=== PATIENT | male | born 1965 | race Caucasian/White ===

== ENCOUNTER 2020-04-06 18:05 | Emergency (ER) | payer SELFPAY ==
[~2020-04-06] VITALS: Ht 175.3 cm; Wt 99.8 kg
[2020-04-06 18:39] LABS: BASOPHILS % 0.4 % (0.0-1.0); EOSINOPHILS # (AUTO) 0.2 (0.0-0.4); EOSINOPHILS % 2.4 % (0.0-6.0); HEMATOCRIT 43.1 % (38.2-49.6); HEMOGLOBIN 14.6 g/dL (14.0-18.0); LYMPHOCYTES # (AUTO) 2.4 (1.0-3.2); LYMPHOCYTES % 30.9 % (18.0-39.1); MEAN CORPUSCULAR HEMOGLOBIN 27.4 pg (28-32); MEAN CORPUSCULAR HGB CONC 33.9 g/dL (31-35); MEAN CORPUSCULAR VOLUME 80.9 fL (81-99); MONOCYTES # (AUTO) 0.4 (0.2-0.8); MONOCYTES % 5.7 % (4.4-11.3); NEUTROPHILS # (AUTO) 4.6 (2.1-6.9); NEUTROPHILS % 59.8 % (38.7-80.0); PLATELET COUNT 285 x10e3/uL (140-360); RED BLOOD COUNT 5.33 x10e6/uL (4.3-5.7); RED CELL DISTRIBUTION WIDTH 12.5 % (11.7-14.4)
--- NOTE | 2020-04-06 18:39 | Emergency Department Note ---
History of Present Illnes History of Present Illness Chief Complaint: Chest Pain History of Present Illness This is a 54 year old male Chief Complaint Comment PATIENT IN FROM [place] E WITH COMPLAINTS OF HEAD PAIN S/P FALL. ALSO WITH COMPLAINTS OF CHEST PAIN X 2 WEEKS. PATIENT REPORTS THAT HE IS A DIABETIC AND HAS NOT BEEN ON HIS MEDICATION X 6 MONTHS. Historian: Patient Arrival Mode: Car Gate Services Supervisor Required: No Onset (how long ago): day(s) (2) Location: Head Quality: Dull Radiation: Reports non-radiation Severity: mild Onset quality: sudden Duration (how long): day(s) (2) Progression: unchanged Chronicity: new Context: Denies recent illness, Denies recent surgery Relieving factors: none Exacerbating factors: none Associated symptoms: Reports denies other symptoms Treatments prior to arrival: none Past Medical/Family History Physician Review I have reviewed the patient's past medical and family history. Any updates have been documented here. Past Medical History Recent Fever: No Clinical Suspicion of Infectio: No New/Unexplained Change in Ment: No Past Medical History: Hypertension, Diabetes, Hyperlipedemia Other Surgery: LEFT HAND Social History Smoking Cessation: Unknown if ever smoked Counseling Performed: No Alcohol Use: Occasional Any Illegal Drug Use: No Physically hurt or threatened: No Other Last Tetanus: UNKNOWN Any Pre-Existing Lines (PICC,: No Review of Systems Review of Systems Constitutional: Reports no symptoms EENTM: Reports no symptoms Cardiovascular: Reports as per HPI, Reports chest pain (x2 weeks) Respiratory: Reports no symptoms Gastrointestinal: Reports no symptoms Genitourinary: Reports no symptoms Musculoskeletal: Reports no symptoms Integumentary: Reports no symptoms Neurological: Reports headache Psychological: Reports no symptoms Endocrine: Reports no symptoms Hematological/Lymphatic: Reports no symptoms Physical Exam Related Data Allergies: Coded Allergies: No Known Allergies (Unverified , 07/28/12) Triage Vital Signs Vital Signs Date Time Temp Pulse Resp B/P (MAP) Pulse Ox O2 Delivery O2 Flow Rate FiO2 04/06/20 18:20 98.9 78 16 139/100 99 Room Air Vital signs reviewed: Yes Physical Exam CONSTITUTIONAL Constitutional: Present well-developed, Present well-nourished HENT HENT: Present normocephalic, Present atraumatic, Present oropharynx clear/moist, Present nose normal HENT L/R: Present left ext ear normal, Present right ext ear normal EYES Eyes: Reports PERRL, Reports conjunctivae normal NECK Neck: Present ROM normal PULMONARY Pulmonary: Present effort normal, Present breath sounds normal CARDIOVASCULAR Cardiovascular: Present regular rhythm, Present heart sounds normal, Present capillary refill normal, Present normal rate GASTROINTESTINAL Abdominal: Present soft, Present nontender, Present bowel sounds normal GENITOURINARY Genitourinary: Present exam deferred SKIN Skin: Present warm, Present dry MUSCULOSKELETAL Musculoskeletal: Present ROM normal NEUROLOGICAL Neurological: Present alert, Present oriented x 3, Present no gross motor or sensory deficits PSYCHOLOGICAL Psychological: Present mood/affect normal, Present judgement normal Results Laboratory Laboratory Laboratory Tests Test 04/06/20 18:30 Procedures 12 Lead ECG Interpretation ECG Interpretation : ECG: ECG 1 Gate Services Supervisor: Interpreted by ED physician Date: Apr 06, 2020 Rhythm: sinus rhythm Rate: normal BPM: 79 QRS axis: normal ST segments normal: Yes T waves normal: Yes Clinical Impression: non-specific ECG Assessment & Plan Medical Decision Making MDM 54-year-old male with a past medical history significant for diabetes presents for chest pain for 2 weeks and headache after hitting his head. He is concerned he has a concussion. Examination shows no trauma to head, no focal neurologic deficits, cranial nerves II-12 are intact. Prostate stable, within acceptable limits. He will not require a head CT. CardioPulmonary workup is largely unremarkable and patient's permission discharge. Reassessment Reassessment time: 19:28 Reassessment Well appearing, NAD Assessment & Plan Final Impression: (1) Chest pain Depart Disposition: HOME, SELF-CARE Last Vital Signs Date Time Temp Pulse Resp B/P (MAP) Pulse Ox O2 Delivery O2 Flow Rate FiO2 04/06/20 18:20 98.9 78 16 139/100 99 Room Air Home Meds No Active Prescriptions or Reported Meds RAHUL COX MD Apr 06, 2020 18:39
[2020-04-06 18:57] LABS: ALANINE AMINOTRANSFERASE 23 IU/L (0-55); ALBUMIN 3.9 g/dL (3.5-5.0); ALBUMIN/GLOBULIN RATIO 1.1 (0.8-2.0); ALKALINE PHOSPHATASE 90 IU/L (40-150); BLOOD UREA NITROGEN 11 mg/dL (7-26); BUN/CREATININE RATIO 10 (6-25); CALCIUM 9.6 mg/dL (8.4-10.2); CARBON DIOXIDE 22 mmol/L (22-29); CHLORIDE 102 mmol/L (98-107); CREATININE, SERUM 1.06 mg/dL (0.72-1.25); EST GLOMERULAR FILTRATION RATE > 60 ML/MIN (60-); GLUCOSE 324 mg/dL (74-118); LIPASE 21 U/L (8-78); SODIUM 138 mmol/L (136-145)
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
--- NOTE | 2020-04-06 20:12 | Diagnostic Imaging Report ---
EXAMINATION: CHEST SINGLE (PORTABLE) INDICATION: Chest pain. COMPARISON: Chest x-ray on 08/18/2019. FINDINGS: TUBES and LINES: None. LUNGS: Normal lung volumes. Lungs are clear. No consolidations. PLEURA: No pleural effusion or pneumothorax. HEART AND MEDIASTINUM: The cardiomediastinal silhouette is unremarkable. BONES AND SOFT TISSUES: No acute osseous lesion. Soft tissues are unremarkable. UPPER ABDOMEN: No free air under the diaphragm. IMPRESSION: No acute thoracic radiographic abnormality. Signed by: Shawna Guerra MD on 04/06/2020 8:09 PM
== END 2020-04-06 20:09 | disposition home or self-care (01) ==
LOC: ER 18:19
DX: R07.9 Chest pain, unspecified (principal); E11.65 Type 2 diabetes mellitus with hyperglycemia; R51 Headache; I10 Essential (primary) hypertension; E78.5 Hyperlipidemia, unspecified
CPT/HCPCS: 36415; 71045; 80053; 83690; 84484; 85025; 93005; 99283

== ENCOUNTER 2020-05-07 22:35 | Emergency (ER) | payer SELFPAY ==
[~2020-05-07] VITALS: Ht 182.9 cm; Wt 99.8 kg
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
[2020-05-07] MEDS ORDERED: MORPHINE SULFATE INJ 4 MG/ML INJ 1ML IV STA (22:53)
[2020-05-07] MEDS ORDERED: ONDANSETRON HCL INJ 2MG/ML 2ML 2 MG/ML VIAL IV STA (22:59)
[2020-05-07 23:10] LABS: BASOPHILS % 0.5 % (0.0-1.0); HEMATOCRIT 41.5 % (38.2-49.6); HEMOGLOBIN 14.1 g/dL (14.0-18.0); LYMPHOCYTES # (AUTO) 1.4 (1.0-3.2); LYMPHOCYTES % 32.5 % (18.0-39.1); MEAN CORPUSCULAR VOLUME 79.5 fL (81-99); MONOCYTES # (AUTO) 0.4 (0.2-0.8); MONOCYTES % 10.4 % (4.4-11.3); NEUTROPHILS # (AUTO) 2.4 (2.1-6.9); NEUTROPHILS % 55.7 % (38.7-80.0); PLATELET COUNT 145 x10e3/uL (140-360); RED BLOOD COUNT 5.22 x10e6/uL (4.3-5.7); RED CELL DISTRIBUTION WIDTH 12.1 % (11.7-14.4)
[2020-05-07 23:31] LABS: ALANINE AMINOTRANSFERASE 34 IU/L (0-55); ALBUMIN 4.1 g/dL (3.5-5.0); ALBUMIN/GLOBULIN RATIO 1.4 (0.8-2.0); ALKALINE PHOSPHATASE 77 IU/L (40-150); BLOOD UREA NITROGEN 14 mg/dL (7-26); BUN/CREATININE RATIO 13 (6-25); CALCIUM 8.5 mg/dL (8.4-10.2); CARBON DIOXIDE 25 mmol/L (22-29); CHLORIDE 96 mmol/L (98-107); CREATININE, SERUM 1.11 mg/dL (0.72-1.25); EST GLOMERULAR FILTRATION RATE > 60 ML/MIN (60-); SODIUM 134 mmol/L (136-145)
[2020-05-07 23:47] LABS: GLUCOSE 412 mg/dL (74-118)
[2020-05-07] MEDS ORDERED: SODIUM CHLORIDE 0.9% 1000ML 1,000 ML ONE (23:57)
[2020-05-07] MEDS ORDERED: IOPAMIDOL 370 MG/ML 200 ML INFUS..BTL INJ ONE (23:57)
[2020-05-07] MEDS ORDERED: SODIUM CHLORIDE 0.9% 50ML 50 ML ONE (23:57)
[2020-05-08] MEDS ORDERED: SODIUM CHLORIDE 0.9% 1000ML 1,000 ML IV ONE
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
--- NOTE | 2020-05-08 02:04 | NUR ---
O2 saturation noted to drop to 89% on room air. Patient in no distress at this time but states he does feel short of breath. Patient placed on 2L NC.
[2020-05-08 02:35] VITALS: BP 135/83
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
--- OUTSIDE RECORDS SUMMARY | 2020-05-08 16:49 | XMS REPORT | Continuity of Care Document ---
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 HEMATOLOGY RBC 5.21 4.70 - 6.10 01/20/2020 [facility] HEMATOLOGY Hgb 14.4 14.0 - 18.0 01/20/2020 [facility] HEMATOLOGY Hct 42.7 42.0 - 54.0 01/20/2020 [facility] HEMATOLOGY MCV 82.0 80.0 - 94.0 01/20/2020 [facility] HEMATOLOGY MCH 27.6 27.0 - 31.0 01/20/2020 [facility] HEMATOLOGY MCHC 33.7 32.0 - 36.0 01/20/2020 [facility] HEMATOLOGY RDW 13.6 11.5 - 14.5 01/20/2020 [facility] HEMATOLOGY Platelet 287 133 - 450 01/20/2020 [facility] HEMATOLOGY MPV 7.5 7.4 - 10.4 01/20/2020 [facility] HEMATOLOGY Segs 59.1 45.0 - 75.0 01/20/2020 [facility] HEMATOLOGY Lymphocytes 32.0 20.0 - 40.0 01/20/2020 [facility] HEMATOLOGY Monocytes 5.8 2.0 - 12.0 01/20/2020 [facility] HEMATOLOGY Eosinophils 2.7 0.0 - 4.0 01/20/2020 [facility] HEMATOLOGY Basophils 0.4 0.0 - 1.0 01/20/2020 [facility] HEMATOLOGY Neutrophils # 5.5 1.5 - 8.1 01/20/2020 [facility] HEMATOLOGY Lymphocytes # 3.0 1.0 - 5.5 01/20/2020 [facility] HEMATOLOGY Monocytes # 0.5 0.0 - 0.8 01/20/2020 [facility] HEMATOLOGY Eosinophils # 0.3 0.0 - 0.5 01/20/2020 [facility] CARDIAC ENZYMES Troponin-I <0.02 0.00 - 0.40 01/18/2020 [facility] CARDIAC ENZYMES Total CK 85 12 - 191 01/18/2020 [facility] CHEM PANEL Glucose Lvl 261 70 - 99 01/18/2020 [facility] CHEM PANEL BUN 15 7 - 22 01/18/2020 [facility] CHEM PANEL Creatinine Lvl 1.06 0.50 - 1.40 01/18/2020 [facility] CHEM PANEL Sodium Lvl 137 135 - 145 01/18/2020 [facility] CHEM PANEL Potassium Lvl 4.7 3.5 - 5.1 01/18/2020 [facility] CHEM PANEL Chloride Lvl 101 95 - 109 01/18/2020 [facility] CHEM PANEL CO2 30 24 - 32 01/18/2020 [facility] CHEM PANEL Calcium Lvl 9.6 8.5 - 10.5 01/18/2020 [facility] CHEM PANEL Total Protein 7.6 6.4 - 8.4 01/18/2020 [facility] CHEM PANEL Albumin Lvl 3.7 3.5 - 5.0 01/18/2020 [facility] CHEM PANEL ALT 30 0 - 65 01/18/2020 [facility] CHEM PANEL AST 15 0 - 37 01/18/2020 [facility] CHEM PANEL Alk Phos 87 39 - 136 01/18/2020 [facility] CHEM PANEL Bili Total 0.4 0.2 - 1.3 01/18/2020 [facility] CHEM PANEL AGAP 10.7 10.0 - 20.0 01/18/2020 [facility] CHEM PANEL B/C Ratio 14 6 - 25 01/18/2020 [facility] CHEM PANEL Globulin 3.9 2.7 - 4.2 01/18/2020 [facility] CHEM PANEL A/G Ratio 0.9 0.7 - 1.6 01/18/2020 [facility] CHEM PANEL eGFR 80 01/18/2020 Result Comment: The eGFR is calculated using the CKD-EPI formula. In most young, healthy individuals the eGFR will be >90 mL/min/1.73m2. The eGFR declines with age. An eGFR of 60-89 may be normal in some populations, particularly the elderly, for whom the CKD-EPI formula has not been extensively validated. Use of the eGFR is not recommended in the following populations:

Individuals with unstable creatinine concentrations, including patients and those with serious co-morbid conditions.

Patients with extremes in muscle mass or diet.

The data above are obtained from the National Kidney Disease Education Program (NKDEP) which additionally recommends that when the eGFR is used in patients with extremes of body mass index for purposes of drug dosing, the eGFR should be multiplied by the estimated BMI. [facility] CHEM PANEL Lipase Lvl 82 73 - 393 01/18/2020 [facility] HEMATOLOGY WBC 8.4 3.7 - 10.4 01/18/2020 [facility] HEMATOLOGY RBC 5.27 4.70 - 6.10 01/18/2020 [facility] HEMATOLOGY Hgb 14.9 14.0 - 18.0 01/18/2020 [facility] HEMATOLOGY Hct 43.3 42.0 - 54.0 01/18/2020 [facility] HEMATOLOGY MCV 82.2 80.0 - 94.0 01/18/2020 [facility] HEMATOLOGY MCH 28.3 27.0 - 31.0 01/18/2020 [facility] HEMATOLOGY MCHC 34.4 32.0 - 36.0 01/18/2020 [facility] HEMATOLOGY RDW 13.8 11.5 - 14.5 01/18/2020 [facility] HEMATOLOGY Platelet 264 133 - 450 01/18/2020 [facility] HEMATOLOGY MPV 7.3 7.4 - 10.4 01/18/2020 [facility] HEMATOLOGY Segs 68.6 45.0 - 75.0 01/18/2020 [facility] HEMATOLOGY Lymphocytes 22.3 20.0 - 40.0 01/18/2020 [facility] HEMATOLOGY Monocytes 6.1 2.0 - 12.0 01/18/2020 [facility] HEMATOLOGY Eosinophils 2.5 0.0 - 4.0 01/18/2020 [facility] HEMATOLOGY Basophils 0.5 0.0 - 1.0 01/18/2020 [facility] HEMATOLOGY Neutrophils # 5.7 1.5 - 8.1 01/18/2020 [facility] HEMATOLOGY Lymphocytes # 1.9 1.0 - 5.5 01/18/2020 [facility] HEMATOLOGY Monocytes # 0.5 0.0 - 0.8 01/18/2020 [facility] HEMATOLOGY Eosinophils # 0.2 0.0 - 0.5 01/18/2020 [facility] CHEM PANEL Glucose Lvl 194 70 - 99 01/14/2020 [facility] CHEM PANEL BUN 8 7 - 22 01/14/2020 [facility] CHEM PANEL Creatinine Lvl 0.76 0.50 - 1.40 01/14/2020 [facility] CHEM PANEL Sodium Lvl 139 135 - 145 01/14/2020 [facility] CHEM PANEL Potassium Lvl 3.4 3.5 - 5.1 01/14/2020 [facility] CHEM PANEL Chloride Lvl 104 95 - 109 01/14/2020 [facility] CHEM PANEL CO2 32 24 - 32 01/14/2020 [facility] CHEM PANEL Calcium Lvl 8.8 8.5 - 10.5 01/14/2020 [facility] CHEM PANEL AGAP 6.4 10.0 - 20.0 01/14/2020 [facility] CHEM PANEL eGFR 104 01/14/2020 Result Comment: The eGFR is calculated using the CKD-EPI formula. In most young, healthy individuals the eGFR will be >90 mL/min/1.73m2. The eGFR declines with age. An eGFR of 60-89 may be normal in some populations, particularly the elderly, for whom the CKD-EPI formula has not been extensively validated. Use of the eGFR is not recommended in the following populations:

Individuals with unstable creatinine concentrations, including patients and those with serious co-morbid conditions.

Patients with extremes in muscle mass or diet.

The data above are obtained from the National Kidney Disease Education Program (NKDEP) which additionally recommends that when the eGFR is used in patients with extremes of body mass index for purposes of drug dosing, the eGFR should be multiplied by the estimated BMI. [facility] CHEM PANEL Albumin Lvl 3.6 3.5 - 5.0 01/14/2020 [facility] CHEM PANEL ALT 27 0 - 65 01/14/2020 [facility] CHEM PANEL AST 10 0 - 37 01/14/2020 [facility] CHEM PANEL Bili Direct <0.1 0.0 - 0.3 01/14/2020 [facility] CHEM PANEL Total Protein 7.5 6.4 - 8.4 01/14/2020 [facility] CHEM PANEL Globulin 3.9 2.7 - 4.2 01/14/2020 [facility] CHEM PANEL A/G Ratio 0.9 0.7 - 1.6 01/14/2020 [facility] CHEM PANEL Alk Phos 81 39 - 136 01/14/2020 [facility] CHEM PANEL Bili Total 0.4 0.2 - 1.3 01/14/2020 [facility] CHEM PANEL Bili Indirect Unabl e to Calculate 0.0 - 1.0 01/14/2020 [facility] CHEM PANEL Lipase Lvl 72 73 - 393 01/14/2020 [facility] HEMATOLOGY WBC 7.9 3.7 - 10.4 01/14/2020 [facility] HEMATOLOGY RBC 5.04 4.70 - 6.10 01/14/2020 [facility] HEMATOLOGY Hgb 14.0 14.0 - 18.0 01/14/2020 [facility] HEMATOLOGY Hct 41.5 42.0 - 54.0 01/14/2020 [facility] HEMATOLOGY MCV 82.3 80.0 - 94.0 01/14/2020 [facility] HEMATOLOGY MCH 27.8 27.0 - 31.0 01/14/2020 [facility] HEMATOLOGY MCHC 33.8 32.0 - 36.0 01/14/2020 [facility] HEMATOLOGY RDW 13.6 11.5 - 14.5 01/14/2020 [facility] HEMATOLOGY Platelet 254 133 - 450 01/14/2020 [facility] HEMATOLOGY MPV 7.5 7.4 - 10.4 01/14/2020 [facility] HEMATOLOGY Segs 54.2 45.0 - 75.0 01/14/2020 [facility] HEMATOLOGY Lymphocytes 35.5 20.0 - 40.0 01/14/2020 [facility] HEMATOLOGY Monocytes 7.2 2.0 - 12.0 01/14/2020 [facility] HEMATOLOGY Eosinophils 2.5 0.0 - 4.0 01/14/2020 [facility] HEMATOLOGY Basophils 0.6 0.0 - 1.0 01/14/2020 [facility] HEMATOLOGY Neutrophils # 4.3 1.5 - 8.1 01/14/2020 [facility] HEMATOLOGY Lymphocytes # 2.8 1.0 - 5.5 01/14/2020 [facility] HEMATOLOGY Monocytes # 0.6 0.0 - 0.8 01/14/2020 [facility] HEMATOLOGY Eosinophils # 0.2 0.0 - 0.5 01/14/2020 [facility] RAPID Grp A Strep Scr Positive *ABN* (01/09/20 12:15 AM) Negative 01/09/2020 [facility] CHEM PANEL Lactic Acid WB 1.6 0.5 - 2.2 04/04/2018 [facility] CHEM PANEL B/C Ratio 14 6 - 25 04/04/2018 [facility] CHEM PANEL A/G Ratio 1.0 0.7 - 1.6 04/04/2018 [facility] CHEM PANEL Globulin 3.6 2.7 - 4.2 04/04/2018 [facility] CHEM PANEL AGAP 13.0 10.0 - 20.0 04/04/2018 [facility] CHEM PANEL eGFR 96 04/04/2018 Result Comment: The eGFR is calculated using the CKD-EPI formula. In most young, healthy individuals the eGFR will be >90 mL/min/1.73m2. The eGFR declines with age. An eGFR of 60-89 may be normal in some populations, particularly the elderly, for whom the CKD-EPI formula has not been extensively validated. Use of the eGFR is not recommended in the following populations:

Individuals with unstable creatinine concentrations, including patients and those with serious co-morbid conditions.

Patients with extremes in muscle mass or diet.

The data above are obtained from the National Kidney Disease Education Program (NKDEP) which additionally recommends that when the eGFR is used in patients with extremes of body mass index for purposes of drug dosing, the eGFR should be multiplied by the estimated BMI. [facility] CHEM PANEL Glucose Lvl 251 70 - 99 04/04/2018 [facility] CHEM PANEL Creatinine Lvl 0.92 0.50 - 1.40 04/04/2018 [facility] CHEM PANEL AST 18 0 - 37 04/04/2018 [facility] CHEM PANEL Albumin Lvl 3.7 3.5 - 5.0 04/04/2018 [facility] CHEM PANEL Calcium Lvl 8.6 8.5 - 10.5 04/04/2018 [facility] CHEM PANEL ALT 37 0 - 65 04/04/2018 [facility] CHEM PANEL Total Protein 7.3 6.4 - 8.4 04/04/2018 [facility] CHEM PANEL Alk Phos 95 39 - 136 04/04/2018 [facility] CHEM PANEL Bili Total 0.9 0.2 - 1.3 04/04/2018 [facility] CHEM PANEL Chloride Lvl 106 95 - 109 04/04/2018 [facility] CHEM PANEL Potassium Lvl 4.0 3.5 - 5.1 04/04/2018 [facility] CHEM PANEL Sodium Lvl 142 135 - 145 04/04/2018 [facility] CHEM PANEL CO2 27 24 - 32 04/04/2018 [facility] CHEM PANEL BUN 13 7 - 22 04/04/2018 [facility] HEMATOLOGY WBC 10.1 3.7 - 10.4 04/04/2018 [facility] HEMATOLOGY Hct 42.4 42.0 - 54.0 04/04/2018 [facility] HEMATOLOGY MCV 81.4 80.0 - 94.0 04/04/2018 [facility] HEMATOLOGY Hgb 14.6 14.0 - 18.0 04/04/2018 [facility] HEMATOLOGY RBC 5.21 4.70 - 6.10 04/04/2018 [facility] HEMATOLOGY MCH 28.1 27.0 - 31.0 04/04/2018 [facility] HEMATOLOGY MCHC 34.5 32.0 - 36.0 04/04/2018 [facility] HEMATOLOGY MPV 8.0 7.4 - 10.4 04/04/2018 [facility] HEMATOLOGY Platelet 235 133 - 450 04/04/2018 [facility] HEMATOLOGY RDW 13.4 11.5 - 14.5 04/04/2018 [facility] HEMATOLOGY Monocytes 5.3 2.0 - 12.0 04/04/2018 [facility] HEMATOLOGY Segs 73.2 45.0 - 75.0 04/04/2018 [facility] HEMATOLOGY Eosinophils 1.9 0.0 - 4.0 04/04/2018 [facility] HEMATOLOGY Lymphocytes 19.3 20.0 - 40.0 04/04/2018 [facility] HEMATOLOGY Basophils 0.3 0.0 - 1.0 04/04/2018 [facility] HEMATOLOGY Lymphocytes # 2.0 1.0 - 5.5 04/04/2018 [facility] HEMATOLOGY Monocytes # 0.5 0.0 - 0.8 04/04/2018 [facility] HEMATOLOGY Neutrophils # 7.4 1.5 - 8.1 04/04/2018 [facility] HEMATOLOGY Eosinophils # 0.2 0.0 - 0.5 04/04/2018 [facility] URINE AND STOOL UA Sq Epi Occasional /LPF Few /LPF 03/27/2017 [facility] URINE AND STOOL UA Glucose 500 03/27/2017 [facility] URINE AND STOOL UA Ketones Negative 03/27/2017 [facility] URINE AND STOOL UA Urobilinogen <=1.0 mg/dL 0.1 - 1.0 03/27/2017 [facility] URINE AND STOOL UA Leuk Est Negative (03/27/17 3:18 AM) Negative 03/27/2017 [facility] URINE AND STOOL UA WBC <1 0 - 5 03/27/2017 [facility] URINE AND STOOL UA Turbidity Clear (03/27/17 3:18 AM) Clear 03/27/2017 [facility] URINE AND STOOL UA Spec Grav 1.007 <=1.030 03/27/2017 [facility] URINE AND STOOL UA Color Light Yellow *NA* (03/27/17 3:18 AM) Yellow 03/27/2017 [facility] URINE AND STOOL UA pH 6.0 5.0 - 8.0 03/27/2017 [facility] URINE AND STOOL UA Nitrite Negative (03/27/17 3:18 AM) Negative 03/27/2017 [facility] URINE AND STOOL UA Blood Negative (03/27/17 3:18 AM) Negative 03/27/2017 [facility] URINE AND STOOL UA Bili Negative *NA* (03/27/17 3:18 AM) Negative 03/27/2017 [facility] URINE AND STOOL UA Protein Negative mg/dL Negative mg/dL 03/27/2017 [facility] CARDIAC ENZYMES CK MB Index <0.9 0.0 - 2.5 03/27/2017 [facility] CARDIAC ENZYMES BNP 19 <=100 pg/mL 03/27/2017 [facility] CARDIAC ENZYMES CK MB <0.5 0.5 - 3.6 03/27/2017 [facility] CARDIAC ENZYMES Total CK 58 12 - 191 03/27/2017 [facility] CARDIAC ENZYMES Troponin-I <0.02 0.00 - 0.40 03/27/2017 [facility] CHEM PANEL Lipase Lvl 213 73 - 393 03/27/2017 [facility] CHEM PANEL eGFR 92 03/27/2017 Result Comment: The eGFR is calculated using the CKD-EPI formula. In most young, healthy individuals the eGFR will be >90 mL/min/1.73m2. The eGFR declines with age. An eGFR of 60-89 may be normal in some populations, particularly the elderly, for whom the CKD-EPI formula has not been extensively validated. Use of the eGFR is not recommended in the following populations:

Individuals with unstable creatinine concentrations, including patients and those with serious co-morbid conditions.

Patients with extremes in muscle mass or diet.

The data above are obtained from the National Kidney Disease Education Program (NKDEP) which additionally recommends that when the eGFR is used in patients with extremes of body mass index for purposes of drug dosing, the eGFR should be multiplied by the estimated BMI. [facility] CHEM PANEL Creatinine Lvl 0.96 0.50 - 1.40 03/27/2017 [facility] CHEM PANEL CO2 30 24 - 32 03/27/2017 [facility] CHEM PANEL Total Protein 7.8 6.4 - 8.4 03/27/2017 [facility] CHEM PANEL BUN 10 7 - 22 03/27/2017 [facility] CHEM PANEL Glucose Lvl 212 70 - 99 03/27/2017 [facility] CHEM PANEL Bili Total 0.3 0.2 - 1.3 03/27/2017 [facility] CHEM PANEL Alk Phos 101 39 - 136 03/27/2017 [facility] CHEM PANEL Albumin Lvl 3.8 3.5 - 5.0 03/27/2017 [facility] CHEM PANEL AST 16 0 - 37 03/27/2017 [facility] CHEM PANEL ALT 46 0 - 65 03/27/2017 [facility] CHEM PANEL A/G Ratio 1.0 0.7 - 1.6 03/27/2017 [facility] CHEM PANEL AGAP 10.8 10.0 - 20.0 03/27/2017 [facility] CHEM PANEL Globulin 4.0 2.7 - 4.2 03/27/2017 [facility] CHEM PANEL B/C Ratio 10 6 - 25 03/27/2017 [facility] CHEM PANEL Calcium Lvl 9.2 8.5 - 10.5 03/27/2017 [facility] CHEM PANEL Potassium Lvl 3.8 3.5 - 5.1 03/27/2017 [facility] CHEM PANEL Chloride Lvl 105 95 - 109 03/27/2017 [facility] CHEM PANEL Sodium Lvl 142 135 - 145 03/27/2017 [facility] HEMATOLOGY Monocytes # 0.6 0.0 - 0.8 03/27/2017 [facility] HEMATOLOGY Eosinophils # 0.1 0.0 - 0.5 03/27/2017 [facility] HEMATOLOGY Lymphocytes 20.8 20.0 - 40.0 03/27/2017 [facility] HEMATOLOGY Segs 72.7 45.0 - 75.0 03/27/2017 [facility] HEMATOLOGY Monocytes 5.2 2.0 - 12.0 03/27/2017 [facility] HEMATOLOGY Eosinophils 0.8 0.0 - 4.0 03/27/2017 [facility] HEMATOLOGY Lymphocytes # 2.2 1.0 - 5.5 03/27/2017 [facility] HEMATOLOGY Segs-Bands # 7.8 1.5 - 8.1 03/27/2017 [facility] HEMATOLOGY Basophils 0.5 0.0 - 1.0 03/27/2017 [facility] HEMATOLOGY RDW 13.2 11.5 - 14.5 03/27/2017 [facility] HEMATOLOGY MPV 7.5 7.4 - 10.4 03/27/2017 [facility] HEMATOLOGY Platelet 266 133 - 450 03/27/2017 [facility] HEMATOLOGY MCH 28.2 27.0 - 31.0 03/27/2017 [facility] HEMATOLOGY MCHC 35.1 32.0 - 36.0 03/27/2017 [facility] HEMATOLOGY Hgb 14.5 14.0 - 18.0 03/27/2017 [facility] HEMATOLOGY RBC 5.15 4.70 - 6.10 03/27/2017 [facility] HEMATOLOGY MCV 80.5 80.0 - 94.0 03/27/2017 [facility] HEMATOLOGY Hct 41.4 42.0 - 54.0 03/27/2017 [facility] HEMATOLOGY WBC 10.8 3.7 - 10.4 03/27/2017 [facility] DRUG SCREEN U Amph Scr Nega tive *NA* (01/13/17 6:06 PM) Negative 01/13/2017 [facility] DRUG SCREEN U Courtney Scr Nega tive *NA* (01/13/17 6:06 PM) Negative 01/13/2017 [facility] DRUG SCREEN UDS Note See Note *NA* (01/13/17 6:06 PM) 01/13/2017 [facility] DRUG SCREEN U Opiate Scr Nega tive *NA* (01/13/17 6:06 PM) Negative 01/13/2017 [facility] DRUG SCREEN U Phencyc Scr Nega tive *NA* (01/13/17 6:06 PM) Negative 01/13/2017 [facility] DRUG SCREEN U Benzodia Scr Nega tive *NA* (01/13/17 6:06 PM) Negative 01/13/2017 [facility] DRUG SCREEN U Cocaine Scr Nega tive *NA* (01/13/17 6:06 PM) Negative 01/13/2017 [facility] DRUG SCREEN U Cannab Scr Nega tive *NA* (01/13/17 6:06 PM) Negative 01/13/2017 [facility] URINE AND STOOL UA Sq Epi None Seen 01/13/2017 [facility] URINE AND STOOL UA WBC <1 0 - 5 01/13/2017 [facility] URINE AND STOOL UA RBC <1 0 - 2 01/13/2017 [facility] URINE AND STOOL UA Urobilinogen <=1.0 mg/dL 0.1 - 1.0 01/13/2017 [facility] URINE AND STOOL UA Glucose 500 01/13/2017 [facility] URINE AND STOOL UA Nitrite Negative (01/13/17 6:06 PM) Negative 01/13/2017 [facility] URINE AND STOOL UA Blood Negative (01/13/17 6:06 PM) Negative 01/13/2017 [facility] URINE AND STOOL UA Ketones Trace mg/dL Negative mg/dL 01/13/2017 [facility] URINE AND STOOL UA Bili Negative *NA* (01/13/17 6:06 PM) Negative 01/13/2017 [facility] URINE AND STOOL UA Leuk Est Negative (01/13/17 6:06 PM) Negative 01/13/2017 [facility] URINE AND STOOL UA Protein Negative mg/dL Negative mg/dL 01/13/2017 [facility] URINE AND STOOL UA pH 5.0 5.0 - 8.0 01/13/2017 [facility] URINE AND STOOL UA Turbidity Clear (01/13/17 6:06 PM) Clear 01/13/2017 [facility] URINE AND STOOL UA Spec Grav 1.026 <=1.030 01/13/2017 [facility] URINE AND STOOL UA Color Yellow *NA* (01/13/17 6:06 PM) Yellow 01/13/2017 [facility] CARDIAC ENZYMES CK MB Index <1.0 0.0 - 2.5 01/13/2017 [facility] CARDIAC ENZYMES Total CK 51 12 - 191 01/13/2017 [facility] CARDIAC ENZYMES CK MB <0.5 0.5 - 3.6 01/13/2017 [facility] CARDIAC ENZYMES Troponin-I <0.02 0.00 - 0.40 01/13/2017 [facility] CHEM PANEL ALT 53 0 - 65 01/13/2017 [facility] CHEM PANEL Creatinine Lvl 0.88 0.50 - 1.40 01/13/2017 [facility] CHEM PANEL Total Protein 7.7 6.4 - 8.4 01/13/2017 [facility] CHEM PANEL Alk Phos 121 39 - 136 01/13/2017 [facility] CHEM PANEL Bili Total 0.4 0.2 - 1.3 01/13/2017 [facility] CHEM PANEL AST 31 0 - 37 01/13/2017 [facility] CHEM PANEL B/C Ratio 15 6 - 25 01/13/2017 [facility] CHEM PANEL Globulin 3.9 2.7 - 4.2 01/13/2017 [facility] CHEM PANEL A/G Ratio 1.0 0.7 - 1.6 01/13/2017 [facility] CHEM PANEL eGFR 100 01/13/2017 Result Comment: The eGFR is calculated using the CKD-EPI formula. In most young, healthy individuals the eGFR will be >90 mL/min/1.73m2. The eGFR declines with age. An eGFR of 60-89 may be normal in some populations, particularly the elderly, for whom the CKD-EPI formula has not been extensively validated. Use of the eGFR is not recommended in the following populations:

Individuals with unstable creatinine concentrations, including patients and those with serious co-morbid conditions.

Patients with extremes in muscle mass or diet.

The data above are obtained from the National Kidney Disease Education Program (NKDEP) which additionally recommends that when the eGFR is used in patients with extremes of body mass index for purposes of drug dosing, the eGFR should be multiplied by the estimated BMI. [facility] CHEM PANEL CO2 30 24 - 32 01/13/2017 [facility] CHEM PANEL AGAP 12.2 10.0 - 20.0 01/13/2017 [facility] CHEM PANEL Calcium Lvl 9.3 8.5 - 10.5 01/13/2017 [facility] CHEM PANEL Albumin Lvl 3.8 3.5 - 5.0 01/13/2017 [facility] CHEM PANEL Chloride Lvl 101 95 - 109 01/13/2017 [facility] CHEM PANEL Glucose Lvl 207 70 - 99 01/13/2017 [facility] CHEM PANEL BUN 13 7 - 22 01/13/2017 [facility] CHEM PANEL Sodium Lvl 139 135 - 145 01/13/2017 [facility] CHEM PANEL Potassium Lvl 4.2 3.5 - 5.1 01/13/2017 [facility] HEMATOLOGY Segs-Bands # 6.6 1.5 - 8.1 01/13/2017 [facility] HEMATOLOGY Eosinophils 2.3 0.0 - 4.0 01/13/2017 [facility] HEMATOLOGY Basophils 0.9 0.0 - 1.0 01/13/2017 [facility] HEMATOLOGY Basophils # 0.1 0.0 - 0.2 01/13/2017 [facility] HEMATOLOGY Eosinophils # 0.2 0.0 - 0.5 01/13/2017 [facility] HEMATOLOGY Lymphocytes # 2.4 1.0 - 5.5 01/13/2017 [facility] HEMATOLOGY Monocytes # 0.6 0.0 - 0.8 01/13/2017 [facility] HEMATOLOGY Segs 66.6 45.0 - 75.0 01/13/2017 [facility] HEMATOLOGY Monocytes 6.1 2.0 - 12.0 01/13/2017 [facility] HEMATOLOGY Lymphocytes 24.1 20.0 - 40.0 01/13/2017 [facility] HEMATOLOGY RBC 5.30 4.70 - 6.10 01/13/2017 [facility] HEMATOLOGY WBC 9.9 3.7 - 10.4 01/13/2017 [facility] HEMATOLOGY MPV 7.5 7.4 - 10.4 01/13/2017 [facility] HEMATOLOGY Platelet 244 133 - 450 01/13/2017 [facility] RDW 13.1 11.5 - 14.5 01/13/2017 [facility] HEMATOLOGY MCHC 34.9 32.0 - 36.0 01/13/2017 [facility] MCH 27.9 27.0 - 31.0 01/13/2017 [facility] Hgb 14.8 14.0 - 18.0 01/13/2017 [facility] HEMATOLOGY MCV 80.0 80.0 - 94.0 01/13/2017 [facility] HEMATOLOGY Hct 42.4 42.0 - 54.0 01/13/2017 [facility] URINE AND STOOL UA Color Straw 07/11/2016 [facility] URINE AND STOOL UA Ketones Negative 07/11/2016 [facility] URINE AND STOOL UA Urobilinogen <=1.0 mg/dL 0.1 - 1.0 07/11/2016 [facility] URINE AND STOOL UA Sq Epi None Seen 07/11/2016 [facility] URINE AND STOOL UA Nitrite Negative (07/10/16 6:30 PM) Negative 07/11/2016 [facility] URINE AND STOOL UA WBC 1 0 - 5 07/11/2016 [facility] URINE AND STOOL UA Mucus Few /LPF None Seen /LPF 07/11/2016 [facility] URINE AND STOOL UA Bili Negative *NA* (07/10/16 6:30 PM) Negative 07/11/2016 [facility] URINE AND STOOL UA Leuk Est Negative (07/10/16 6:30 PM) Negative 07/11/2016 [facility] URINE AND STOOL UA Glucose Negative mg/dL Negative mg/dL 07/11/2016 [facility] URINE AND STOOL UA Protein Negative mg/dL Negative mg/dL 07/11/2016 [facility] URINE AND STOOL UA Blood Negative (07/10/16 6:30 PM) Negative 07/11/2016 [facility] URINE AND STOOL UA Turbidity Clear (07/10/16 6:30 PM) Clear 07/11/2016 [facility] URINE AND STOOL UA Spec Grav 1.003 <=1.030 07/11/2016 [facility] URINE AND STOOL UA pH 7.0 5.0 - 8.0 07/11/2016 [facility] CARDIAC ENZYMES CK MB Index <1.1 0.0 - 2.5 11/13/2015 [facility] CARDIAC ENZYMES Troponin-I <0.02 0.00 - 0.40 11/13/2015 [facility] CARDIAC ENZYMES CK MB <0.5 0.5 - 3.6 11/13/2015 [facility] CARDIAC ENZYMES Total CK 45 12 - 191 11/13/2015 [facility] CHEM PANEL BUN 14 7 - 22 11/13/2015 [facility] CHEM PANEL Bili Total 0.4 0.2 - 1.3 11/13/2015 [facility] CHEM PANEL Alk Phos 90 39 - 136 11/13/2015 [facility] CHEM PANEL AST 20 0 - 37 11/13/2015 [facility] CHEM PANEL A/G Ratio 1.0 0.7 - 1.6 11/13/2015 [facility] CHEM PANEL Globulin 4.0 2.0 - 4.0 11/13/2015 [facility] CHEM PANEL B/C Ratio 12 6 - 25 11/13/2015 [facility] CHEM PANEL Creatinine Lvl 1.12 0.50 - 1.40 11/13/2015 [facility] CHEM PANEL ALT 33 0 - 65 11/13/2015 [facility] CHEM PANEL Total Protein 8.0 6.4 - 8.4 11/13/2015 [facility] CHEM PANEL eGFR 77 11/13/2015 Result Comment: The eGFR is calculated using the CKD-EPI formula. In most young, healthy individuals the eGFR will be >90 mL/min/1.73m2. The eGFR declines with age. An eGFR of 60-89 may be normal in some populations, particularly the elderly, for whom the CKD-EPI formula has not been extensively validated. Use of the eGFR is not recommended in the following populations:

Individuals with unstable creatinine concentrations, including patients and those with serious co-morbid conditions.

Patients with extremes in muscle mass or diet.

The data above are obtained from the National Kidney Disease Education Program (NKDEP) which additionally recommends that when the eGFR is used in patients with extremes of body mass index for purposes of drug dosing, the eGFR should be multiplied by the estimated BMI. [facility] CHEM PANEL Albumin Lvl 4.0 3.5 - 5.0 11/13/2015 [facility] CHEM PANEL AGAP 13.1 10.0 - 20.0 11/13/2015 [facility] CHEM PANEL Calcium Lvl 9.1 8.5 - 10.5 11/13/2015 [facility] CHEM PANEL CO2 28 24 - 32 11/13/2015 [facility] CHEM PANEL Potassium Lvl 4.1 3.5 - 5.1 11/13/2015 [facility] CHEM PANEL Sodium Lvl 138 135 - 145 11/13/2015 [facility] CHEM PANEL Chloride Lvl 101 95 - 109 11/13/2015 [facility] CHEM PANEL Glucose Lvl 188 70 - 99 11/13/2015 [facility] HEMATOLOGY Eosinophils # 0.0 0.0 - 0.5 11/13/2015 [facility] HEMATOLOGY Lymphocytes # 1.5 1.0 - 5.5 11/13/2015 [facility] HEMATOLOGY Basophils # 0.0 0.0 - 0.2 11/13/2015 [facility] HEMATOLOGY Monocytes # 0.7 0.0 - 0.8 11/13/2015 [facility] HEMATOLOGY Segs-Bands # 3.7 1.5 - 8.1 11/13/2015 [facility] HEMATOLOGY Basophils 0.5 0.0 - 1.0 11/13/2015 [facility] HEMATOLOGY Eosinophils 0.7 0.0 - 4.0 11/13/2015 [facility] HEMATOLOGY Monocytes 12.3 2.0 - 12.0 11/13/2015 [facility] HEMATOLOGY Lymphocytes 25.4 20.0 - 40.0 11/13/2015 [facility] Segs 61.1 45.0 - 75.0 11/13/2015 [facility] RDW 13.4 11.5 - 14.5 11/13/2015 [facility] HEMATOLOGY MPV 7.5 7.4 - 10.4 11/13/2015 [facility] Platelet 215 133 - 450 11/13/2015 [facility] MCV 83.0 80.0 - 94.0 11/13/2015 [facility] HEMATOLOGY MCHC 32.5 32.0 - 36.0 11/13/2015 [facility] MCH 26.9 27.0 - 31.0 11/13/2015 [facility] Hct 45.6 42.0 - 54.0 11/13/2015 [facility] HEMATOLOGY Hgb 14.8 14.0 - 18.0 11/13/2015 [facility] HEMATOLOGY RBC 5.50 4.70 - 6.10 11/13/2015 [facility] HEMATOLOGY WBC 6.0 3.7 - 10.4 11/13/2015 [facility] CHEM PANEL Calcium Lvl 9.3 8.5 - 10.5 09/12/2015 [facility] CHEM PANEL Potassium Lvl 3.8 3.5 - 5.1 09/12/2015 [facility] CHEM PANEL Sodium Lvl 138 135 - 145 09/12/2015 [facility] CHEM PANEL Chloride Lvl 103 95 - 109 09/12/2015 [facility] CHEM PANEL eGFR 86 09/12/2015 Result Comment: The eGFR is calculated using the CKD-EPI formula. In most young, healthy individuals the eGFR will be >90 mL/min/1.73m2. The eGFR declines with age. An eGFR of 60-89 may be normal in some populations, particularly the elderly, for whom the CKD-EPI formula has not been extensively validated. Use of the eGFR is not recommended in the following populations:

Individuals with unstable creatinine concentrations, including patients and those with serious co-morbid conditions.

Patients with extremes in muscle mass or diet.

The data above are obtained from the National Kidney Disease Education Program (NKDEP) which additionally recommends that when the eGFR is used in patients with extremes of body mass index for purposes of drug dosing, the eGFR should be multiplied by the estimated BMI. [facility] CHEM PANEL Creatinine Lvl 1.02 0.50 - 1.40 09/12/2015 [facility] CHEM PANEL CO2 27 24 - 32 09/12/2015 [facility] CHEM PANEL Glucose Lvl 129 70 - 99 09/12/2015 [facility] CHEM PANEL BUN 18 7 - 22 09/12/2015 [facility] CHEM PANEL AGAP 11.8 10.0 - 20.0 09/12/2015 [facility] HEMATOLOGY RBC 5.55 4.70 - 6.10 09/12/2015 [facility] HEMATOLOGY Hgb 15.1 14.0 - 18.0 09/12/2015 [facility] HEMATOLOGY WBC 10.5 3.7 - 10.4 09/12/2015 [facility] HEMATOLOGY Hct 45.8 42.0 - 54.0 09/12/2015 [facility] HEMATOLOGY MCV 82.6 80.0 - 94.0 09/12/2015 [facility] HEMATOLOGY MPV 7.8 7.4 - 10.4 09/12/2015 [facility] HEMATOLOGY RDW 12.9 11.5 - 14.5 09/12/2015 [facility] HEMATOLOGY Platelet 302 133 - 450 09/12/2015 [facility] HEMATOLOGY MCH 27.3 27.0 - 31.0 09/12/2015 [facility] HEMATOLOGY MCHC 33.0 32.0 - 36.0 09/12/2015 [facility] HEMATOLOGY Segs-Bands # 7.4 1.5 - 8.1 09/12/2015 [facility] HEMATOLOGY Lymphocytes # 2.2 1.0 - 5.5 09/12/2015 [facility] HEMATOLOGY Basophils 0.3 0.0 - 1.0 09/12/2015 [facility] HEMATOLOGY Eosinophils 2.7 0.0 - 4.0 09/12/2015 [facility] HEMATOLOGY Monocytes # 0.6 0.0 - 0.8 09/12/2015 [facility] HEMATOLOGY Eosinophils # 0.3 0.0 - 0.5 09/12/2015 [facility] HEMATOLOGY Basophils # 0.0 0.0 - 0.2 09/12/2015 [facility] HEMATOLOGY Monocytes 5.8 2.0 - 12.0 09/12/2015 [facility] HEMATOLOGY Segs 70.4 45.0 - 75.0 09/12/2015 [facility] HEMATOLOGY Lymphocytes 20.8 20.0 - 40.0 09/12/2015 [facility] VIRAL - SEROLOGY Influ B Negative (09/12/15 4:12 PM) Negative 09/12/2015 [facility] VIRAL - SEROLOGY Influ A Negative (09/12/15 4:12 PM) Negative 09/12/2015 [facility] CHEM PANEL Lipase Lvl 128 73 - 393 06/06/2015 [facility] CHEM PANEL A/G Ratio 1.1 0.7 - 1.6 06/06/2015 [facility] CHEM PANEL Globulin 3.4 2.0 - 4.0 06/06/2015 [facility] CHEM PANEL B/C Ratio 13 6 - 25 06/06/2015 [facility] CHEM PANEL AGAP 12.9 10.0 - 20.0 06/06/2015 [facility] CHEM PANEL Albumin Lvl 3.8 3.5 - 5.0 06/06/2015 [facility] CHEM PANEL Total Protein 7.2 6.4 - 8.4 06/06/2015 [facility] CHEM PANEL CO2 27 24 - 32 06/06/2015 [facility] CHEM PANEL Glucose Lvl 209 70 - 99 06/06/2015 [facility] CHEM PANEL BUN 12 7 - 22 06/06/2015 [facility] CHEM PANEL Alk Phos 86 39 - 136 06/06/2015 [facility] CHEM PANEL ALT 44 0 - 65 06/06/2015 [facility] CHEM PANEL AST 19 0 - 37 06/06/2015 [facility] CHEM PANEL Bili Total 0.5 0.2 - 1.3 06/06/2015 [facility] CHEM PANEL eGFR 101 06/06/2015 Result Comment: The eGFR is calculated using the CKD-EPI formula. In most young, healthy individuals the eGFR will be >90 mL/min/1.73m2. The eGFR declines with age. An eGFR of 60-89 may be normal in some populations, particularly the elderly, for whom the CKD-EPI formula has not been extensively validated. Use of the eGFR is not recommended in the following populations:

Individuals with unstable creatinine concentrations, including patients and those with serious co-morbid conditions.

Patients with extremes in muscle mass or diet.

The data above are obtained from the National Kidney Disease Education Program (NKDEP) which additionally recommends that when the eGFR is used in patients with extremes of body mass index for purposes of drug dosing, the eGFR should be multiplied by the estimated BMI. [facility] CHEM PANEL Calcium Lvl 8.9 8.5 - 10.5 06/06/2015 [facility] CHEM PANEL Chloride Lvl 105 95 - 109 06/06/2015 [facility] CHEM PANEL Potassium Lvl 3.9 3.5 - 5.1 06/06/2015 [facility] CHEM PANEL Creatinine Lvl 0.9 0.5 - 1.4 06/06/2015 [facility] CHEM PANEL Sodium Lvl 141 135 - 145 06/06/2015 [facility] HEMATOLOGY RBC 5.03 4.70 - 6.10 06/06/2015 [facility] HEMATOLOGY Hgb 14.0 14.0 - 18.0 06/06/2015 [facility] HEMATOLOGY Hct 41.6 42.0 - 54.0 06/06/2015 [facility] HEMATOLOGY WBC 7.3 3.7 - 10.4 06/06/2015 [facility] HEMATOLOGY MCV 82.8 80.0 - 94.0 06/06/2015 [facility] HEMATOLOGY Platelet 253 133 - 450 06/06/2015 [facility] HEMATOLOGY MPV 7.3 7.4 - 10.4 06/06/2015 [facility] HEMATOLOGY RDW 12.4 11.5 - 14.5 06/06/2015 [facility] HEMATOLOGY MCHC 33.6 32.0 - 36.0 06/06/2015 [facility] HEMATOLOGY MCH 27.8 27.0 - 31.0 06/06/2015 [facility] HEMATOLOGY Segs 69.5 45.0 - 75.0 06/06/2015 [facility] HEMATOLOGY Monocytes 5.4 2.0 - 12.0 06/06/2015 [facility] HEMATOLOGY Lymphocytes 21.7 20.0 - 40.0 06/06/2015 [facility] HEMATOLOGY Basophils 0.3 0.0 - 1.0 06/06/2015 [facility] HEMATOLOGY Eosinophils 3.1 0.0 - 4.0 06/06/2015 [facility] HEMATOLOGY Segs-Bands # 5.1 1.5 - 8.1 06/06/2015 [facility] HEMATOLOGY Lymphocytes # 1.6 1.0 - 5.5 06/06/2015 [facility] HEMATOLOGY Monocytes # 0.4 0.0 - 0.8 06/06/2015 [facility] HEMATOLOGY Basophils # 0.0 0.0 - 0.2 06/06/2015 [facility] HEMATOLOGY Eosinophils # 0.2 0.0 - 0.5 06/06/2015 [facility] URINE AND STOOL Occult Bld Stl Negative (04/24/15 4:00 PM) Negative 04/24/2015 [facility] CARDIAC ENZYMES CK MB Index <1.2 0.0 - 2.5 04/24/2015 [facility] CARDIAC ENZYMES Troponin-I <0.02 0.00 - 0.40 04/24/2015 [facility] CARDIAC ENZYMES CK MB <0.5 0.5 - 3.6 04/24/2015 [facility] CARDIAC ENZYMES Total CK 41 12 - 191 04/24/2015 [facility] CHEM PANEL eGFR 101 04/24/2015 Result Comment: The eGFR is calculated using the CKD-EPI formula. In most young, healthy individuals the eGFR will be >90 mL/min/1.73m2. The eGFR declines with age. An eGFR of 60-89 may be normal in some populations, particularly the elderly, for whom the CKD-EPI formula has not been extensively validated. Use of the eGFR is not recommended in the following populations:

Individuals with unstable creatinine concentrations, including patients and those with serious co-morbid conditions.

Patients with extremes in muscle mass or diet.

The data above are obtained from the National Kidney Disease Education Program (NKDEP) which additionally recommends that when the eGFR is used in patients with extremes of body mass index for purposes of drug dosing, the eGFR should be multiplied by the estimated BMI. [facility] CHEM PANEL CO2 26 24 - 32 04/24/2015 [facility] CHEM PANEL Calcium Lvl 9.1 8.5 - 10.5 04/24/2015 [facility] CHEM PANEL Sodium Lvl 141 135 - 145 04/24/2015 [facility] CHEM PANEL Potassium Lvl 3.9 3.5 - 5.1 04/24/2015 [facility] CHEM PANEL AGAP 13.9 10.0 - 20.0 04/24/2015 [facility] CHEM PANEL Chloride Lvl 105 95 - 109 04/24/2015 [facility] CHEM PANEL Glucose Lvl 129 70 - 99 04/24/2015 [facility] CHEM PANEL BUN 14 7 - 22 04/24/2015 [facility] CHEM PANEL Creatinine Lvl 0.9 0.5 - 1.4 04/24/2015 [facility] HEMATOLOGY Monocytes # 0.3 0.0 - 0.8 04/24/2015 [facility] HEMATOLOGY Eosinophils # 0.1 0.0 - 0.5 04/24/2015 [facility] HEMATOLOGY Basophils # 0.0 0.0 - 0.2 04/24/2015 [facility] HEMATOLOGY Lymphocytes # 1.9 1.0 - 5.5 04/24/2015 [facility] HEMATOLOGY Segs-Bands # 5.1 1.5 - 8.1 04/24/2015 [facility] HEMATOLOGY Monocytes 3.9 2.0 - 12.0 04/24/2015 [facility] HEMATOLOGY Eosinophils 1.7 0.0 - 4.0 04/24/2015 [facility] HEMATOLOGY Basophils 0.2 0.0 - 1.0 04/24/2015 [facility] HEMATOLOGY Lymphocytes 25.3 20.0 - 40.0 04/24/2015 [facility] HEMATOLOGY Segs 68.9 45.0 - 75.0 04/24/2015 [facility] HEMATOLOGY RBC 5.18 4.70 - 6.10 04/24/2015 [facility] HEMATOLOGY MCH 28.0 27.0 - 31.0 04/24/2015 [facility] HEMATOLOGY MCHC 33.7 32.0 - 36.0 04/24/2015 [facility] HEMATOLOGY Platelet 251 133 - 450 04/24/2015 [facility] HEMATOLOGY MPV 7.6 7.4 - 10.4 04/24/2015 [facility] HEMATOLOGY WBC 7.4 3.7 - 10.4 04/24/2015 [facility] HEMATOLOGY Hgb 14.5 14.0 - 18.0 04/24/2015 [facility] HEMATOLOGY Hct 43.0 42.0 - 54.0 04/24/2015 [facility] HEMATOLOGY MCV 83.0 80.0 - 94.0 04/24/2015 [facility] HEMATOLOGY RDW 13.4 11.5 - 14.5 04/24/2015 [facility] TOXICOLOGY Acetaminoph Lvl <2 (04/24/15 3:02 PM) 10 - 20 04/24/2015 [facility] TOXICOLOGY Salicylate Lvl <1.7 0.0 - 30.0 04/24/2015 [facility] CARDIAC ENZYMES Troponin-I <0.02 0.00 - 0.40 04/06/2015 [facility] CARDIAC ENZYMES Troponin-I <0.02 0.00 - 0.40 04/06/2015 [facility] [facility] CARDIAC ENZYMES Total CK 40 12 - 191 04/06/2015 [facility] CARDIAC ENZYMES CK MB <0.5 0.5 - 3.6 04/06/2015 [facility] CARDIAC ENZYMES CK MB Index <1.2 0.0 - 2.5 04/06/2015 [facility] CHEM PANEL B/C Ratio 17 6 - 25 04/06/2015 [facility] CHEM PANEL AGAP 12.7 10.0 - 20.0 04/06/2015 [facility] CHEM PANEL Globulin 3.6 2.0 - 4.0 04/06/2015 [facility] CHEM PANEL Bili Total 0.6 0.2 - 1.3 04/06/2015 [facility] CHEM PANEL Alk Phos 69 39 - 136 04/06/2015 [facility] CHEM PANEL AST 8 0 - 37 04/06/2015 [facility] CHEM PANEL A/G Ratio 1.2 0.7 - 1.6 04/06/2015 [facility] CHEM PANEL Albumin Lvl 4.2 3.5 - 5.0 04/06/2015 [facility] CHEM PANEL Total Protein 7.8 6.4 - 8.4 04/06/2015 [facility] CHEM PANEL BUN 15 7 - 22 04/06/2015 [facility] CHEM PANEL Glucose Lvl 182 70 - 99 04/06/2015 [facility] CHEM PANEL ALT 26 0 - 65 04/06/2015 [facility] CHEM PANEL CO2 26 24 - 32 04/06/2015 [facility] CHEM PANEL eGFR 101 04/06/2015 Result Comment: The eGFR is calculated using the CKD-EPI formula. In most young, healthy individuals the eGFR will be >90 mL/min/1.73m2. The eGFR declines with age. An eGFR of 60-89 may be normal in some populations, particularly the elderly, for whom the CKD-EPI formula has not been extensively validated. Use of the eGFR is not recommended in the following populations:

Individuals with unstable creatinine concentrations, including patients and those with serious co-morbid conditions.

Patients with extremes in muscle mass or diet.

The data above are obtained from the National Kidney Disease Education Program (NKDEP) which additionally recommends that when the eGFR is used in patients with extremes of body mass index for purposes of drug dosing, the eGFR should be multiplied by the estimated BMI. [facility] CHEM PANEL Creatinine Lvl 0.9 0.5 - 1.4 04/06/2015 [facility] CHEM PANEL Sodium Lvl 140 135 - 145 04/06/2015 [facility] CHEM PANEL Chloride Lvl 105 95 - 109 04/06/2015 [facility] CHEM PANEL Calcium Lvl 8.8 8.5 - 10.5 04/06/2015 [facility] CHEM PANEL Potassium Lvl 3.7 3.5 - 5.1 04/06/2015 [facility] HEMATOLOGY D-Dimer <0.22 04/06/2015 [facility] HEMATOLOGY PTT 34.9 22.9 - 35.8 04/06/2015 [facility] HEMATOLOGY PT 13.5 12.0 - 14.7 04/06/2015 [facility] HEMATOLOGY INR 1.03 0.85 - 1.17 04/06/2015 [facility] HEMATOLOGY MPV 7.9 7.4 - 10.4 04/06/2015 [facility] HEMATOLOGY RDW 13.1 11.5 - 14.5 04/06/2015 [facility] HEMATOLOGY Platelet 261 133 - 450 04/06/2015 [facility] HEMATOLOGY MCH 28.0 27.0 - 31.0 04/06/2015 [facility] HEMATOLOGY MCHC 33.6 32.0 - 36.0 04/06/2015 [facility] HEMATOLOGY MCV 83.3 80.0 - 94.0 04/06/2015 [facility] HEMATOLOGY Hgb 14.5 14.0 - 18.0 04/06/2015 [facility] HEMATOLOGY Hct 43.1 42.0 - 54.0 04/06/2015 [facility] HEMATOLOGY WBC 8.7 3.7 - 10.4 04/06/2015 [facility] HEMATOLOGY RBC 5.17 4.70 - 6.10 04/06/2015 [facility] HEMATOLOGY Basophils # 0.0 0.0 - 0.2 04/06/2015 [facility] HEMATOLOGY Eosinophils # 0.1 0.0 - 0.5 04/06/2015 [facility] HEMATOLOGY Monocytes # 0.5 0.0 - 0.8 04/06/2015 [facility] HEMATOLOGY Eosinophils 1.1 0.0 - 4.0 04/06/2015 [facility] HEMATOLOGY Monocytes 5.4 2.0 - 12.0 04/06/2015 [facility] HEMATOLOGY Lymphocytes # 1.7 1.0 - 5.5 04/06/2015 [facility] HEMATOLOGY Segs-Bands # 6.4 1.5 - 8.1 04/06/2015 [facility] HEMATOLOGY Basophils 0.3 0.0 - 1.0 04/06/2015 [facility] HEMATOLOGY Lymphocytes 19.2 20.0 - 40.0 04/06/2015 [facility] HEMATOLOGY Segs 74.0 45.0 - 75.0 04/06/2015 [facility] URINE AND STOOL UA Glucose 500 04/06/2015 [facility] URINE AND STOOL UA Urobilinogen <=1.0 mg/dL 0.1 - 1.0 04/06/2015 [facility] URINE AND STOOL UA Mucus Few /LPF None Seen /LPF 04/06/2015 [facility] URINE AND STOOL UA Nitrite Negative (04/05/15 8:20 PM) Negative 04/06/2015 [facility] URINE AND STOOL UA Spec Grav 1.023 <=1.030 04/06/2015 [facility] URINE AND STOOL UA Blood Negative (04/05/15 8:20 PM) Negative 04/06/2015 [facility] URINE AND STOOL UA Leuk Est Negative (04/05/15 8:20 PM) Negative 04/06/2015 [facility] URINE AND STOOL UA Turbidity Clear (04/05/15 8:20 PM) Clear 04/06/2015 [facility] URINE AND STOOL UA Color Yellow *NA* (04/05/15 8:20 PM) Yellow 04/06/2015 [facility] URINE AND STOOL UA Protein Negative mg/dL Negative mg/dL 04/06/2015 [facility] URINE AND STOOL UA pH 5.0 5.0 - 8.0 04/06/2015 [facility] URINE AND STOOL UA Bili Negative *NA* (04/05/15 8:20 PM) Negative 04/06/2015 [facility] URINE AND STOOL UA Ketones Trace mg/dL Negative mg/dL 04/06/2015 [facility] URINE AND STOOL UA WBC 1 0 - 5 04/06/2015 [facility] URINE AND STOOL UA Bacteria Occasional /HPF None Seen /HPF 04/06/2015 [facility] URINE AND STOOL UA RBC <1 0 - 2 04/06/2015 [facility] URINE AND STOOL UA Sq Epi Occasional /LPF Few /LPF 04/06/2015 [facility] ELECTROLYTES AGAP 9.2 10.0 - 20.0 11/10/2014 [facility] ELECTROLYTES eGFR 106 11/10/2014 <sup>1</sup>Result Comment: The eGFR is calculated using the CKD-EPI formula. In most young, healthy individuals the eGFR will be >90 mL/min/1.73m2. The eGFR declines with age. An eGFR of 60-89 may be normal in some populations, particularly the elderly, for whom the CKD-EPI formula has not been extensively validated. Use of the eGFR is not recommended in the following populations:& lt;br/>
Individuals with unstable creatinine concentrations, including patients and those with serious co-morbid conditions.

Patients with extremes in muscle mass or diet.

The data above are obtained from the National Kidney Disease Education Program (NKDEP) which additionally recommends that when the eGFR is used in patients with extremes of body mass index for purposes of drug dosing, the eGFR should be multiplied by the estimated BMI. [facility] ELECTROLYTES Sodium Lvl 141 135 - 145 11/10/2014 [facility] ELECTROLYTES Creatinine Lvl 0.8 0.5 - 1.4 11/10/2014 [facility] ELECTROLYTES Potassium Lvl 3.2 3.5 - 5.1 11/10/2014 [facility] ELECTROLYTES Chloride Lvl 107 95 - 109 11/10/2014 [facility] ELECTROLYTES Calcium Lvl 9.0 8.5 - 10.5 11/10/2014 [facility] ELECTROLYTES CO2 28 24 - 32 11/10/2014 [facility] ELECTROLYTES BUN 10 7 - 22 11/10/2014 [facility] ELECTROLYTES Glucose Lvl 113 70 - 99 11/10/2014 <sup>2</sup>Interpretive Data: Adult ref erence range values reflect the clinical guidelines
of the [place] [employer]. [facility] HEMATOLOGY Hgb 13.3 14.0 - 18.0 11/10/2014 [facility] HEMATOLOGY MCV 81.1 80.0 - 94.0 11/10/2014 [facility] HEMATOLOGY Hct 37.9 42.0 - 54.0 11/10/2014 [facility] HEMATOLOGY RBC 4.68 4.70 - 6.10 11/10/2014 [facility] HEMATOLOGY WBC 6.7 3.7 - 10.4 11/10/2014 [facility] HEMATOLOGY MCHC 35.0 32.0 - 36.0 11/10/2014 [facility] HEMATOLOGY MCH 28.4 27.0 - 31.0 11/10/2014 [facility] HEMATOLOGY MPV 7.3 7.4 - 10.4 11/10/2014 [facility] HEMATOLOGY Platelet 239 133 - 450 11/10/2014 [facility] HEMATOLOGY RDW 13.1 11.5 - 14.5 11/10/2014 [facility] HEMATOLOGY Lymphocytes # 1.6 1.0 - 5.5 11/10/2014 [facility] HEMATOLOGY Segs 69.8 45.0 - 75.0 11/10/2014 [facility] HEMATOLOGY Monocytes # 0.3 0.0 - 0.8 11/10/2014 [facility] HEMATOLOGY Eosinophils # 0.1 0.0 - 0.5 11/10/2014 [facility] HEMATOLOGY Eosinophils 0.7 0.0 - 4.0 11/10/2014 [facility] HEMATOLOGY Basophils 0.3 0.0 - 1.0 11/10/2014 [facility] HEMATOLOGY Segs-Bands # 4.7 1.5 - 8.1 11/10/2014 [facility] HEMATOLOGY Lymphocytes 24.1 20.0 - 40.0 11/10/2014 [facility] HEMATOLOGY Monocytes 5.1 2.0 - 12.0 11/10/2014 [facility] CARDIAC ENZYMES CK MB <0.5 0.5 - 3.6 04/09/2014 [facility] CARDIAC ENZYMES Total CK 56 12 - 191 04/09/2014 [facility] CARDIAC ENZYMES Troponin-I <0.02 0.00 - 0.40 04/09/2014 [facility] CARDIAC ENZYMES CK MB Index <0.9 0.0 - 2.5 04/09/2014 [facility] CHEM PANEL Glucose Lvl 115 70 - 99 04/09/2014 <sup>2</sup>Interpretive Data: Adult ref erence range values reflect the clinical guidelines
of the [place] [employer]. [facility] CHEM PANEL Chloride Lvl 107 95 - 109 04/09/2014 [facility] CHEM PANEL Sodium Lvl 140 135 - 145 04/09/2014 [facility] CHEM PANEL Potassium Lvl 3.8 3.5 - 5.1 04/09/2014 [facility] CHEM PANEL BUN 8 7 - 22 04/09/2014 [facility] CHEM PANEL CO2 27 24 - 32 04/09/2014 [facility] CHEM PANEL AGAP 9.8 10.0 - 20.0 04/09/2014 [facility] CHEM PANEL eGFR 101 04/09/2014 <sup>1</sup>Result Comment: The eGFR is calculated using the CKD-EPI formula. In most young, healthy individuals the eGFR will be >90 mL/min/1.73m2. The eGFR declines with age. An eGFR of 60-89 may be normal in some populations, particularly the elderly, for whom the CKD-EPI formula has not been extensively validated. Use of the eGFR is not recommended in the following populations:& lt;br/>
Individuals with unstable creatinine concentrations, including patients and those with serious co-morbid conditions.

Patients with extremes in muscle mass or diet.

The data above are obtained from the National Kidney Disease Education Program (NKDEP) which additionally recommends that when the eGFR is used in patients with extremes of body mass index for purposes of drug dosing, the eGFR should be multiplied by the estimated BMI. [facility] CHEM PANEL Creatinine Lvl 0.9 0.5 - 1.4 04/09/2014 [facility] CHEM PANEL Calcium Lvl 9.4 8.5 - 10.5 04/09/2014 [facility] HEMATOLOGY WBC 10.4 3.7 - 10.4 04/09/2014 [facility] HEMATOLOGY MCHC 34.3 32.0 - 36.0 04/09/2014 [facility] HEMATOLOGY MCH 28.0 27.0 - 31.0 04/09/2014 [facility] HEMATOLOGY MCV 81.7 80.0 - 94.0 04/09/2014 [facility] HEMATOLOGY Hct 42.5 42.0 - 54.0 04/09/2014 [facility] HEMATOLOGY MPV 7.7 7.4 - 10.4 04/09/2014 [facility] HEMATOLOGY Hgb 14.6 14.0 - 18.0 04/09/2014 [facility] HEMATOLOGY RBC 5.20 4.70 - 6.10 04/09/2014 [facility] HEMATOLOGY Platelet 253 133 - 450 04/09/2014 [facility] HEMATOLOGY RDW 12.9 11.5 - 14.5 04/09/2014 [facility] HEMATOLOGY Segs 80.3 45.0 - 75.0 04/09/2014 [facility] HEMATOLOGY Monocytes 3.2 2.0 - 12.0 04/09/2014 [facility] HEMATOLOGY Lymphocytes 14.9 20.0 - 40.0 04/09/2014 [facility] HEMATOLOGY Basophils 0.3 0.0 - 1.0 04/09/2014 [facility] HEMATOLOGY Segs-Bands # 8.3 1.5 - 8.1 04/09/2014 [facility] HEMATOLOGY Eosinophils 1.3 0.0 - 4.0 04/09/2014 [facility] HEMATOLOGY Lymphocytes # 1.5 1.0 - 5.5 04/09/2014 [facility] HEMATOLOGY Monocytes # 0.3 0.0 - 0.8 04/09/2014 [facility] HEMATOLOGY Eosinophils # 0.1 0.0 - 0.5 04/09/2014 [facility] HEMATOLOGY Basophils # 0.0 0.0 - 0.2 04/09/2014 [facility] URINE AND STOOL UA Urobilinogen <=1.0 mg/dL 0.1 - 1.0 12/30/2013 [facility] URINE AND STOOL UA Mucus Few /LPF None Seen /LPF 12/30/2013 [facility] URINE AND STOOL UA Leuk Est Negative (12/30/13 1:30 PM) Negative 12/30/2013 [facility] URINE AND STOOL UA Nitrite Negative (12/30/13 1:30 PM) Negative 12/30/2013 [facility] URINE AND STOOL UA Glucose Negative mg/dL Negative mg/dL 12/30/2013 [facility] URINE AND STOOL UA Protein Negative mg/dL Negative mg/dL 12/30/2013 [facility] URINE AND STOOL UA Turbidity Clear (12/30/13 1:30 PM) Clear 12/30/2013 [facility] URINE AND STOOL UA pH 6.0 5.0 - 8.0 12/30/2013 [facility] URINE AND STOOL UA Spec Grav 1.004 <=1.030 12/30/2013 [facility] URINE AND STOOL UA Blood Negative (12/30/13 1:30 PM) Negative 12/30/2013 [facility] URINE AND STOOL UA Ketones Negative mg/dL Negative mg/dL 12/30/2013 [facility] URINE AND STOOL UA Bili Negative *NA* (12/30/13 1:30 PM) Negative 12/30/2013 [facility] URINE AND STOOL UA Sq Epi None Seen 12/30/2013 [facility] URINE AND STOOL UA Color Colorless *NA* (12/30/13 1:30 PM) Yellow 12/30/2013 [facility] CARDIAC ENZYMES Total CK 54 12 - 191 12/30/2013 [facility] CARDIAC ENZYMES Troponin-I <0.02 0.00 - 0.40 12/30/2013 [facility] CARDIAC ENZYMES CK MB <0.5 0.5 - 3.6 12/30/2013 [facility] CARDIAC ENZYMES CK MB Index <0.9 0.0 - 2.5 12/30/2013 [facility] CHEM PANEL eGFR 106 12/30/2013 <sup>1</sup>Result Comment: The eGFR is calculated using the CKD-EPI formula. In most young, healthy individuals the eGFR will be >90 mL/min/1.73m2. The eGFR declines with age. An eGFR of 60-89 may be normal in some populations, particularly the elderly, for whom the CKD-EPI formula has not been extensively validated. Use of the eGFR is not recommended in the following populations:& lt;br/>
Individuals with unstable creatinine concentrations, including patients and those with serious co-morbid conditions.

Patients with extremes in muscle mass or diet.

The data above are obtained from the National Kidney Disease Education Program (NKDEP) which additionally recommends that when the eGFR is used in patients with extremes of body mass index for purposes of drug dosing, the eGFR should be multiplied by the estimated BMI. [facility] CHEM PANEL ALT 25 0 - 65 12/30/2013 [facility] CHEM PANEL AGAP 12.4 10.0 - 20.0 12/30/2013 [facility] CHEM PANEL Bili Total 0.7 0.2 - 1.3 12/30/2013 [facility] CHEM PANEL Alk Phos 64 39 - 136 12/30/2013 [facility] CHEM PANEL B/C Ratio 9 6 - 25 12/30/2013 [facility] CHEM PANEL A/G Ratio 1.4 0.7 - 1.6 12/30/2013 [facility] CHEM PANEL AST 10 0 - 37 12/30/2013 [facility] CHEM PANEL Globulin 3.2 2.0 - 4.0 12/30/2013 [facility] CHEM PANEL Glucose Lvl 118 70 - 99 12/30/2013 <sup>2</sup>Interpretive Data: Adult ref erence range values reflect the clinical guidelines
of the [place] [employer]. [facility] CHEM PANEL Calcium Lvl 9.2 8.5 - 10.5 12/30/2013 [facility] CHEM PANEL Sodium Lvl 143 135 - 145 12/30/2013 [facility] CHEM PANEL Creatinine Lvl 0.8 0.5 - 1.4 12/30/2013 [facility] CHEM PANEL BUN 7 7 - 22 12/30/2013 [facility] CHEM PANEL CO2 28 24 - 32 12/30/2013 [facility] CHEM PANEL Chloride Lvl 106 95 - 109 12/30/2013 [facility] CHEM PANEL Potassium Lvl 3.4 3.5 - 5.1 12/30/2013 [facility] CHEM PANEL Albumin Lvl 4.4 3.5 - 5.0 12/30/2013 [facility] CHEM PANEL Total Protein 7.6 6.4 - 8.4 12/30/2013 [facility] HEMATOLOGY Platelet 234 133 - 450 12/30/2013 [facility] HEMATOLOGY RDW 12.7 11.5 - 14.5 12/30/2013 [facility] HEMATOLOGY MCH 28.4 27.0 - 31.0 12/30/2013 [facility] HEMATOLOGY MPV 7.6 7.4 - 10.4 12/30/2013 [facility] HEMATOLOGY Hgb 14.1 14.0 - 18.0 12/30/2013 [facility] HEMATOLOGY MCV 80.9 80.0 - 94.0 12/30/2013 [facility] HEMATOLOGY Hct 40.2 42.0 - 54.0 12/30/2013 [facility] HEMATOLOGY MCHC 35.1 32.0 - 36.0 12/30/2013 [facility] HEMATOLOGY RBC 4.97 4.70 - 6.10 12/30/2013 [facility] HEMATOLOGY WBC 9.3 3.7 - 10.4 12/30/2013 [facility] HEMATOLOGY Basophils # 0.0 0.0 - 0.2 12/30/2013 [facility] HEMATOLOGY Eosinophils # 0.0 0.0 - 0.5 12/30/2013 [facility] HEMATOLOGY Monocytes # 0.5 0.0 - 0.8 12/30/2013 [facility] HEMATOLOGY Segs 76.0 45.0 - 75.0 12/30/2013 [facility] HEMATOLOGY Lymphocytes # 1.7 1.0 - 5.5 12/30/2013 [facility] HEMATOLOGY Segs-Bands # 7.1 1.5 - 8.1 12/30/2013 [facility] HEMATOLOGY Basophils 0.2 0.0 - 1.0 12/30/2013 [facility] HEMATOLOGY Eosinophils 0.4 0.0 - 4.0 12/30/2013 [facility] HEMATOLOGY Monocytes 5.4 2.0 - 12.0 12/30/2013 [facility] HEMATOLOGY Lymphocytes 18.0 20.0 - 40.0 12/30/2013 [facility] Pathology Reports No Data Provided for This Section Diagnostic Reports Report Value Date Source Chest 1view DX Frontal chest r adiograph INDICATION: Pneumonia COMPARISON: 01/19/2020 FINDINGS: Heart/mediastinum: normal size no masses LUNGS: no infiltrates or effusion Support lines/tubes: none Bone structures: no acute changes Upper Abdomen: unremarkable Impression: No acute changes. 02/29/2020 [facility] Abdomen acute series w chest 1 view DX EXAM: Acute abdominal series x-ray. CLINICAL HX: - Chest pain/Left abdominal pain (Chronic). Age: 54 years. Gender: Male. TECHNIQUE: As above. Facility: [facility]. COMPARISON: Chest x-ray: Yesterday. FINDINGS: Support apparatus: None. Cardiac silhouette: Unremarkable. Mediastinum: -- Lexie: Unremarkable. -- Other: None. Lungs: -- Consolidation: Negative.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 Rate 98 01/14/2020 [facility] Respitory Rate 18 01/14/2020 [facility] Temperature Oral (F) 99.4 F 01/14/2020 [facility] Temperature Oral (F) 98.9 F 01/09/2020 [facility] Respitory Rate 16 01/09/2020 [facility] Systolic (mm Hg) 121 01/09/2020 [facility] Diastolic (mm Hg) 82 01/09/2020 [facility] Heart Rate 77 01/09/2020 [facility] Temperature Oral (F) 98.9 F 01/09/2020 [facility] Heart Rate 80 01/09/2020 [facility] Respitory Rate 16 01/09/2020 [facility] Systolic (mm Hg) 117 01/09/2020 [facility] Diastolic (mm Hg) 68 01/09/2020 [facility] Temperature Oral (F) 99.1 F 01/09/2020 [facility] Heart Rate 71 01/09/2020 [facility] Respitory Rate 16 01/09/2020 [facility] Systolic (mm Hg) 115 01/09/2020 [facility] Diastolic (mm Hg) 79 01/09/2020 [facility] Height 182.88 cm 01/08/2020 [facility] BMI Calculated 28.27 01/08/2020 [facility] Weight 94.545 01/08/2020 [facility] Respitory Rate 18 04/05/2018 [facility] Systolic (mm Hg) 111 04/05/2018 [facility] Diastolic (mm Hg) 67 04/05/2018 [facility] Respitory Rate 16 04/04/2018 [facility] Systolic (mm Hg) 103 04/04/2018 [facility] Diastolic (mm Hg) 59 04/04/2018 [facility] Systolic (mm Hg) 100 04/04/2018 [facility] Diastolic (mm Hg) 59 04/04/2018 [facility] Respitory Rate 17 04/04/2018 [facility] Heart Rate 66 04/04/2018 [facility] Weight 90.909 04/04/2018 [facility] Heart Rate 58 04/04/2018 [facility] Temperature Oral (F) 97.4 F 04/04/2018 [facility] Systolic (mm Hg) 130 02/09/2018 [facility] Diastolic (mm Hg) 89 02/09/2018 [facility] Respitory Rate 17 02/09/2018 [facility] Heart Rate 87 02/09/2018 [facility] Temperature Oral (F) 98.2 F 02/09/2018 [facility] [facility] Sy[facility] (mm Hg) 142 02/09/2018 [facility] Diastolic (mm Hg) 77 02/09/2018 [facility] Respitory Rate 16 02/09/2018 [facility] Heart Rate 90 02/09/2018 [facility] Weight 100 02/09/2018 [facility] BMI Calculated 29.9 02/09/2018 [facility] Height 182.88 cm 02/09/2018 [facility] Temperature Oral (F) 98.9 F 02/09/2018 [facility] Respitory Rate 18 02/09/2018 [facility] Heart Rate 88 02/09/2018 [facility] Systolic (mm Hg) 138 02/09/2018 [facility] Diastolic (mm Hg) 83 02/09/2018 [facility] Weight 90.909 02/01/2018 [facility] Temperature Oral (F) 97.7 F 02/01/2018 [facility] Systolic (mm Hg) 153 02/01/2018 [facility] Diastolic (mm Hg) 94 02/01/2018 [facility] Respitory Rate 16 02/01/2018 [facility] Heart Rate 80 02/01/2018 [facility] Respitory Rate 17 12/03/2017 [facility] Heart Rate 79 12/03/2017 [facility] Systolic (mm Hg) 135 12/03/2017 [facility] Diastolic (mm Hg) 84 12/03/2017 [facility] BMI Calculated 29.9 12/02/2017 [facility] Weight 100 12/02/2017 [facility] Height 182.88 cm 12/02/2017 [facility] Temperature Oral (F) 98.1 F 12/02/2017 [facility] Heart Rate 82 12/02/2017 [facility] Respitory Rate 18 12/02/2017 [facility] Systolic (mm Hg) 140 12/02/2017 [facility] Diastolic (mm Hg) 88 12/02/2017 [facility] Weight 87.273 09/13/2017 [facility] BMI Calculated 26.09 09/13/2017 [facility] Height 182.88 cm 09/13/2017 [facility] Temperature Oral (F) 97.9 F 09/13/2017 [facility] Respitory Rate 18 09/13/2017 [facility] Heart Rate 66 09/13/2017 [facility] Systolic (mm Hg) 165 09/13/2017 [facility] Diastolic (mm Hg) 84 09/13/2017 [facility] Weight 101.818 09/12/2017 [facility] BMI Calculated 30.44 09/12/2017 [facility] Height 182.88 cm 09/12/2017 [facility] Temperature Oral (F) 98.9 F 09/12/2017 [facility] Heart Rate 70 09/12/2017 [facility] Respitory Rate 18 09/12/2017 [facility] Systolic (mm Hg) 149 09/12/2017 [facility] Diastolic (mm Hg) 100 09/12/2017 [facility] Height 170.18 cm 09/11/2017 [facility] Temperature Oral (F) 98.4 F 09/11/2017 [facility] BMI Calculated 35 09/11/2017 [facility] Systolic (mm Hg) 157 09/11/2017 [facility] Diastolic (mm Hg) 92 09/11/2017 [facility] Heart Rate 71 09/11/2017 [facility] Respitory Rate 16 09/11/2017 [facility] Weight 101.364 09/11/2017 [facility] Weight 102.5 2017 [facility] BMI Calculated 30.65 2017 [facility] Temperature Oral (F) 98.3 F 2017 [facility] Height 182.88 cm 2017 [facility] Respitory Rate 18 2017 [facility] Heart Rate 72 2017 [facility] Systolic (mm Hg) 141 2017 [facility] Diastolic (mm Hg) 91 2017 [facility] Temperature Oral (F) 98.6 F 07/18/2017 [facility] Respitory Rate 18 07/18/2017 [facility] Heart Rate 84 07/18/2017 [facility] Systolic (mm Hg) 125 07/18/2017 [facility] Diastolic (mm Hg) 87 07/18/2017 [facility] Respitory Rate 20 07/18/2017 [facility] Heart Rate 88 07/18/2017 [facility] Systolic (mm Hg) 140 07/18/2017 [facility] Diastolic (mm Hg) 83 07/18/2017 [facility] Respitory Rate 18 07/18/2017 [facility] Heart Rate 82 07/18/2017 [facility] Systolic (mm Hg) 136 07/18/2017 [facility] Diastolic (mm Hg) 88 07/18/2017 [facility] Weight 85.455 07/18/2017 [facility] BMI Calculated 25.55 07/18/2017 [facility] Height 182.88 cm 07/18/2017 [facility] Temperature Oral (F) 99.3 F 07/18/2017 [facility] Heart Rate 80 03/27/2017 [facility] Respitory Rate 18 03/27/2017 [facility] Systolic (mm Hg) 129 03/27/2017 [facility] Diastolic (mm Hg) 98 03/27/2017 [facility] Heart Rate 80 03/27/2017 [facility] Respitory Rate 18 03/27/2017 [facility] Systolic (mm Hg) 147 03/27/2017 [facility] Diastolic (mm Hg) 87 03/27/2017 [facility] Temperature Oral (F) 98.6 F 03/27/2017 [facility] Respitory Rate 18 03/27/2017 [facility] Heart Rate 81 03/27/2017 [facility] BMI Calculated 34.53 03/27/2017 [facility] Weight 100 03/27/2017 [facility] Height 170.18 cm 03/27/2017 [facility] Systolic (mm Hg) 130 03/27/2017 [facility] Diastolic (mm Hg) 92 03/27/2017 [facility] Heart Rate 86 01/13/2017 [facility] Systolic (mm Hg) 123 01/13/2017 [facility] Diastolic (mm Hg) 79 01/13/2017 [facility] Respitory Rate 17 01/13/2017 [facility] Respitory Rate 19 01/13/2017 [facility] Systolic (mm Hg) 143 01/13/2017 [facility] Diastolic (mm Hg) 92 01/13/2017 [facility] Heart Rate 90 01/13/2017 [facility] Weight 95.455 01/13/2017 [facility] BMI Calculated 28.54 01/13/2017 [facility] Height 182.88 cm 01/13/2017 [facility] Temperature Oral (F) 98.7 F 01/13/2017 [facility] Heart Rate 99 01/13/2017 [facility] Respitory Rate 22 01/13/2017 [facility] Systolic (mm Hg) 142 01/13/2017 [facility] Diastolic (mm Hg) 85 01/13/2017 [facility] Systolic (mm Hg) 150 11/28/2016 [facility] Diastolic (mm Hg) 80 11/28/2016 [facility] Temperature Oral (F) 98.3 F 11/28/2016 [facility] Heart Rate 69 11/28/2016 [facility] Respitory Rate 15 11/28/2016 [facility] Weight 95.455 11/28/2016 [facility] BMI Calculated 28.54 11/28/2016 [facility] Height 182.88 cm 11/28/2016 [facility] Systolic (mm Hg) 163 11/28/2016 [facility] Diastolic (mm Hg) 84 11/28/2016 [facility] Heart Rate 78 11/28/2016 [facility] Respitory Rate 18 11/28/2016 [facility] Temperature Oral (F) 98.2 F 11/28/2016 [facility] Heart Rate 75 09/17/2016 [facility] Respitory Rate 16 09/17/2016 [facility] Temperature Oral (F) 98.5 F 09/17/2016 [facility] Systolic (mm Hg) 148 09/17/2016 [facility] Diastolic (mm Hg) 82 09/17/2016 [facility] Weight 94.545 09/17/2016 [facility] Temperature Oral (F) 98.3 F 09/17/2016 [facility] Respitory Rate 18 09/17/2016 [facility] Heart Rate 76 09/17/2016 [facility] Systolic (mm Hg) 156 09/17/2016 [facility] Diastolic (mm Hg) 88 09/17/2016 [facility] Systolic (mm Hg) 138 08/04/2016 [facility] Diastolic (mm Hg) 82 08/04/2016 [facility] Respitory Rate 18 08/04/2016 [facility] Heart Rate 76 08/04/2016 [facility] Temperature Oral (F) 98.2 F 08/04/2016 [facility] Temperature Oral (F) 99.1 F 08/04/2016 [facility] BMI Calculated 29.6 08/04/2016 [facility] Height 182.88 cm 08/04/2016 [facility] Weight 99 1 10/05/2015 [facility] Systolic (mm Hg) 142 08/04/2016 [facility] Diastolic (mm Hg) 87 08/04/2016 [facility] Respitory Rate 16 08/04/2016 [facility] Heart Rate 74 08/04/2016 [facility] Heart Rate 75 07/10/2016 [facility] Respitory Rate 18 07/10/2016 [facility] Temperature Oral (F) 98.8 F 07/10/2016 [facility] Systolic (mm Hg) 143 07/10/2016 [facility] Diastolic (mm Hg) 95 07/10/2016 [facility] Systolic (mm Hg) 145 03/06/2016 [facility] Diastolic (mm Hg) 54 03/06/2016 [facility] Heart Rate 95 03/06/2016 [facility] Temperature Oral (F) 98.2 F 03/06/2016 [facility] Respitory Rate 20 03/06/2016 [facility] Weight 82.3 03/06/2016 [facility] Temperature Oral (F) 98.2 F 03/06/2016 [facility] Respitory Rate 16 03/06/2016 [facility] Heart Rate 90 03/06/2016 [facility] Systolic (mm Hg) 124 03/06/2016 [facility] Diastolic (mm Hg) 83 03/06/2016 [facility] Heart Rate 101 11/13/2015 [facility] Respitory Rate 16 11/13/2015 [facility] Temperature Oral (F) 99.7 F 11/13/2015 [facility] Systolic (mm Hg) 127 11/13/2015 [facility] Diastolic (mm Hg) 89 11/13/2015 [facility] Height 182.88 cm 11/13/2015 [facility] Weight 93.182 11/13/2015 [facility] BMI Calculated 27.86 11/13/2015 [facility] Weight 98.182 11/02/2015 [facility] Respitory Rate 14 11/02/2015 [facility] Temperature Oral (F) 98.6 F 11/02/2015 [facility] Systolic (mm Hg) 159 11/02/2015 [facility] Diastolic (mm Hg) 89 11/02/2015 [facility] Heart Rate 99 11/02/2015 [facility] BMI Calculated 29.36 11/02/2015 [facility] Height 182.88 cm 11/02/2015 [facility] Systolic (mm Hg) 130 09/12/2015 [facility] Diastolic (mm Hg) 79 09/12/2015 [facility] Respitory Rate 17 09/12/2015 [facility] Systolic (mm Hg) 118 09/12/2015 [facility] Diastolic (mm Hg) 76 09/12/2015 [facility] Respitory Rate 16 09/12/2015 [facility] Systolic (mm Hg) 151 09/12/2015 [facility] Diastolic (mm Hg) 83 09/12/2015 [facility] BMI Calculated 27.86 09/12/2015 [facility] Weight 93.182 09/12/2015 [facility] Height 182.88 cm 09/12/2015 [facility] Temperature Oral (F) 98.1 F 09/12/2015 [facility] Respitory Rate 18 09/12/2015 [facility] Heart Rate 112 09/12/2015 [facility] Height 175.26 cm 08/03/2015 [facility] BMI Calculated 28.12 08/03/2015 [facility] Weight 86.364 08/03/2015 [facility] Heart Rate 85 08/03/2015 [facility] Systolic (mm Hg) 157 08/03/2015 [facility] Diastolic (mm Hg) 95 08/03/2015 [facility] Respitory Rate 19 08/03/2015 [facility] Temperature Oral (F) 98.1 F 08/03/2015 [facility] Heart Rate 88 06/06/2015 [facility] Systolic (mm Hg) 131 06/06/2015 [facility] Diastolic (mm Hg) 84 06/06/2015 [facility] Respitory Rate 17 06/06/2015 [facility] Temperature Oral (F) 98.8 F 06/06/2015 [facility] Weight 93.182 06/06/2015 [facility] BMI Calculated 27.86 06/06/2015 [facility] Heart Rate 106 06/06/2015 [facility] Systolic (mm Hg) 136 06/06/2015 [facility] Diastolic (mm Hg) 88 06/06/2015 [facility] Height 182.88 cm 06/06/2015 [facility] Respitory Rate 16 06/06/2015 [facility] Temperature Oral (F) 99.6 F 06/06/2015 [facility] Temperature Oral (F) 98.3 F 04/24/2015 [facility] Respitory Rate 18 04/24/2015 [facility] Systolic (mm Hg) 129 04/24/2015 [facility] Diastolic (mm Hg) 80 04/24/2015 [facility] Heart Rate 84 04/24/2015 [facility] Heart Rate 80 04/24/2015 [facility] Respitory Rate 18 04/24/2015 [facility] BMI Calculated 27.86 04/24/2015 [facility] Weight 93.182 04/24/2015 [facility] Temperature Oral (F) 98.4 F 04/24/2015 [facility] Height 182.88 cm 04/24/2015 [facility] Systolic (mm Hg) 136 04/24/2015 [facility] Diastolic (mm Hg) 85 04/24/2015 [facility] Temperature Oral (F) 98.4 F 04/06/2015 [facility] Heart Rate 64 04/06/2015 [facility] Respitory Rate 16 04/06/2015 [facility] Systolic (mm Hg) 122 04/06/2015 [facility] Diastolic (mm Hg) 81 04/06/2015 [facility] Heart Rate 74 04/06/2015 [facility] Respitory Rate 18 04/06/2015 [facility] Systolic (mm Hg) 142 04/06/2015 [facility] Diastolic (mm Hg) 84 04/06/2015 [facility] Temperature Oral (F) 98.1 F 04/06/2015 [facility] Temperature Oral (F) 98.2 F 04/06/2015 [facility] Weight 93.182 04/06/2015 [facility] BMI Calculated 27.86 04/06/2015 [facility] Height 182.88 cm 04/06/2015 [facility] Respitory Rate 18 04/06/2015 [facility] Systolic (mm Hg) 136 04/06/2015 [facility] Diastolic (mm Hg) 85 04/06/2015 [facility] Heart Rate 82 04/06/2015 [facility] BMI Calculated 26.5 01/05/2015 [facility] Height 182.88 cm 01/05/2015 [facility] Weight 88.636 01/05/2015 [facility] Temperature Oral (F) 98.4 F 01/05/2015 [facility] Systolic (mm Hg) 143 01/05/2015 [facility] Diastolic (mm Hg) 86 01/05/2015 [facility] Heart Rate 82 01/05/2015 [facility] Respitory Rate 18 01/05/2015 [facility] Temperature Oral (F) 98.2 F 11/10/2014 [facility] Heart Rate 63 11/10/2014 [facility] Systolic (mm Hg) 157 11/10/2014 [facility] Diastolic (mm Hg) 95 11/10/2014 [facility] Respitory Rate 18 11/10/2014 [facility] Weight 100 11/10/2014 [facility] Height 175.26 cm 11/10/2014 [facility] BMI Calculated 32.56 11/10/2014 [facility] Temperature Oral (F) 97.6 F 11/10/2014 [facility] Heart Rate 66 11/10/2014 [facility] Systolic (mm Hg) 142 11/10/2014 [facility] Diastolic (mm Hg) 98 11/10/2014 [facility] Respitory Rate 16 11/10/2014 [facility] Height 182.88 cm 06/29/2014 [facility] BMI Calculated 29.9 06/29/2014 [facility] Weight 100 06/29/2014 [facility] Respitory Rate 18 06/29/2014 [facility] Temperature Oral (F) 98.2 F 06/29/2014 [facility] Diastolic (mm Hg) 93 06/29/2014 [facility] Systolic (mm Hg) 151 06/29/2014 [facility] Heart Rate 75 06/29/2014 [facility] Heart Rate 87 04/10/2014 [facility] Temperature Oral (F) 98.5 F 04/10/2014 [facility] Respitory Rate 16 04/10/2014 [facility] Systolic (mm Hg) 139 04/10/2014 [facility] Diastolic (mm Hg) 92 04/10/2014 [facility] Height 182.88 cm 04/09/2014 [facility] BMI Calculated 28.81 04/09/2014 [facility] Weight 96.364 04/09/2014 [facility] Respitory Rate 16 04/09/2014 [facility] Temperature Oral (F) 98.7 F 04/09/2014 [facility] Systolic (mm Hg) 142 04/09/2014 [facility] Diastolic (mm Hg) 100 04/09/2014 [facility] Heart Rate 90 04/09/2014 [facility] Weight 96.364 03/15/2014 [facility] Height 182.88 cm 03/15/2014 [facility] BMI Calculated 28.81 03/15/2014 [facility] Temperature Oral (F) 99 F 03/15/2014 [facility] Respitory Rate 16 03/15/2014 [facility] Heart Rate 83 03/15/2014 [facility] Diastolic (mm Hg) 103 03/15/2014 [facility] Systolic (mm Hg) 145 03/15/2014 [facility] Systolic (mm Hg) 138 12/30/2013 [facility] Diastolic (mm Hg) 87 12/30/2013 [facility] Respitory Rate 16 12/30/2013 [facility] Heart Rate 80 12/30/2013 [facility] Temperature Oral (F) 98.2 F 12/30/2013 [facility] BMI Calculated 29.9 12/30/2013 [facility] Weight 100 12/30/2013 [facility] Height 182.88 cm 12/30/2013 [facility] Heart Rate 89 12/30/2013 [facility] Respitory Rate 16 12/30/2013 [facility] Systolic (mm Hg) 135 12/30/2013 [facility] Diastolic (mm Hg) 98 12/30/2013 [facility] Systolic (mm Hg) 126 12/09/2013 [facility] Diastolic (mm Hg) 85 12/09/2013 [facility] Temperature Oral (F) 98.6 F 12/09/2013 [facility] Heart Rate 79 12/09/2013 [facility] Respitory Rate 18 12/09/2013 [facility] Diastolic (mm Hg) 82 12/09/2013 [facility] Systolic (mm Hg) 140 12/09/2013 [facility] Respitory Rate 20 12/09/2013 [facility] Temperature Oral (F) 98.2 F 12/09/2013 [facility] Heart Rate 90 12/09/2013 [facility] Weight 102.273 12/09/2013 [facility] BMI Calculated 32.35 12/09/2013 [facility] Height 177.8 cm 12/09/2013 [facility] Temperature Oral (F) 98.2 F 12/09/2013 [facility] Systolic (mm Hg) 149 12/09/2013 [facility] Diastolic (mm Hg) 100 12/09/2013 [facility] Respitory Rate 18 12/09/2013 [facility] Heart Rate 102 12/09/2013 [facility] Encounters Location Location Details Encounter Type Encounter Number Reason For Visit Attending Provider ADM Date DC Date Status Source [facility] [id number] Michael Pope 12/09/2013 12/09/2013 [facility] [id number] Fab Goldberg 12/30/2013 [facility] [id number] Valeriano Nelson 03/15/2014 03/16/2014 [facility] [id number] Maty Covarrubias 04/09/2014 04/10/2014 [facility] [id number] Beni Kelley 06/29/2014 06/30/2014 [facility] [id number] Edu Ali 0 11/10/2014 11/10/2014 [facility] [id number] Theresa Ramirez 01/05/2015 01/05/2015 [facility] [id number] Mitzi Yu 04/06/2015 04/06/2015 [facility] [id number] Min Garcia 0 04/24/2015 04/24/2015 [facility] [id number] 22 Yobani Batres 06/06/2015 06/06/2015 [facility] [id number] 23 Catalino Kelley 08/03/2015 08/03/2015 [facility] [id number] Min Garcia 0 09/12/2015 09/13/2015 [facility] [id number] Min Garcia 0 11/02/2015 11/03/2015 [facility] [id number] Maki Roach 11/13/2015 11/14/2015 [facility] [id number] James Tayick 03/06/2016 03/06/2016 [facility] [id number] Edu Hernandes 07/10/2016 07/11/2016 [facility] [id number] Kobi Lazo 08/04/2016 08/04/2016 [facility] [id number] Rauvan Averick 09/17/2016 09/17/2016 [facility] [id number] [facility] 11/28/2016 11/28/2016 [facility] [id number] Maty Marci 01/13/2017 01/14/2017 [facility] [id number] Beck Goss 03/27/2017 03/27/2017 [facility] [id number] [place] 07/18/2017 07/18/2017 [facility] [id number] Dacia Bragg 2017 09/11/2017 [facility] [id number] Karan Knight 09/11/2017 09/11/2017 [facility] [id number] Maty Covarrubias 09/12/2017 09/12/2017 [facility] [id number] Yuri Simons 09/13/2017 09/13/2017 [facility] [id number] Vignesh Floyd 12/02/2017 12/03/2017 [facility] [id number] Beni Kelley 02/01/2018 02/01/2018 [facility] [id number] Beck Wolfgang 02/09/2018 02/09/2018 [facility] [id number] Vignesh Floyd 04/04/2018 04/05/2018 [facility] [id number] Rafal Lu 01/08/2020 01/09/2020 [facility] [id number] Catalino Kelley 01/14/2020 01/14/2020 [facility] [facility] [id number] Edu Hernandes 01/18/2020 01/18/2020 [facility] [id number] Beni Kelley 01/20/2020 01/20/2020 [facility] [id number] Edu Ali 02/29/2020 02/29/2020 [facility] Procedures No Data Provided for This Section Assessment and Plan No Data Provided for This Section Plan of Care No Data Provided for This Section Social History Social History Date Source Social History TypeResponse Alcohol Past, Type Beer. Substance Abuse Use: Past. Type: Marijuana. Smoking Status Former smoker; Exposure to Tobacco Smoke None; Cigarette Smoking Last 365 Days Yes; Reg Smoking Cessation Counseling No entered on: 02/29/20 02/09/2018 [facility] Social History TypeResponse Substance Abuse Use: Past. Type: Marijuana. Alcohol Past, Type Beer. Smoking Status Current every day smoker; Type: Cigarettes; Ready to change: No; Concerns about tobacco use in household: No; Lives with someone who smokes; Cigarette Smoking Last 365 Days Yes; Reg Smoking Cessation Counseling No; Stopped at age: 48; entered on: 12/02/17 04/09/2014 [facility] Family History No Data Provided for This Section Advance Directives No Data Provided for This Section Functional Status No Data Provided for This Section
--- OUTSIDE RECORDS SUMMARY | 2020-05-08 16:50 | XMS REPORT | Continuity of Care Document ---
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 CDT Louann Khan Metformin hydrochloride 500 MG Oral Tablet 2017-01-14 00:09:00 Yes 500 mg = 1 tab, PO, BID-Meals, # 30 tab, 0 Refill(s) Louann Khan Aspirin 2017-01-13 22:51:00 No 325 mg, Route: PO, Drug form: TAB, ONCE, Dosing Weight 95.455, kg, Priority: STAT, Start date: 01/13/17 17:51:00 CDT, Stop date: 01/13/17 17:51:00 CDT Ne kiya Khan Saline Flush 0.9% 2017-01-13 22:51:00 No 10 mL, Route: IVP, Drug Form: INJ, Dosing Weight 95.455, kg, PRN, PRN Line Flush, Start date: 01/13/17 17:51:00 CDT, Duration: 30 day, Stop date: 02/12/17 17:50:00 CDT Louann Khan tramadol hydrochloride 50 MG Oral Tablet 2016-11-28 03:59:00 Yes 50 mg = 1 tab, PO, Q8H, PRN Pain, X 5 day, # 15 tab, 0 Refill(s) Louann Khan Acetaminophen 300 MG / Codeine Phosphate 30 MG Oral Tablet [Tylenol with Codeine #3] 2016-11-28 03:26:00 No 1 tab, Route: PO, Drug Form: TAB, Dosing Weight 95.455, kg, ONCE, STAT, Start date: 11/27/16 22:26:00 CDT, Stop date: 11/27/16 22:26:00 CDT [facility] Bill Tylenol 2016-09-17 22:36:00 No 650 mg, Route: PO, Drug form: TAB, ONCE, Dosing Weight 94.545, kg, Priority: STAT, 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, 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 Ne kiya [place] Cyclobenzaprine hydrochloride 10 MG Oral Tablet [Flexeril] 2016-07-11 01:17:00 Yes 10 mg = 1 tab, PO, TID, PRN for spasm, X 5 day, # 15 tab, 0 [facility] oral tablet 2016-07-11 01:17:00 Yes 40 mg = 2 tab, PO, Daily, X 5 day, # 10 tab, 0 Refill(s) [facility] Bill Flexeril 2016-07-11 00:35:00 No 10 mg, Route: PO, ONCE, Dosing Weight 82.3, kg, Priority: STAT, 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: 07/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, 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: 07/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 [facility] Pred[facility]one 2016-07-11 00:35:00 No 60 mg, Route: PO, Drug form: TAB, ONCE, Dosing Weight 82.3, kg, Priority: STAT, Start date: 07/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, 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: 07/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 Donn pastor Bill Pepcid 2016-03-06 05:52:00 No Notes: (Same as: Erasto) [facility] dexamethasone 4 mg oral tablet 2016-03-06 05:50:00 Yes 8 mg = 2 tab, PO, Daily, X 4 day, # 8 tab, 0 Refill(s) [facility] Dexamethasone 2016-03-06 05:45:00 No Notes: Concentration: 4mg/ml [facility] Sulfamethoxazole 800 MG / Trimethoprim 160 MG Oral Tablet [B actrim] 2015-11-03 01:06:00 Yes 1 tab, PO, BID, # 20 tab, 0 Refill(s) [facility] benzonatate 100 MG Oral Capsule [Klaudiasaljovana Escudero] 2015-09-12 23:12:00 Yes 100 mg = 1 cap, PO, TID, X 7 day, # 21 cap, 0 R efill(s) [facility] Acetaminophen 2015-09-12 23:10:00 No 975 mg, Route: PO, Drug form: TAB, ONCE, Dosing Weight 93.182, kg, Priority: STAT, Start date: 09/12/15 17:10:00, Stop date: 09/12/15 17:10:00 [facility] amoxicillin 875 mg oral tablet 2015-06-06 21:01:00 Yes 875 mg = 1 tab, PO, BID, X 10 day, # 20 tab, 0 Refill(s) [facility] Naproxen 500 MG Oral Tablet [Naprosyn] 2015-06-06 21:01:00 Yes 500 mg = 1 tab, PO, BID, PRN Pain, # 30 tab, 0 Refill(s) [facility] Ketorolac 2015-06-06 20:49:00 No 30 mg, Route: IM, ONCE, Dosing Weight 93.182, kg, Priority: STAT, Start date: 06/06/15 15:49:00, Stop date: 06/06/15 15:49:00 [facility] Acetaminophen 2015-06-06 20:03:00 No Notes: Do not exceed 4 gm/day. (Same as: Tylenol) [facility] cetirizine (ZYRTEC) 10 mg tablet 2015-05-06 00:00:00 Yes Environmental allergies 10mg QD Take 1 tablet by mouth daily. [facility] azelastine (OPTIVAR) 0.05 % ophthalmic solution 2015-05-06 0 0:00:00 Yes Environmental allergies 1[drp] Q.5D Instill 1 Drop in each eye 2 t imes daily. [facility] cyclobenzaprine (FLEXERIL) 10 mg tablet 2015-05-06 00:00:00 Yes Neck pain 10mg Take 1 tablet by mouth 2 times daily as needed for Mus shital Spasms. [facility] traMADol (ULTRAM) 50 mg tablet 2015-05-06 00:00:00 Yes Cervical neck pain with evidence of disc disease 50mg Take 1 tab let by mouth every 8 hours as needed for Pain (breakthrough pain). [facility] ibuprofen 600 mg oral tablet 2015-04-24 21:38:00 Yes Special Instructions: take with food [facility] Ibuprofen 2015-04-24 21:36:00 No Notes: (Same as: Motrin) "Do Not Crush" Give with food. [facility] Ibuprofen 2015-04-24 21:35:00 No 600 mg, Route: PO, ONCE, Dosing Weight 93.182, kg, Priority: STAT, Start date: 04/24/15 16:35:00, Stop date: 04/24/15 16:35:00 [facility] Methocarbamol 750 MG Oral Tablet [Robaxin] 2015-04-06 05:46:00 Yes 1,500 mg = 2 tab, PO, TID, X 5 day, # 30 tab, 0 Refill(s) [facility] Acetaminophen 300 MG / Codeine Phosphate 30 MG Oral Tablet [Tylenol with Codeine #3] 2015-04-06 05:46:00 No 2 tab, PO, Q6H, PRN Pain, X 3 day, # 20 tab, 0 Refill(s) [facility] Morphine 2015-04-06 04:14:00 No 4 mg, Route: IVP, Drug form: INJ, ONCE, Dosing Weight 93.182, kg, Priority: STAT, Start date: 04/05/15 23:14:00, Stop date: 04/05/15 23:14:00 [facility] Morphine 2015-04-06 01:24:00 No 4 mg, Route: IVP, Drug form: INJ, ONCE, Dosing Weight 93.182, kg, Priority: STAT, Start date: 04/05/15 20:24:00, Stop date: 04/05/15 20:24:00 [facility] Aspirin 2015-04-06 01:23:00 No 325 mg, Route: PO, Drug form: TAB, ONCE, Dosing Weight 93.182, kg, Priority: STAT, Start date: 04/05/15 20:23:00, Stop date: 04/05/15 20:23:00 [facility] Valium 2015-04-06 01:23:00 No 5 mg, Route: PO, ONCE, Dosing Weight 93.182, kg, Priority: STAT, Start date: 04/05/15 20:23:00, Stop date: 04/05/15 20:23:00 [facility] Saline Flush 0.9% 2015-04-06 00:53:00 No Notes: (Same as: BD Posiflush) [facility] mupirocin calcium (BACTROBAN) 2 % topical cream 2015-03-18 0 0:00:00 Yes Insect bite Apply to affected area 3 times daily. [facility] piroxicam (FELDENE) 20 mg capsule 2014-12-23 00:00:00 Ye s Neck pain 20mg QD Take 1 capsule by mouth daily ,please take this medication with food.. [facility] gabapentin (NEURONTIN) 300 mg capsule 2014-12-23 00:00:00 Yes Neuropathy Take one tablet in the morni ng, one tablet in the afternoon, 2 tablets at night. [facility] busPIRone (BUSPAR) 7.5 mg tablet 2014-12-23 00:00:00 Yes Anxiety state, unspecified 7.5mg Q.5D Take 1 tablet by mouth 2 times daily For anxie ty. [facility] Acetaminophen 2014-11-10 19:18:00 No Notes: Do not exceed 4 gm/day. (Same as: Tylenol) Louann Bill Cyclobenzaprine hydrochloride 10 MG Oral Tablet [Flexeril] 2013-12-30 21:14:00 Yes 10 mg, PO, TID, Muscle Spasm, # 30 tab, 0 Refill(s) Louann Bill {21 (Methylprednisolone 4 MG Oral Tablet [Medrol]) } Pack [M edrol Dosepak] 2013-12-30 21:14:00 Yes Special Instructions: Take with or without food Louann Khan naproxen 500 mg oral tablet 2013-12-30 21:14:00 Yes 500 mg = 1 tab, PO, BID, for pain, # 20 tab, 0 Refill(s) [facility] tramad[facility]ide 50 MG Oral Tablet [Ultram] 2013-12-30 21:14:00 Yes 50 mg = 1 tab, PO, Q6H, pain, # 20 tab, 0 Refil l(s) Louann Bill Ondansetron 2013-12-30 17:13:00 No Notes: ( Same as: Zofran) Louann [place] Morphine 2013-12-30 17:13:00 No Not es: (Same as:MORPhine Sulfate) Louann [place] Saline Flush 0.9% 2013-12-30 17:13:00 No Notes: (Same as: BD Posiflush) Louann Khan Sodium Chloride 0.154 MEQ/ML Injectable Solution 2013-12-30 17:1 3:00 No 1,000 mL, 1,000 ml/hr, Infus e Over: 1 hr, Route: IV, 1,000, Drug form: INJ, ONCE, Priority: STAT, Dosing Weight 100 kg, Start date: 12/30/13 12:13:00, Duration: 1 doses or times, Stop date: 12/30/13 12:13:00 Louann Khan 12 HR Orphenadrine Citrate 100 MG Extended Release Tablet 2013-12-09 08:53:00 Yes 100 mg = 1 tab, PO, BID, # 28 ta b, 0 Refill(s) [facility] Naproxen 500 MG Oral Tablet [Naprosyn] 2013-12-09 08:53:00 Yes 500 mg = 1 tab, PO, BID, Pain, # 30 tab, 0 Refill(s) [facility] predniSONE 10 mg oral tablet 2013-12-09 08:53:00 Yes 10 mg = 1 tab, PO, Daily, # 7 tab, 0 Refill(s) [facility] Prednisone 2013-12-09 08:02:00 No 60 mg, Route: PO, Drug form: TAB, ONCE, Dosing Weight 102.273, kg, Priority: STAT, Start date: 12/09/13 3:02:00, Stop date: 12/09/13 3:02:00 [facility] Orphenadrine 2013-12-09 08:02:00 No 60 mg, Route: IM, ONCE, Dosing Weight 102.273, kg, Priority: STAT, Start date: 12/09/13 3:02:00, Stop date: 12/09/13 3:02:00 [facility] Ketorolac 2013-12-09 08:02:00 No 60 mg, Route: IM, Drug form: INJ, ONCE, Dosing Weight 102.273, kg, Priority: STAT, Start date: 12/09/13 3:02:00, Stop date: 12/09/13 3:02:00 [facility] Vital Signs Vital Name Observation Time Observation Value Comments Source Body Temperature 2020-05-08 02:35:00 98.9 [degF] [facility] Weight 2020-05-07 22:40:00 220 [lb_av] [facility] BMI (Body Mass Index) 2020-05-07 22:40:00 29.8 kg/m2 [facility] Weight 2020-04-06 18:20:00 220 [lb_av] [facility] BMI (Body Mass Index) 2020-04-06 18:20:00 32.5 kg/m2 [facility] Respitory Rate 2020-02-29 08:17:00 Donn al Bill Systolic (mm Hg) 2020-02-29 08:17:00 Keegan rial Bill Diastolic (mm Hg) 2020-02-29 08:17:00 Mem orial Bill Temperature Oral (F) 2020-02-29 08:17:00 98.6 F [facility] Respitory Rate 2020-02-29 07:00:00 [facility] Bill Systolic (mm Hg) 2020-02-29 07:00:00 Keegan rial [place] Diastolic (mm Hg) 2020-02-29 07:00:00 Mem orial Bill Temperature Oral (F) 2020-02-29 07:00:00 98.6 F [facility] Temperature Oral (F) 2020-02-29 06:00:00 98.9 F [facility] Heart Rate 2020-02-29 06:00:00 [facility] [place] Respitory Rate 2020-02-29 06:00:00 [facility] Bill Systolic (mm Hg) 2020-02-29 06:00:00 Keegan rial Bill Diastolic (mm Hg) 2020-02-29 06:00:00 [facility] o[facility] Bill Heart Rate 2020-02-29 05:27:00 [facility] Respitory Rate 2020-01-20 05:41:00 [facility] Systolic (mm Hg) 2020-01-20 05:41:00 Keegan rial Bill Diastolic (mm Hg) 2020-01-20 05:41:00 [facility] [place] Temperature Oral (F) 2020-01-20 05:41:00 98.5 F [facility] Respitory Rate 2020-01-20 05:10:00 [facility] [place] Systolic (mm Hg) 2020-01-20 05:10:00 Keegan rial Bill Diastolic (mm Hg) 2020-01-20 05:10:00 Mem o[facility] Bill Respitory Rate 2020-01-20 04:10:00 [facility] [place] Systolic (mm Hg) 2020-01-20 04:10:00 Keegan rial [place] Diastolic (mm Hg) 2020-01-20 04:10:00 Mem o[facility] Bill Heart Rate 2020-01-20 00:59:00 [facility] Temperature Oral (F) 2020-01-20 00:59:00 98.6 F [facility] Respitory Rate 2020-01-18 21:36:00 [facility] [place] Systolic (mm Hg) 2020-01-18 21:36:00 Keegan rial Bill Diastolic (mm Hg) 2020-01-18 21:36:00 [facility] [place] Temperature Oral (F) 2020-01-18 21:36:00 98.4 F [facility] Heart Rate 2020-01-18 19:53:00 [facility] [place] Respitory Rate 2020-01-18 19:53:00 [facility] [place] Systolic (mm Hg) 2020-01-18 19:53:00 Keegan rial Bill Diastolic (mm Hg) 2020-01-18 19:53:00 Mem orial Bill Height 2020-01-18 17:55:00 182.88 cm [facility] BMI Calculated 2020-01-18 17:55:00 [facility] [place] Weight 2020-01-18 17:55:00 [facility] Systolic (mm Hg) 2020-01-18 17:55:00 Keegan rial [place] Diastolic (mm Hg) 2020-01-18 17:55:00 [facility] [place] Heart Rate 2020-01-18 17:55:00 [facility] Respitory Rate 2020-01-18 17:55:00 Mem[facility] Bill Temperature Oral (F) 2020-01-18 17:55:00 98.9 F [facility] [place] Systolic (mm Hg) 2020-01-14 04:50:00 Keegan rial [place] Diastolic (mm Hg) 2020-01-14 04:50:00 Mem o[facility] Bill Respitory Rate 2020-01-14 04:50:00 Mem[facility] Bill Heart Rate 2020-01-14 04:50:00 [facility] [place] Temperature Oral (F) 2020-01-14 04:50:00 99.5 F [facility] Weight 2020-01-14 01:29:00 [facility] Systolic (mm Hg) 2020-01-14 01:29:00 Keegan rial [place] Diastolic (mm Hg) 2020-01-14 01:29:00 [facility] [place] Heart Rate 2020-01-14 01:29:00 [facility] Respitory Rate 2020-01-14 01:29:00 [facility] [place] Temperature Oral (F) 2020-01-14 01:29:00 99.4 F [facility] Temperature Oral (F) 2020-01-09 07:30:00 98.9 F [facility] Respitory Rate 2020-01-09 07:30:00 [facility] Systolic (mm Hg) 2020-01-09 07:30:00 Keegan rial [place] Diastolic (mm Hg) 2020-01-09 07:30:00 [facility] [place] Heart Rate 2020-01-09 07:30:00 [facility] Temperature Oral (F) 2020-01-09 06:30:00 98.9 F [facility] Heart Rate 2020-01-09 06:30:00 [facility] Respitory Rate 2020-01-09 06:30:00 [facility] Systolic (mm Hg) 2020-01-09 06:30:00 Keegan rial [place] Diastolic (mm Hg) 2020-01-09 06:30:00 Mem orial Bill Temperature Oral (F) 2020-01-09 02:30:00 99.1 F [facility] [place] Heart Rate 2020-01-09 02:30:00 [facility] [place] Respitory Rate 2020-01-09 02:30:00 Mem[facility] Bill Systolic (mm Hg) 2020-01-09 02:30:00 Keegan rial [place] Diastolic (mm Hg) 2020-01-09 02:30:00 [facility] [place] Height 2020-01-08 23:37:00 182.88 cm [facility] BMI Calculated 2020-01-08 23:37:00 [facility] Weight 2020-01-08 23:37:00 [facility] [place] Respitory Rate 2018-04-05 00:20:00 Mem[facility] Bill Systolic (mm Hg) 2018-04-05 00:20:00 Keegan rial [place] Diastolic (mm Hg) 2018-04-05 00:20:00 Mem o[facility] Bill Respitory Rate 2018-04-04 23:55:00 [facility] [place] Systolic (mm Hg) 2018-04-04 23:55:00 Keegan rial [place] Diastolic (mm Hg) 2018-04-04 23:55:00 Mem o[facility] Bill Systolic (mm Hg) 2018-04-04 23:29:00 Keegan rial Bill Diastolic (mm Hg) 2018-04-04 23:29:00 [facility] [place] Respitory Rate 2018-04-04 23:29:00 [facility] [place] Heart Rate 2018-04-04 21:00:00 [facility] Weight 2018-04-04 19:31:00 [facility] [place] Heart Rate 2018-04-04 19:31:00 [facility] [place] Temperature Oral (F) 2018-04-04 19:31:00 97.4 F [facility] [place] Systolic (mm Hg) 2018-02-09 07:50:00 Keegan rial Bill Diastolic (mm Hg) 2018-02-09 07:50:00 [facility] [place] Respitory Rate 2018-02-09 07:50:00 [facility] [place] Heart Rate 2018-02-09 07:50:00 [facility] [place] Temperature Oral (F) 2018-02-09 07:50:00 98.2 F [facility] [place] Systolic (mm Hg) 2018-02-09 06:50:00 Keegan rial Bill Diastolic (mm Hg) 2018-02-09 06:50:00 Mem o[facility] Bill Respitory Rate 2018-02-09 06:50:00 Memori al Bill Heart Rate 2018-02-09 06:50:00 [facility] [place] Weight 2018-02-09 03:30:00 [facility] [place] BMI Calculated 2018-02-09 03:30:00 [facility] [place] Height 2018-02-09 03:30:00 182.88 cm [facility] [place] Temperature Oral (F) 2018-02-09 03:30:00 98.9 F [facility] [place] Respitory Rate 2018-02-09 03:30:00 [facility] [place] Heart Rate 2018-02-09 03:30:00 [facility] [place] Systolic (mm Hg) 2018-02-09 03:30:00 Keegan rial [place] Diastolic (mm Hg) 2018-02-09 03:30:00 Mem orial Bill Weight 2018-02-01 20:33:00 [facility] Temperature Oral (F) 2018-02-01 20:33:00 97.7 F [facility] Systolic (mm Hg) 2018-02-01 20:33:00 Keegan rial [place] Diastolic (mm Hg) 2018-02-01 20:33:00 Mem o[facility] Bill Respitory Rate 2018-02-01 20:33:00 Mem[facility] Heart Rate 2018-02-01 20:33:00 [facility] Respitory Rate 2017-12-03 01:11:00 [facility] [place] Heart Rate 2017-12-03 01:11:00 [facility] [place] Systolic (mm Hg) 2017-12-03 01:11:00 Keegan rial Bill Diastolic (mm Hg) 2017-12-03 01:11:00 Mem o[facility] Bill BMI Calculated 2017-12-02 23:16:00 [facility] Weight 2017-12-02 23:16:00 [facility] Height 2017-12-02 23:16:00 182.88 cm [facility] Temperature Oral (F) 2017-12-02 23:16:00 98.1 F [facility] [place] Heart Rate 2017-12-02 23:16:00 [facility] Respitory Rate 2017-12-02 23:16:00 [facility] [place] Systolic (mm Hg) 2017-12-02 23:16:00 Keegan rial Bill Diastolic (mm Hg) 2017-12-02 23:16:00 [facility] Weight 2017-09-13 03:31:00 [facility] BMI Calculated 2017-09-13 03:31:00 [facility] Height 2017-09-13 03:31:00 182.88 cm [facility] [place] Temperature Oral (F) 2017-09-13 03:31:00 97.9 F [facility] Respitory Rate 2017-09-13 03:31:00 [facility] Heart Rate 2017-09-13 03:31:00 [facility] [place] Systolic (mm Hg) 2017-09-13 03:31:00 Keegan rial Bill Diastolic (mm Hg) 2017-09-13 03:31:00 Mem [facility] Bill Weight 2017-09-12 20:50:00 [facility] BMI Calculated 2017-09-12 20:50:00 [facility] [place] Height 2017-09-12 20:50:00 182.88 cm [facility] [place] Temperature Oral (F) 2017-09-12 20:50:00 98.9 F [facility] [place] Heart Rate 2017-09-12 20:50:00 [facility] [place] Respitory Rate 2017-09-12 20:50:00 [facility] [place] Systolic (mm Hg) 2017-09-12 20:50:00 Keegan rial Bill Diastolic (mm Hg) 2017-09-12 20:50:00 [facility] o[facility] Height 2017-09-11 20:03:00 170.18 cm [facility] [place] Temperature Oral (F) 2017-09-11 20:03:00 98.4 F [facility] BMI Calculated 2017-09-11 20:03:00 [facility] Systolic (mm Hg) 2017-09-11 20:03:00 Keegan rial Bill Diastolic (mm Hg) 2017-09-11 20:03:00 [facility] [place] Heart Rate 2017-09-11 20:03:00 [facility] [place] Respitory Rate 2017-09-11 20:03:00 [facility] [place] Weight 2017-09-11 20:03:00 [facility] [place] Weight 2017 20:35:00 [facility] BMI Calculated 2017 20:35:00 [facility] [place] Temperature Oral (F) 2017 20:35:00 98.3 F [facility] Height 2017 20:35:00 182.88 cm [facility] Respitory Rate 2017 20:35:00 [facility] Heart Rate 2017 20:35:00 [facility] Systolic (mm Hg) 2017 20:35:00 Keegan rial [place] Diastolic (mm Hg) 2017 20:35:00 Mem o[facility] Bill Temperature Oral (F) 2017-07-18 12:00:00 98.6 F [facility] [place] Respitory Rate 2017-07-18 12:00:00 [facility] [place] Heart Rate 2017-07-18 12:00:00 [facility] [place] Systolic (mm Hg) 2017-07-18 12:00:00 Keegan [facility] [place] Diastolic (mm Hg) 2017-07-18 12:00:00 [facility] Respitory Rate 2017-07-18 11:00:00 [facility] [place] Heart Rate 2017-07-18 11:00:00 [facility] Systolic (mm Hg) 2017-07-18 11:00:00 Keegan [facility] [place] Diastolic (mm Hg) 2017-07-18 11:00:00 [facility] [place] Respitory Rate 2017-07-18 10:00:00 [facility] Heart Rate 2017-07-18 10:00:00 [facility] [place] Systolic (mm Hg) 2017-07-18 10:00:00 Keegan [facility] [place] Diastolic (mm Hg) 2017-07-18 10:00:00 [facility] [place] Weight 2017-07-18 06:10:00 [facility] [place] BMI Calculated 2017-07-18 06:10:00 [facility] [place] Height 2017-07-18 06:10:00 182.88 cm [facility] [place] Temperature Oral (F) 2017-07-18 06:10:00 99.3 F [facility] [place] Heart Rate 2017-03-27 09:30:00 [facility] Respitory Rate 2017-03-27 09:30:00 [facility] Systolic (mm Hg) 2017-03-27 09:30:00 Keegan rial [facility] Diastolic (mm Hg) 2017-03-27 09:30:00 [facility] [place] Heart Rate 2017-03-27 07:00:00 [facility] Respitory Rate 2017-03-27 07:00:00 [facility] [place] Systolic (mm Hg) 2017-03-27 07:00:00 Keegan rial Bill Diastolic (mm Hg) 2017-03-27 07:00:00 [facility] Temperature Oral (F) 2017-03-27 05:21:00 98.6 F [facility] [place] Respitory Rate 2017-03-27 05:21:00 [facility] Heart Rate 2017-03-27 05:21:00 [facility] BMI Calculated 2017-03-27 05:21:00 [facility] [place] Weight 2017-03-27 05:21:00 [facility] Height 2017-03-27 05:21:00 170.18 cm [facility] Systolic (mm Hg) 2017-03-27 05:21:00 Keegan rial [place] Diastolic (mm Hg) 2017-03-27 05:21:00 [facility] Heart Rate 2017-01-13 23:57:00 [facility] Systolic (mm Hg) 2017-01-13 23:57:00 Keegan rial Bill Diastolic (mm Hg) 2017-01-13 23:57:00 [facility] Respitory Rate 2017-01-13 23:57:00 [facility] Respitory Rate 2017-01-13 23:19:00 [facility] Systolic (mm Hg) 2017-01-13 23:19:00 Keegan rial [facility] Diastolic (mm Hg) 2017-01-13 23:19:00 [facility] [place] Heart Rate 2017-01-13 23:19:00 [facility] [place] Weight 2017-01-13 22:11:00 [facility] BMI Calculated 2017-01-13 22:11:00 [facility] Height 2017-01-13 22:11:00 182.88 cm [facility] [place] Temperature Oral (F) 2017-01-13 22:11:00 98.7 F [facility] [place] Heart Rate 2017-01-13 22:11:00 [facility] Respitory Rate 2017-01-13 22:11:00 [facility] [place] Systolic (mm Hg) 2017-01-13 22:11:00 Keegan [facility] [place] Diastolic (mm Hg) 2017-01-13 22:11:00 [facility] [place] Systolic (mm Hg) 2016-11-28 04:31:00 Keegan rial [facility] Diastolic (mm Hg) 2016-11-28 04:31:00 [facility] [place] Temperature Oral (F) 2016-11-28 04:31:00 98.3 F [facility] [place] Heart Rate 2016-11-28 04:31:00 [facility] Respitory Rate 2016-11-28 04:31:00 [facility] [place] Weight 2016-11-28 02:07:00 [facility] [place] BMI Calculated 2016-11-28 02:07:00 [facility] Height 2016-11-28 02:07:00 182.88 cm [facility] [place] Systolic (mm Hg) 2016-11-28 02:07:00 [facility] [place] Diastolic (mm Hg) 2016-11-28 02:07:00 [facility] [place] Heart Rate 2016-11-28 02:07:00 [facility] [place] Respitory Rate 2016-11-28 02:07:00 [facility] Temperature Oral (F) 2016-11-28 02:07:00 98.2 F [facility] [place] Heart Rate 2016-09-17 23:08:00 [facility] Respitory Rate 2016-09-17 23:08:00 [facility] Temperature Oral (F) 2016-09-17 23:08:00 98.5 F [facility] [place] Systolic (mm Hg) 2016-09-17 23:08:00 [facility] [facility] Diastolic (mm Hg) 2016-09-17 23:08:00 [facility] Weight 2016-09-17 20:41:00 [facility] Temperature Oral (F) 2016-09-17 20:41:00 98.3 F [facility] [place] Respitory Rate 2016-09-17 20:41:00 [facility] Heart Rate 2016-09-17 20:41:00 [facility] [place] Systolic (mm Hg) 2016-09-17 20:41:00 [facility]egan [facility] [place] Diastolic (mm Hg) 2016-09-17 20:41:00 [facility] Systolic (mm Hg) 2016-08-04 03:37:00 [facility] [place] Diastolic (mm Hg) 2016-08-04 03:37:00 [facility] Respitory Rate 2016-08-04 03:37:00 [facility] [place] Heart Rate 2016-08-04 03:37:00 [facility] Temperature Oral (F) 2016-08-04 03:37:00 98.2 F [facility] Temperature Oral (F) 2016-08-04 00:30:00 99.1 F [facility] [place] BMI Calculated 2016-08-04 00:30:00 [facility] [place] Height 2016-08-04 00:30:00 182.88 cm [facility] Weight 2016-08-04 00:30:00 [facility] [place] Systolic (mm Hg) 2016-08-04 00:30:00 Keegan [facility] Diastolic (mm Hg) 2016-08-04 00:30:00 [facility] [place] Respitory Rate 2016-08-04 00:30:00 [facility] Heart Rate 2016-08-04 00:30:00 [facility] Heart Rate 2016-07-10 21:48:00 [facility] Respitory Rate 2016-07-10 21:48:00 [facility] [place] Temperature Oral (F) 2016-07-10 21:48:00 98.8 F [facility] [place] Systolic (mm Hg) 2016-07-10 21:48:00 Keegan [facility] Diastolic (mm Hg) 2016-07-10 21:48:00 [facility] Systolic (mm Hg) 2016-03-06 07:05:00 [facility] Diastolic (mm Hg) 2016-03-06 07:05:00 [facility] [place] Heart Rate 2016-03-06 07:05:00 [facility] [place] Temperature Oral (F) 2016-03-06 07:05:00 98.2 F [facility] [place] Respitory Rate 2016-03-06 07:05:00 [facility] Weight 2016-03-06 03:12:00 [facility] [place] Temperature Oral (F) 2016-03-06 03:12:00 98.2 F [facility] [place] Respitory Rate 2016-03-06 03:12:00 [facility] Heart Rate 2016-03-06 03:12:00 [facility] Systolic (mm Hg) 2016-03-06 03:12:00 [facility] [place] Diastolic (mm Hg) 2016-03-06 03:12:00 [facility] [place] Heart Rate 2015-11-13 20:34:00 [facility] [place] Respitory Rate 2015-11-13 20:34:00 [facility] [place] Temperature Oral (F) 2015-11-13 20:34:00 99.7 F [facility] Systolic (mm Hg) 2015-11-13 20:34:00 [facility] [place] Diastolic (mm Hg) 2015-11-13 20:34:00 [facility] Height 2015-11-13 20:34:00 182.88 cm [facility] Weight 2015-11-13 20:34:00 [facility] [place] BMI Calculated 2015-11-13 20:34:00 [facility] Weight 2015-11-02 22:56:00 [facility] Respitory Rate 2015-11-02 22:56:00 [facility] Temperature Oral (F) 2015-11-02 22:56:00 98.6 F [facility] Systolic (mm Hg) 2015-11-02 22:56:00 Keegan [facility] Diastolic (mm Hg) 2015-11-02 22:56:00 [facility] Heart Rate 2015-11-02 22:56:00 [facility] BMI Calculated 2015-11-02 22:56:00 [facility] [place] Height 2015-11-02 22:56:00 182.88 cm [facility] [place] Systolic (mm Hg) 2015-09-12 23:49:00 Keegan [facility] Diastolic (mm Hg) 2015-09-12 23:49:00 [facility] Respitory Rate 2015-09-12 23:49:00 [facility] Systolic (mm Hg) 2015-09-12 23:19:00 [facility]egan [facility] [place] Diastolic (mm Hg) 2015-09-12 23:19:00 [facility] Respitory Rate 2015-09-12 23:19:00 [facility] [place] Systolic (mm Hg) 2015-09-12 21:31:00 Keegan [facility] Diastolic (mm Hg) 2015-09-12 21:31:00 [facility] [place] BMI Calculated 2015-09-12 19:45:00 [facility] Weight 2015-09-12 19:45:00 [facility] [place] Height 2015-09-12 19:45:00 182.88 cm [facility] Temperature Oral (F) 2015-09-12 19:45:00 98.1 F [facility] [place] Respitory Rate 2015-09-12 19:45:00 [facility] [place] Heart Rate 2015-09-12 19:45:00 [facility] Height 2015-08-03 21:34:00 175.26 cm [facility] [place] BMI Calculated 2015-08-03 21:34:00 [facility] Weight 2015-08-03 21:34:00 [facility] Heart Rate 2015-08-03 21:34:00 [facility] [place] Systolic (mm Hg) 2015-08-03 21:34:00 [facility]egan [facility] [place] Diastolic (mm Hg) 2015-08-03 21:34:00 [facility] Respitory Rate 2015-08-03 21:34:00 [facility] [place] Temperature Oral (F) 2015-08-03 21:34:00 98.1 F [facility] [place] Heart Rate 2015-06-06 20:15:00 [facility] Systolic (mm Hg) 2015-06-06 20:15:00 Keegan [facility] Diastolic (mm Hg) 2015-06-06 20:15:00 [facility] Respitory Rate 2015-06-06 20:15:00 [facility] Temperature Oral (F) 2015-06-06 20:15:00 98.8 F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 munthirgjx2996-75-63 22:54:00* Test Item Value Reference Range Interpretation Comments Eosinophils (%) (Auto) (test code = 713-8) 0.0 0.0-6.0 [facility] CenterAutomated blood basophil count as percentage of total iamjyzspwd0840-67-06 22:54:00* Test Item Value Reference Range Interpretation Comments Basophils (%) (Auto) (test code = 706-2) 0.5 0.0-1.0 [facility] CenterFluoroscopic procedure less than one hour csflivsz1755-09-33 22:54:00* Test Item Value Reference Range Interpretation Comments IM GRANULOCYTES % (test code = IM GRANULOCYTES %) 0.9 0.0- 1.0 [facility] CenterAutomated blood neutrophil count 2020-05-07 22:54:00* Test Item Value Reference Range Interpretation Comments Neutrophils # (Auto) (test code = 751-8) 2.4 2.1-6.9 [facility] CenterBlood lymphocytes count (number/volume) 2020-05-07 22:54:00* Test Item Value Reference Range Interpretation Comments Lymphocytes # (Auto) (test code = 78267-6) 1.4 1.0-3.2 [facility] monocytes automated count (number/volume)2020-05-07 22:54:00* Test Item Value Reference Range Interpretation Comments Monocytes # (Auto) (test code = 742-7) 0.4 0.2-0.8 [facility] CenterAutomated blood eosinophil count 2020-05-07 22:54:00* Test Item Value Reference Range Interpretation Comments Eosinophils # (Auto) (test code = 711-2) 0.0 0.0-0.4 [facility] CenterAutomated blood basophil count (count/volume)2020-05-07 22:54:00* Test Item Value Reference Range Interpretation Comments Basophils # (Auto) (test code = 704-7) 0.0 0.0-0.1 [facility] CenterFluoroscopic procedure less than one hour neawbqcp2915-14-05 22:54:00* Test Item Value Reference Range Interpretation Comments Absolute Immature Granulocyte (auto (klaudia t code = Absolute Immature Granulocyte (auto) 0.04 0-0.1 [facility] plasma sodium measurement (moles/volume)2020-05-07 22:36:00* Test Item Value Reference Range Interpretation Comments Sodium Level (test code = 2951-2) 134 136-145 [facility]ererum or plasma potassium measurement (moles/volume)2020-05-07 22:36:00* Test Item Value Reference Range Interpretation Comments Potassium Level (test code = 2823-3) 4.0 3.5-5.1 [facility]ererum or plasma chloride measurement (moles/volume)2020-05-07 22:36:00* Test Item Value Reference Range Interpretation Comments Chloride Level (test code = 2075-0) 96 98-107 [facility]ererum or plasma carbon dioxide, total measurement (moles/volume)2020-05-07 22:36:00* Test Item Value Reference Range Interpretation Comments Carbon Dioxide Level (test code = 2028-9) 25 22-29 [facility]ererum or plasma anion azt4680-63-30 22:36:00* Test Item Value Reference Range Interpretation Comments Anion Gap (test code = 81862-8) 17.0 8-16 [facility]ererum or plasma urea nitrogen measurement (mass/volume)2020-05-07 22:36:00* Test Item Value Reference Range Interpretation Comments Blood Urea Nitrogen (test code = 3094-0) 14 7-26 [facility]ererum or plasma creatinine measurement (mass/volume)2020-05-07 22:36:00* Test Item Value Reference Range Interpretation Comments Creatinine (test code = 2160-0) 1.11 0.72-1.25 [facility]ererum or plasma urea nitrogen/creatinine mass vdbrs7637-61-82 22:36:00* Test Item Value Reference Range Interpretation Comments BUN/Creatinine Ratio (test code = 3097-3) 13 6-25 [facility] CenterEstimated glomerular filtration rate (GFR) fwwkbqzfafqkc3046-39-22 22:36:00* Test Item Value Reference Range Interpretation Comments Estimat Glomerular Filtration Rate (test code = 157567583) > 60 >60 Ranges were taken from the National Kidney Disease Education Program and the [facility] literature.Reference ranges:60 or greater: Vydhwn88-01 ( for 3 consecutive months): Chronic kidney disease 15 or less: Kidney failureHendrick Medical CenterGlucose gragjqkguyl9005-34-05 22:36:00* Test Item Value Reference Range Interpretation Comments Glucose Level (test code = WAF7344) 412 74-118 Results repeated and called to robert todd at 2346 on 05/07/20 by Jj Floyd. Read back and verified.[facility]ererum or plasma calcium measurement (mass/volume)2020-05-07 22:36:00* Test Item Value Reference Range Interpretation Comments Calcium Level (test code = 40003-5) 8.5 8.4-10.2 [facility]ererum or plasma total bilirubin measurement (mass/volume)2020-05-07 22:36:00* Test Item Value Reference Range Interpretation Comments Total Bilirubin (test code = 1975-2) 0.4 0.2-1.2 [facility] CenterFluoroscopic procedure less than one hour njkhvjcy1832-01-91 22:36:00* Test Item Value Reference Range Interpretation Comments Aspartate Amino Transf (AST/SGOT) (test code = Aspartate Amino Transf (AST/SGOT)) 25 5-34 [facility] Centererum or plasma alanine aminotransferase measurement (enzymatic activity/volume)2020-05-07 22:36:00* Test Item Value Reference Range Interpretation Comments Alanine Aminotransferase (ALT/SGPT) (test code = 1742-6) 34 0-55 [facility]ererum or plasma protein measurement (mass/volume)2020-05-07 22:36:00* Test Item Value Reference Range Interpretation Comments Total Protein (test code = 2885-2) 7.1 6.5-8.1 [facility]ererum or plasma albumin measurement (mass/volume)2020-05-07 22:36:00* Test Item Value Reference Range Interpretation Comments Albumin (test code = 1751-7) 4.1 3.5-5.0 [facility] CenterPlasma globulin measurement (mass/volume) 2020-05-07 22:36:00* Test Item Value Reference Range Interpretation Comments Globulin (test code = 87713-9) 3.0 2.3-3.5 [facility]ererum or plasma albumin/globulin mass suzoe7609-16-97 22:36:00* Test Item Value Reference Range Interpretation Comments Albumin/Globulin Ratio (test code = 1759-0) 1.4 0.8-2.0 [facility]ererum or plasma alkaline phosphatase measurement (enzymatic activity/volume)2020-05-07 22:36:00* Test Item Value Reference Range Interpretation Comments Alkaline Phosphatase (test code = 6768-6) 77 40-150 [facility] CenterBASIC METABOLIC BGKNS5828-78-51 03:09:00 * Test Item Value Reference Range Interpretation Comments SODIUM (test code = NA) 135 mmol/L 136-145 L POTASSIUM (test code = K) 4.0 mmol/L 3.5-5.1 N CHLORIDE (test code = CL) 106.0 mmol/L 98-107 N CARBON DIOXIDE (test code = CO2) 23.0 mmol/L 21-32 N ANION GAP (test code = GAP) 10.0 10-20 N GLUCOSE (test code = GLU) 346 mg/dL 74-106 H BLOOD UREA NITROGEN (test code = BUN) 15 mg/dL 7-18 N GLOMERULAR FILTRATION RATE (test code = GFR) > 60 mL/min >=60 Estimated GFR by using Modified MDRD formula.Chronic kidney disease is defined as either kidney damageor GFR <60 mL/min/1.73 m2 for >3 months. CREATININE (test code = CREAT) 0.90 mg/dL 0.7-1.3 N BUN/CREATININE RATIO (test code = BUN/CREA) 15.9 10-20 N CALCIUM (test code = CA) 8.8 mg/dL 8.5-10.1 N HEPATIC FUNCTION TDSJF9504-21-83 03:09:00* Test Item Value Reference Range Interpretation Comments TOTAL PROTEIN (test code = PROT) 7.6 gram/dL 6.4-8.2 N ALBUMIN (test code = ALB) 3.6 g/dL 3.4-5.0 N GLOBULIN (test code = GLOB) 4.0 gram/dL 2.7-4.2 N ALBUMIN/GLOBULIN RATIO (test code = A/G) 0.9 0.75-1.50 N BILIRUBIN TOTAL (test code = BILT) 0.20 mg/dL 0.0-1.0 N BILIRUBIN DIRECT (test code = BILD) 0.09 mg/dL 0.0-0.20 N SGOT/AST (test code = AST) 24 IUnit/L 15-37 N SGPT/ALT (test code = ALT) 39 IUnit/L 12-78 N ALKALINE PHOSPHATASE TOTAL (test code = ALKP) 104 IUnit/L 45-117 N Note change in reference range due to change in reagent. BASIC METABOLIC XGQKJ3827-09-20 02:54:00* Test Item Value Reference Range Interpretation Comments SODIUM (test code = NA) 135 mmol/L 136-145 L POTASSIUM (test code = K) 4.0 mmol/L 3.5-5.1 N CHLORIDE (test code = CL) 106.0 mmol/L 98-107 N CARBON DIOXIDE (test code = CO2) mmol/L 21-32 ANION GAP (test code = GAP) 10-20 GLUCOSE (test code = GLU) mg/dL 74-106 BLOOD UREA NITROGEN (test code = BUN) mg/dL 7-18 GLOMERULAR FILTRATION RATE (test code = GFR) mL/min >=60 CREATININE (test code = CREAT) mg/dL 0.7-1.3 BUN/CREATININE RATIO (test code = BUN/CREA) 10-20 CALCIUM (test code = CA) mg/dL 8.5-10.1 HEPATIC FUNCTION QPDVP7100-06-69 02:54:00* Test Item Value Reference Range Interpretation Comments TOTAL PROTEIN (test code = PROT) gram/dL 6.4-8.2 ALBUMIN (test code = ALB) g/dL 3.4-5.0 GLOBULIN (test code = GLOB) gram/dL 2.7-4.2 ALBUMIN/GLOBULIN RATIO (test code = A/G) 0.75-1.50 BILIRUBIN TOTAL (test code = BILT) mg/dL 0.0-1.0 BILIRUBIN DIRECT (test code = BILD) mg/dL 0.0-0.20 SGOT/AST (test code = AST) IUnit/L 15-37 SGPT/ALT (test code = ALT) IUnit/L 12-78 ALKALINE PHOSPHATASE TOTAL (test code = ALKP) IUnit/L 45-117 CBC W/O [id number] 02:10:00* Test Item Value Reference Range Interpretation Comments WHITE BLOOD CELL (test code = WBC) 8.4 K/mm3 4.5-12.5 N RED BLOOD CELL (test code = RBC) 5.24 mill/mm3 4.0-5.8 N HEMOGLOBIN (test code = HGB) 14.7 gram/dL 13.0-17.5 N HEMATOCRIT (test code = HCT) 42.6 % 42.0-52.0 N MEAN CELL VOLUME (test code = MCV) 81.3 fL 80-98 N MEAN CELL HGB (test code = MCH) 28.1 picogram 27.0-33.0 N MEAN CELL HGB CONCETRATION (test code = MCHC) 34.5 gram/dL 33.0-36. 0 N RED CELL DISTRIBUTION WIDTH (test code = RDW) 12.7 % 11.6-16. 2 N PLATELET COUNT (test code = PLT) 254 K/mm3 150-450 N MEAN PLATELET VOLUME (test code = MPV) 9.6 fL 6.7-11.0 N - XR CHEST 1 [id number] 01:36:00 FAX: Se Wade MD [place]: St: REG Name: Jere VALENZUELAASIA Trujillo [facility] : [birth year] Age/S: 54/M [address] [facility] Unit #: [id number] Loc: [place] [address] Phys: Se Wade MD Acct: [id number] Dis Date: Status: REG ER PHONE #: [phone] Exam Date: 05/01/2020 0120 FAX #: [phone] Reason: CHEST PAIN EXAMS: CPT CODE: [id number] XR CHEST 1 V 08052 AFTER HOURS SERVICE ON: 05/01/2020 1:36 AM AP Portable Chest Location Code M12 HISTORY: CHEST PAIN FINDINGS: There are no in filtrates. There are no pleural effusions. There is no pneumothorax. Cardi ac silhouette and mediastinum appear within normal limits. IMPRESSION: No active pulmonary findings. at 0136 Reported and signed by: Luke Evans M.D. CC: Se Wade MD Technologist: Marlon Valdes RT(R) Trnscrd Date/Time/By: 05/01/2020 (135) : By: [email or web address] Orig Print D/T: S: 05/01/2020 (138) PAGE 1 Signed Report - XR HAND 3 + V RT 2020-05-01 01:35:00 FAX: Se Wade MD [place]: St: REG Name: ASIA VICTORIA [facility] : [birth year] Age/S: 54/M [address] [facility] Unit #: [id number] Loc: [place] [address] Phys: Se Wade MD Acct: [id number] Dis Date: Status: REG ER PHONE #: [phone] Exam Date: 05/01/2020 0124 FAX #: [phone] Reason: HAND PAIN EXAMS: CPT CODE: [id number] XR HAND 3 + [place] [address] AFTER HOURS SERVICE ON: 05/01/2020 1:35 AM Right Hand, 3 Views Location Code M12 History: HAND PAIN Findings: There is normal anatomic alignment. No fracture, dislocation or avulsion fragments are s een. Articular surfaces are within normal limits. Impress ion: Unremarkable hand. Electronically Sign ed by Luke Evans M.D. on 05/01/2020 at 0135 Reported and signed by: Luke jade M.D. CC: Se Wade MD Technologist: Marlon Valdes RT(R) Tr nscrd Date/Time/By: 05/01/2020 (134) : By: [email or web address] Orig Print D/T: S: 05/01/2020 (0138) PAGE 1 Claudia d Report CHEST SINGLE (PORTABLE)2020-04-06 20:08:00 [place] [address] Patient Name: ASIA MARI MR #: [id number] : 1965 Age/Sex: 54/M Req #: [id number] Adm Physician: Ordered by: Rahul Blair MD Report #: [id number] Location: ER Room/Bed: Procedure: [id number] DX /CHEST SINGLE (PORTABLE) Exam Date: 04/06/20 Exam Ti me: 1850 REPORT STATUS: Signed E XAMINATION: CHEST SINGLE (PORTABLE) INDICATION: Chest pain. POLO RISON: Chest x-ray on 08/18/2019. FINDINGS: TUBES and LINES: None. LUNGS: Normal lung volumes. Lungs are clear. No consolidations. PLEURA: No pleural effusion or pneumothorax. HEART AND MEDIASTINUM: The cardiomediastinal silhouette is unremarkable. BONES AND SOFT TISSUES: No acute osseous lesion. Soft tissues are unremarkable. UPPER ABDOMEN: No free air under the diaphragm. IMPRESSION: No acute thoracic r adiographic abnormality. Signed by: Shawna Turcios MD on 04/06/2020 8:09 P M Dictated By: SHAWNA TURCIOS MD 08 Transcribed By: LIZA on 04/06/202008 COPY TO: RAHUL BLAIR MD Blood leukocytes automated count (number/volume) 2020-04-06 18:30:00* Test Item Value Reference Range Interpretation Comments White Blood Count (test code = 6690-2) 7.60 4.8-10.8 [facility] CenterBlood erythrocytes automated count (number/volume)2020-04-06 18:30:00* Test Item Value Reference Range Interpretation Comments Red Blood Count (test code = 789-8) 5.33 4.3-5.7 [facility] hemoglobin measurement (moles/volume)2020-04-06 18:30:00* Test Item Value Reference Range Interpretation Comments Hemoglobin (test code = 44289-8) 14.6 14.0-18.0 [facility] CenterAutomated blood hematocrit (volume fraction)2020-04-06 18:30:00* Test Item Value Reference Range Interpretation Comments Hematocrit (test code = 4544-3) 43.1 38.2-49.6 [facility] CenterAutomated erythrocyte mean corpuscular erwkrx3783-63-49 18:30:00* Test Item Value Reference Range Interpretation Comments Mean Corpuscular Volume (test code = 787-2) 80.9 81-99 [facility] CenterAutomated erythrocyte mean corpuscular hemoglobin (mass per erythrocyte)2020-04-06 18:30:00* Test Item Value Reference Range Interpretation Comments Mean Corpuscular Hemoglobin (test code = 785-6) 27.4 28-32 [facility] CenterAut[facility] erythrocyte mean corpuscular hemoglobin concentration measurement (mass/volume)2020-04-06 18:30:00* Test Item Value Reference Range Interpretation Comments Mean Corpuscular Hemoglobin Concent (test code = 786-4) 33.9 31-35 [facility] CenterRDW OksTy-Nci5090-45-26 18:30:00* Test Item Value Reference Range Interpretation Comments Red Cell Distribution Width (test code = 51178-5) 12.5 11.7 -14.4 [facility] CenterAutomated blood platelet count (count/volume)2020-04-06 18:30:00* Test Item Value Reference Range Interpretation Comments Platelet Count (test code = 777-3) 285 140-360 [facility] neutrophil count as percentage of total obiaydejmg5219-39-04 18:30:00* Test Item Value Reference Range Interpretation Comments Neutrophils (%) (Auto) (test code = 42005-5) 59.8 38.7-80.0 [facility] CenterAutomated blood lymphocyte count as percentage ot total fhpjigndmi2773-79-86 18:30:00* Test Item Value Reference Range Interpretation Comments Lymphocytes (%) (Auto) (test code = 736-9) 30.9 18.0-39.1 [facility] CenterAutomated blood monocyte count as percentage of total ufyjaxfclt6401-23-60 18:30:00* Test Item Value Reference Range Interpretation Comments Monocytes (%) (Auto) (test code = 5905-5) 5.7 4.4-11.3 [facility] CenterAutomated blood eosinophil count as percentage of total dmhjgjlabf1006-17-09 18:30:00* Test Item Value Reference Range Interpretation Comments Eosinophils (%) (Auto) (test code = 713-8) 2.4 0.0-6.0 [facility] CenterAutomated blood basophil count as percentage of total elxehimvuv8752-39-15 18:30:00* Test Item Value Reference Range Interpretation Comments Basophils (%) (Auto) (test code = 706-2) 0.4 0.0-1.0 [facility] CenterFluoroscopic procedure less than one hour pnmstexm2212-23-54 18:30:00* Test Item Value Reference Range Interpretation Comments IM GRANULOCYTES % (test code = IM GRANULOCYTES %) 0.8 0.0- 1.0 [facility] CenterAutomated blood neutrophil count 2020-04-06 18:30:00* Test Item Value Reference Range Interpretation Comments Neutrophils # (Auto) (test code = 751-8) 4.6 2.1-6.9 [facility] CenterBlood lymphocytes count (number/volume) 2020-04-06 18:30:00* Test Item Value Reference Range Interpretation Comments Lymphocytes # (Auto) (test code = 10466-1) 2.4 1.0-3.2 [facility] monocytes automated count (number/volume)2020-04-06 18:30:00* Test Item Value Reference Range Interpretation Comments Monocytes # (Auto) (test code = 742-7) 0.4 0.2-0.8 [facility] CenterAutomated blood eosinophil count 2020-04-06 18:30:00* Test Item Value Reference Range Interpretation Comments Eosinophils # (Auto) (test code = 711-2) 0.2 0.0-0.4 [facility] CenterAutomated blood basophil count (count/volume)2020-04-06 18:30:00* Test Item Value Reference Range Interpretation Comments Basophils # (Auto) (test code = 704-7) 0.0 0.0-0.1 [facility] CenterFluoroscopic procedure less than one hour xqygudbx8080-31-26 18:30:00* Test Item Value Reference Range Interpretation Comments Absolute Immature Granulocyte (auto (klaudia t code = Absolute Immature Granulocyte (auto) 0.06 0-0.1 [facility]ere[facility] or plasma sodium measurement (moles/volume)2020-04-06 18:30:00* Test Item Value Reference Range Interpretation Comments Sodium Level (test code = 2951-2) 138 136-145 [facility]ere[facility] or plasma potassium measurement (moles/volume)2020-04-06 18:30:00* Test Item Value Reference Range Interpretation Comments Potassium Level (test code = 2823-3) 4.0 3.5-5.1 [facility]ere[facility] or plasma chloride measurement (moles/volume)2020-04-06 18:30:00* Test Item Value Reference Range Interpretation Comments Chloride Level (test code = 2075-0) 102 98-107 [facility]ere[facility] or plasma carbon dioxide, total measurement (moles/volume)2020-04-06 18:30:00* Test Item Value Reference Range Interpretation Comments Carbon Dioxide Level (test code = 2028-9) 22 22-29 [facility]ere[facility] or plasma anion ork7961-82-50 18:30:00* Test Item Value Reference Range Interpretation Comments Anion Gap (test code = 96038-1) 18.0 8-16 [facility]ere[facility] or plasma urea nitrogen measurement (mass/volume)2020-04-06 18:30:00* Test Item Value Reference Range Interpretation Comments Blood Urea Nitrogen (test code = 3094-0) 11 03-06 [facility]ere[facility] or plasma creatinine measurement (mass/volume)2020-04-06 18:30:00* Test Item Value Reference Range Interpretation Comments Creatinine (test code = 2160-0) 1.06 0.72-1.25 [facility]ere[facility] or plasma urea nitrogen/creatinine mass gklxp2185-79-78 18:30:00* Test Item Value Reference Range Interpretation Comments BUN/Creatinine Ratio (test code = 3097-3) 10 - [facility] CenterEstimated glomerular filtration rate (GFR) bglacvpkczyyu5031-04-00 18:30:00* Test Item Value Reference Range Interpretation Comments Estimat Glomerular Filtration Rate (test code = 698431079) > 60 >60 Ranges were taken from the National Kidney Disease Education Program and the [facility] literature.Reference ranges:60 or greater: Maryvt51-21 ( for 3 consecutive months): Chronic kidney disease 15 or less: Kidney failureHendrick Medical CenterGlucose xumqprwjkia6094-71-12 18:30:00* Test Item Value Reference Range Interpretation Comments Glucose Level (test code = FMC6035) 324 74-118 [facility] plasma calcium measurement (mass/volume)2020-04-06 18:30:00* Test Item Value Reference Range Interpretation Comments Calcium Level (test code = 29524-4) 9.6 8.4-10.2 [facility] or plasma total bilirubin measurement (mass/volume)2020-04-06 18:30:00* Test Item Value Reference Range Interpretation Comments Total Bilirubin (test code = 1975-2) 0.3 0.2-1.2 [facility] CenterFluoroscopic procedure less than one hour rhfsrnjg5649-38-76 18:30:00* Test Item Value Reference Range Interpretation Comments Aspartate Amino Transf (AST/SGOT) (test code = Aspartate Amino Transf (AST/SGOT)) 12 5-34 [facility]ererum or plasma alanine aminotransferase measurement (enzymatic activity/volume)2020-04-06 18:30:00* Test Item Value Reference Range Interpretation Comments Alanine Aminotransferase (ALT/SGPT) (test code = 1742-6) 23 0-55 [facility] or plasma protein measurement (mass/volume)2020-04-06 18:30:00* Test Item Value Reference Range Interpretation Comments Total Protein (test code = 2885-2) 7.5 6.5-8.1 [facility]ererum or plasma albumin measurement (mass/volume)2020-04-06 18:30:00* Test Item Value Reference Range Interpretation Comments Albumin (test code = 1751-7) 3.9 3.5-5.0 [facility] CenterPlasma globulin measurement (mass/volume) 2020-04-06 18:30:00* Test Item Value Reference Range Interpretation Comments Globulin (test code = 85054-2) 3.6 2.3-3.5 [facility]ererum or plasma albumin/globulin mass cvceg4710-19-67 18:30:00* Test Item Value Reference Range Interpretation Comments Albumin/Globulin Ratio (test code = 1759-0) 1.1 0.8-2.0 [facility]ererum or plasma alkaline phosphatase measurement (enzymatic activity/volume)2020-04-06 18:30:00* Test Item Value Reference Range Interpretation Comments Alkaline Phosphatase (test code = 6768-6) 90 40-150 [facility] CenterTroponin I measurement by highly sensitive enzyme qufmqzftnvf9069-15-19 18:30:00* Test Item Value Reference Range Interpretation Comments Troponin I (test code = 64718-8) < 0.001 0-0.300 [facility]ererum or plasma lipase measurement (enzymatic activity/volume)2020-04-06 18:30:00* Test Item Value Reference Range Interpretation Comments Lipase (test code = 3040-3) 21 8-78 [facility] CenterTroponin I measurement by highly sensitive enzyme zbvdnatpgpl3701-97-12 18:30:00* Test Item Value Reference Range Interpretation Comments Troponin I (test code = 95970-1) < 0.001 0-0.300 [facility]ererum or plasma lipase measurement (enzymatic activity/volume)2020-04-06 18:30:00* Test Item Value Reference Range Interpretation Comments Lipase (test code = 3040-3) 21 8-78 [facility] CenterCARDIAC XWJBILG7751-10-49 06:51:00<0.02 [facility] VJLID7230-44-12 06:51:68762Vcxpqjuv HermannCHEM PANEL 2020-02-29 06:51:008[facility]annCHE[facility] GTEDO6179-71-84 06:51:000.90[facility]annCHEM PKKCF5797-58-87 06:51:90618Atgkyypy [facility]annCHE[facility] XOUFW6221-91-79 06:51:003.4[facility]annCHE[facility] IMGPS2472-52-13 06:51:07530Xvgzhksq [facility]CHE[facility] NDCDT8900-29-66 06:51:0031[facility]annCHE[facility] KFOCS5406-16-54 06:51:008.9 [facility]CHE[facility] WVQVB1831-90-25 06:51:007.4[facility]annCHEM PANEL 2020-02-29 06:51:003.6[facility]annCHE[facility] ATHGF5325-65-72 06:51:0041[facility]annCHE[facility] HBQNC8677-35-40 06:51:0016[facility]annCHE[facility] BFTBU1737-38-06 06:51:09339Gfncnobz [facility]annCHE[facility] WSQRV3257-35-11 06:51:000.5[facility]annCHE[facility] TLVFK6678-26-26 06:51:007.4[facility]annCHE[facility] KSSCR8739-83-92 06:51:00* Test Item Value Reference Range Interpretation Comments B/C Ratio (test code = B/C Ratio) 9 1 6-25 [facility]CHE[facility] NXXQT4544-24-96 06:51:003.8[facility]annCHEM PANEL 2020-02-29 06:51:00* Test Item Value Reference Range Interpretation Comments A/G Ratio (test code = A/G Ratio) 0.9 1 0.7-1.6 [facility]CHE[facility] QYVRN1941-67-79 06:51:0097[facility]annHEMATOLOGY 2020-02-29 06:51:009.3[facility] AywozugQRGOFOXLIM7933-70-08 06:51:005.12[facility] DonfjgfULXXVFWMUZ4912-30-48 06:51:0014.2[facility] SbhpephUJCUQAAFDG5535-83-55 06:51:0042.7[facility] SrlumasLKCKEUUKWK3155-59-94 06:51:0083.4[facility] ZVHTVCFIGU2050-24-40 06:51:00* Test Item Value Reference Range Interpretation Comments MCH (test code = MCH) 27.7 pg 27.0-31.0 [facility] ZubyxliEXLLVNVUPF4778-98-74 06:51:0033.3[facility]annHEMATOLOGY 2020-02-29 06:51:0013.4[facility] SuidtjlCJQSLLBKNL5729-15-42 06:51:38032Nkysuqcj LxbyjcxSSJZXWXIBB3951-16-51 06:51:007.6[facility] ToabqooZHOAFYDHRF0554-47-45 06:51:0062.4[facility] MysoptkYUMSGATRVN7581-60-12 06:51:0028.1[facility] EYOMGMAFLW7635-53-12 06:51:006.0[facility] NvxoevaCKZCIDTCRP2164-92-78 06:51:002.6 [facility] BqehaarDVYJIGPELI5845-27-26 06:51:000.9[facility]annHEMATOLOGY 2020-02-29 06:51:005.8[facility] UnzzuktXRHKUKLGTE6704-65-59 06:51:002.6[facility] TsehbwdMFAEWLRHVC0381-45-08 06:51:000.6[facility] PgsrupvMCTALMGASR6966-48-35 06:51:000.2[facility] QmbqkywXXQURASQZD1420-94-70 06:51:000.1[facility] ACREBCZSZO4041-81-82 06:51:00Not Detected (02/29/20 1:51 AM)[facility] CARDIAC PLXBTLL6364-77-41 03:24:00<0.02[facility]annCHEM ZMWOB5326-44-08 03:24:51510Axttyqjc [facility]annCHEM WUXIQ1212-09-69 03:24:0011[facility]annCHE[facility] BVUIH6014-43-18 03:24:000.89[facility]annCHE[facility] CZWGZ5910-23-20 03:24:02575 [facility] JRBPE2333-79-99 03:24:003.8[facility]annCHEM PANEL 2020-01-20 03:24:30702Wzetlyiq [facility]annCHEM MELJY2033-97-95 03:24:0029[facility]CHE[facility] TNNXF6834-04-76 03:24:008.9[facility]annCHE[facility] KWSOH6794-92-06 03:24:007.4[facility]annCHE[facility] VXNQI1021-39-10 03:24:003.4[facility]annCHE[facility] VCJRG3559-65-38 03:24:0032[facility]annCHE[facility] JQKKR1325-15-66 03:24:0017 [facility]CHE[facility] RCEXU7596-18-84 03:24:0094[facility]annCHEM PANEL 2020-01-20 03:24:000.3[facility]annCHE[facility] AYWCT0534-09-33 03:24:0010.8[facility]annCHE[facility] FNMHP9277-22-38 03:24:00* Test Item Value Reference Range Interpretation Comments B/C Ratio (test code = B/C Ratio) 12 1 6-25 [facility]CHE[facility] JCFOQ5238-62-05 03:24:004.0[facility]annCHEM PANEL 2020-01-20 03:24:00* Test Item Value Reference Range Interpretation Comments A/G Ratio (test code = A/G Ratio) 0.8 1 0.7-1.6 [facility]CHE[facility] PMEYA9069-01-89 03:24:0098[facility]annCHEM PANEL 2020-01-20 03:24:0094[facility] ChrwvajNAXJODVICH3541-56-13 03:24:009.3[facility] WwfnulaAMPOVAJKIJ8113-96-37 03:24:005.21[facility] QawmexlVHYHXUZKPO8747-32-09 03:24:0014.4[facility] UpovktnTGNBFKNADR6295-41-44 03:24:0042.7[facility] LIYYOLGPVP2543-31-75 03:24:0082.0[facility] AzzvcsdBMEOMWMZLT0528-34-32 03:24:00* Test Item Value Reference Range Interpretation Comments MCH (test code = MCH) 27.6 pg 27.0-31.0 [facility] WddlkhgWJHLXYJFPH9279-48-99 03:24:0033.7[facility] HermannHEMATOLOGY 2020-01-20 03:24:0013.6[facility] OpnbbhiLGDDWCCMRZ4423-32-70 03:24:01210Vygktwlu UkjawmzSRBUVOEORA1668-80-71 03:24:007.5[facility] BcxtfvuMIUNISORLR3753-21-18 03:24:0059.1[facility] RyxswmkAWOVTHZKFK0458-09-81 03:24:0032.0[facility] MAMWXBYXYH1486-95-73 03:24:005.8[facility] TeitntxXSLREVHFGO8654-71-24 03:24:002.7 [facility] PyzxjalDYFDEMBFSX1218-91-96 03:24:000.4[facility]annHEMATOLOGY 2020-01-20 03:24:005.5[facility] IgnpefzTIBVGPGHML8358-56-81 03:24:003.0[facility] XyrzzbjDOOCMKBRSV2459-17-01 03:24:000.5[facility] VwsqlxiTSQPWHSSMT4615-44-25 03:24:000.3[facility]annCARDIAC JUFQPHK9061-53-80 20:01:00<0.02[facility]annCARDIAC IBFYSBJ4463-71-64 20:01:0085[facility]annCHEM QUJQH3823-59-93 20:01:23220Rrbkezff [facility]annCHEM JFGMD1200-52-25 20:01:0015[facility]annCHEM BEXTI2678-82-70 20:01:001.06[facility]annCHE[facility] QYGMM9325-97-99 20:01:56509 [facility]annCHE[facility] RAGUW7750-28-20 20:01:004.7[facility]annCHEM PANEL 2020-01-18 20:01:03334Gklyqshy [facility]annCHE[facility] MGRDU2104-67-24 20:01:0030[facility]annCHE[facility] XTUFP9355-33-94 20:01:009.6[facility]annCHE[facility] EFMIV3221-16-69 20:01:007.6[facility]annCHEM OONWA1711-03-24 20:01:003.7[facility]annCHE[facility] ANIQU6087-96-47 20:01:0030[facility]annCHE[facility] PKQDW5797-09-23 20:01:0015 [facility]CHE[facility] HRLZC0770-36-28 20:01:0087[facility]annCHEM PANEL 2020-01-18 20:01:000.4[facility]annCHEM OFTOD7203-57-84 20:01:0010.7[facility]annCHE[facility] YFPBO6922-25-99 20:01:00* Test Item Value Reference Range Interpretation Comments B/C Ratio (test code = B/C Ratio) 14 1 6-25 [facility]CHE[facility] DVPSP2477-75-59 20:01:003.9[facility]annCHEM PANEL 2020-01-18 20:01:00* Test Item Value Reference Range Interpretation Comments A/G Ratio (test code = A/G Ratio) 0.9 1 0.7-1.6 [facility]CHE[facility] NZJTH7368-30-17 20:01:0080[facility]annCHEM PANEL 2020-01-18 20:01:0082[facility] FlszodrEJDJPICHWO4320-44-10 20:01:008.4[facility] DthuthzXGMULZEMZL4815-66-62 20:01:005.27[facility] HlbghfyKUUHDIRDYN1576-96-29 20:01:0014.9[facility] JlskbtaGAYBHLZBWD1608-32-30 20:01:0043.3[facility] DYNMJNPUDL1418-12-54 20:01:0082.2[facility] MphfsaaDFLZOXZPSJ6847-46-59 20:01:00* Test Item Value Reference Range Interpretation Comments MCH (test code = MCH) 28.3 pg 27.0-31.0 [facility] QzbrvtuDJAMYZRFDZ1036-19-17 20:01:0034.4[facility] HermannHEMATOLOGY 2020-01-18 20:01:0013.8[facility] KtvucwiPPDKEZKPZO9495-09-03 20:01:39180Ekvkzjxu CtdrlekLQUSVIMSHQ9279-47-06 20:01:007.3[facility] PejyuanAMNSGKXFXH6876-22-99 20:01:0068.6[facility] SdbbufaOSOMWGEVGH3235-73-94 20:01:0022.3[facility] ZGXQJWEVUP8673-18-37 20:01:006.1[facility] HrhehphDBMGFBSMUY0384-15-50 20:01:002.5 [facility] WshnefiWFKAZOQAJJ9875-95-64 20:01:000.5[facility] HermannHEMATOLOGY 2020-01-18 20:01:005.7[facility] FmykagpBRUBOUPMXW0536-23-38 20:01:001.9[facility] SfxqkvbYWMQNNLKOD9983-19-97 20:01:000.5[facility] YmzplofYBYQHWMGAT7548-57-43 20:01:000.2[facility]annCHEM WIYLC0392-33-79 05:07:01513Fsjibxvy [facility]annCHE[facility] VZMOI5710-28-74 05:07:008[facility]annCHEM TOXIO2907-76-79 05:07:000.76 [facility]CHE[facility] WNMBR0694-75-05 05:07:87701Vpinndbq [facility]annCHEM PANEL 2020-01-14 05:07:003.4[facility]annCHEM DATBB6243-10-47 05:07:87530Kaaxjyqm [facility]annCHE[facility] VWDGY3630-83-86 05:07:0032[facility]annCHEM KULGY0472-90-54 05:07:008.8[facility]annCHEM QQIHB9167-88-39 05:07:006.4[facility]annCHEM ESWYC0893-23-89 05:07:25342Tnrsvqgj [facility]CHE[facility] EGTCK2477-28-67 05:07:003.6 [facility]CHE[facility] SBLXY7238-56-48 05:07:0027[facility]annCHEM PANEL 2020-01-14 05:07:0010[facility]annCHEM IYCVP4560-85-35 05:07:00<0.1[facility]annCHEM LSJKJ7963-03-39 05:07:007.5[facility]annCHEM QODWM5040-54-36 05:07:003.9[facility]annCHEM VMCMR9004-82-34 05:07:00* Test Item Value Reference Range Interpretation Comments A/G Ratio (test code = A/G Ratio) 0.9 1 0.7-1.6 [facility]CHE[facility] JBKKY5818-92-74 05:07:0081[facility]annCHEM PANEL 2020-01-14 05:07:000.4[facility]annCHEM SDCAF2302-64-47 05:07:0072[facility] EwhvproLJCLLNTPEP6724-28-33 05:07:007.9[facility] LqvvoejRDWWCVXDQL3940-99-35 05:07:005.04[facility] AqeuwtlQBMKLQZHWZ6218-64-23 05:07:0014.0[facility] AFWPLJTMWL0453-63-53 05:07:0041.5[facility] HutjaraWILNPYNIWG7838-03-72 05:07:00 82.3[facility] MrntqmnGWXNRHVIBD0848-94-25 05:07:00* Test Item Value Reference Range Interpretation Comments MCH (test code = MCH) 27.8 pg 27.0-31.0 [facility] JwbkonkYGBOHYFXGP1333-28-47 05:07:0033.8[facility] HermannHEMATOLOGY 2020-01-14 05:07:0013.6[facility] UkmiwzgZPEJGRYUJJ7287-10-43 05:07:22432Rlsaduok SeapvepDCUCWVRCRC8887-00-94 05:07:007.5[facility] MngejbeIFCCZVRIVL1937-99-19 05:07:0054.2[facility] EwoivygXKWHFBHHTG7560-19-66 05:07:0035.5[facility] FDRQJDHYZP4565-18-59 05:07:007.2[facility] BnaoebgZXIWJPHNPU6668-23-16 05:07:002.5 [facility] AoooqsqQQTWSTWINE1927-21-08 05:07:000.6[facility] HermannHEMATOLOGY 2020-01-14 05:07:004.3[facility] TtgzngtLBKSDVWGMB3678-81-08 05:07:002.8[facility] UcpphzrJXGKSXJSRE8504-37-49 05:07:000.6[facility] XxkywbkFKVXRLYQLW4888-03-38 05:07:000.2[facility] MgpsfxcMHDJQ8612-13-06 05:15:00Positive *ABN*(01/09/20 12:15 AM)[facility] UNILAT W/IBZ7961-92-93 21:23:[address] [place] [address] Patient Name: BARBARA MARI MR #: [id number] : 1965 Age/Sex: 53/M Req #: [id number] Adm Physician: Ordered by: CATRINA MAHER MD Report #: [id number] Location: ER Room/Bed: Procedure: [id number] DX/RIBS UNILAT W/CXR Exam Date: 08/18/19 Exam Time: 2024 REPORT STATUS: Signed Ex am: Chest and left rib series History: Left rib pain Comparison: Non e. Findings: Chest: The lungs are well-inflated and without focal cons olidation, pleural effusion, or pneumothorax. Cardiomediastinal contour and pu lmonary vasculature are within normal limits. Ribs: No acute, displaced l eft rib fracture or destructive lesion. Impression: No acute displaced l eft rib fracture or pneumothorax. Clear lungs. Signed by: Dr Buddy Pastor M.D. on 08/18/2019 9:26 PM Dictated By: NIC PASTOR MD 25 Transcribed By: MIGUEL CHOW on 08/18/192125 COPY TO: CATRINA MAHER MD CT BRAIN IL8236-88-89 20:42:00 [facility] [address] [address] Patient Name: BARBARA MARI MR #: [id number] : 1965 Age/Sex: 53/M Req #: [id number] Adm Physician: Ordered by: CATRINA MAHER MD Report #: [id number] Location: ER Room/Bed: Procedure: [id number] CT/CT BRAIN WO Exam Date: 08/18/19 Exam [...] into coronal and sagittal planes. Dose modulation, iterat yao reconstruction, and/or weight based adjustment of the mA/kV was utilized t o reduce the radiation dose to as low as reasonably achievable. Intraveno us contrast: None IMAGE QUALITY: Suboptimal evaluation particularly at th e level of skull base and posterior fossa structures due to streak artifacts. FINDINGS: Skull/scalp: Mild left posterior parietal scalp edema/hemat renetta. No soft tissue emphysema or radiopaque foreign body. No acute displaced o r depressed calvarial fracture. No lytic or blastic. lesions. No surgical ela nges. Parenchyma: No abnormal density. No acute hemorrhage, mass or acut e major vascular territorial infarct. Arteries: No density suggestive of t hrombosis. Dural sinuses: No abnormal density suggestive of thrombosis. Ventricles: No hydrocephalus or displacement. Extra-axial spaces: No abnormal density. Brain volume: Normal for age. Craniocervical junction: No mass, Chiari malformation, or basilar invagination. Sella: No mass. Paranasal/mastoid sinuses: Imaged portions unremarkable. IMPRESSION: 1. Mild left posterior parietal scalp soft tissue edema/hemato ma. No acute fracture. 2. No acute posttraumatic intracranial abnormality . Signed by: Dr. Mariaa Harris M.D. on 08/18/2019 8:48 PM Dictated By: MARIAA HARRIS MD 47 Transcribed By: LIZA on 08/18/192047 COPY TO: GUILLERMO MAHER MD STREPTOCOCCUS PCR AZJVLL2406-44-65 02:38:00* Test Item Value Reference Range Interpretation Comments STREPTOCOCCUS DYSGALACTIAE (test code = STREPGC) NEGATIVE FOR G/C N EGATIVE STREPA MOLECULAR (test code = STREPAMOL) NEGATIVE FOR GRP A NEGATIV E B-TYPE NATRIURETIC [id number] 22:42:00* Test Item Value Reference Range Interpretation Comments B-TYPE NATRIURETIC PEPTIDE (test code = BNP) 18.43 pgram/mL 0-100 N BASIC METABOLIC SDFSB4569-64-62 22:37:00* Test Item Value Reference Range Interpretation Comments SODIUM (test code = NA) 142 mmol/L 136-145 N POTASSIUM (test code = K) 3.7 mmol/L 3.5-5.1 N CHLORIDE (test code = CL) 106.0 mmol/L 98-107 N CARBON DIOXIDE (test code = CO2) 31.0 mmol/L 21-32 N ANION GAP (test code = GAP) 8.7 10-20 L GLUCOSE (test code = GLU) 206 mg/dL 74-106 H BLOOD UREA NITROGEN (test code = BUN) 8 mg/dL 7-18 N GLOMERULAR FILTRATION RATE (test code = GFR) > 60 mL/min >=60 Estimated GFR by using Modified MDRD formula.Chronic kidney disease is defined as either kidney damageor GFR <60 mL/min/1.73 m2 for >3 months. CREATININE (test code = CREAT) 0.80 mg/dL 0.7-1.3 N BUN/CREATININE RATIO (test code = BUN/CREA) 10.0 10-20 N CALCIUM (test code = CA) 8.8 mg/dL 8.5-10.1 N JQBWTCXH-D6245-91-26 22:37:00* Test Item Value Reference Range Interpretation Comments TROPONIN-I (test code = TROPI) <0.015 ng/mL 0-0.045 N BASIC METABOLIC [id number] 22:24:00* Test Item Value Reference Range Interpretation Comments SODIUM (test code = NA) 142 mmol/L 136-145 N POTASSIUM (test code = K) 3.7 mmol/L 3.5-5.1 N CHLORIDE (test code = CL) 106.0 mmol/L 98-107 N CARBON DIOXIDE (test code = CO2) mmol/L 21-32 ANION GAP (test code = GAP) 10-20 GLUCOSE (test code = GLU) mg/dL 74-106 BLOOD UREA NITROGEN (test code = BUN) mg/dL 7-18 GLOMERULAR FILTRATION RATE (test code = GFR) mL/min >=60 CREATININE (test code = CREAT) mg/dL 0.7-1.3 BUN/CREATININE RATIO (test code = BUN/CREA) 10-20 CALCIUM (test code = CA) mg/dL 8.5-10.1 RFQFLMGY-[id number] 22:24:00* Test Item Value Reference Range Interpretation Comments TROPONIN-I (test code = TROPI) ng/mL 0-0.045 CBC W/O [id number] 22:13:00* Test Item Value Reference Range Interpretation Comments WHITE BLOOD CELL (test code = WBC) 6.9 K/mm3 4.5-12.5 N RED BLOOD CELL (test code = RBC) 5.02 mill/mm3 4.0-5.8 N HEMOGLOBIN (test code = HGB) 13.9 gram/dL 13.0-17.5 N HEMATOCRIT (test code = HCT) 41.6 % 42.0-52.0 L MEAN CELL VOLUME (test code = MCV) 82.9 fL 80-98 N MEAN CELL HGB (test code = MCH) 27.7 picogram 27.0-33.0 N MEAN CELL HGB CONCETRATION (test code = MCHC) 33.4 gram/dL 33.0-36. 0 N RED CELL DISTRIBUTION WIDTH (test code = RDW) 13.2 % 11.6-16. 2 N PLATELET COUNT (test code = PLT) 228 K/mm3 150-450 N MEAN PLATELET VOLUME (test code = MPV) 9.4 fL 6.7-11.0 N CBC W/O [id number] 22:12:00* Test Item Value Reference Range Interpretation Comments WHITE BLOOD CELL (test code = WBC) K/mm3 4.5-12.5 RED BLOOD CELL (test code = RBC) mill/mm3 4.0-5.8 HEMOGLOBIN (test code = HGB) 13.9 gram/dL 13.0-17.5 N HEMATOCRIT (test code = HCT) % 42.0-52.0 MEAN CELL VOLUME (test code = MCV) fL 80-98 MEAN CELL HGB (test code = MCH) picogram 27.0-33.0 MEAN CELL HGB CONCETRATION (test code = MCHC) gram/dL 33.0-36. 0 RED CELL DISTRIBUTION WIDTH (test code = RDW) % 11.6-16. 2 PLATELET COUNT (test code = PLT) K/mm3 150-450 MEAN PLATELET VOLUME (test code = MPV) fL 6.7-11.0 - XR CHEST 1 [id number] 20:49:00 FAX: Dylan Young MD [phone] [place]: St: REG Name: ASIA VICTORIA [facility] : [birth year] Age/S: 53/M [address] [facility] Unit #: [id number] Loc: [place] [address] Phys: Dylan Young MD Acct: [id number] Dis Date: Status: REG ER PHONE #: [phone] Exam Date: 08/06/20192028 FAX #: [phone] Reason: Shortness of Breath EXAMS: CPT CODE: [id number] XR CHEST 1 V 86339 HISTORY: Shortness of breath. COMPARISON: July 26, 2019. Location: TH. No acute infiltrates, effusion or congestion is noted. The cardiac and mediastinal silhouette are within normal limits. IMPRES EYAL: No acute infiltrates, effusion or congestion. at 2048 Reported and signed by: Troy Glynn M.D. CC: Dylan Young MD Technologist: Familia Goss RT(R) Trnscrd Date/Time/By: 08/06/2019 (2048) : By: [email or web address] Orig Print D/T: S: 08/06/2019 (2052) PAGE 1 Signed Report BASIC METABOLIC [id number] 19:36:00* Test Item Value Reference Range Interpretation Comments SODIUM (test code = NA) 138 mmol/L 136-145 N POTASSIUM (test code = K) 4.0 mmol/L 3.5-5.1 N CHLORIDE (test code = CL) 103.0 mmol/L 98-107 N CARBON DIOXIDE (test code = CO2) 29.0 mmol/L 21-32 N ANION GAP (test code = GAP) 10.0 10-20 N GLUCOSE (test code = GLU) 240 mg/dL 74-106 H BLOOD UREA NITROGEN (test code = BUN) 17 mg/dL 7-18 N GLOMERULAR FILTRATION RATE (test code = GFR) > 60 mL/min >=60 Estimated GFR by using Modified MDRD formula.Chronic kidney disease is defined as either kidney damageor GFR <60 mL/min/1.73 m2 for >3 months. CREATININE (test code = CREAT) 1.00 mg/dL 0.7-1.3 N BUN/CREATININE RATIO (test code = BUN/CREA) 17.0 10-20 N CALCIUM (test code = CA) 9.3 mg/dL 8.5-10.1 N [id number] 19:36:00* Test Item Value Reference Range Interpretation Comments TROPONIN-I (test code = TROPI) <0.015 ng/mL 0-0.045 N CBC W/O [id number] 19:30:00* Test Item Value Reference Range Interpretation Comments WHITE BLOOD CELL (test code = WBC) 10.2 K/mm3 4.5-12.5 N RED BLOOD CELL (test code = RBC) 5.33 mill/mm3 4.0-5.8 N HEMOGLOBIN (test code = HGB) 14.9 gram/dL 13.0-17.5 N HEMATOCRIT (test code = HCT) 42.8 % 42.0-52.0 N MEAN CELL VOLUME (test code = MCV) 80.3 fL 80-98 N MEAN CELL HGB (test code = MCH) 28.0 picogram 27.0-33.0 N MEAN CELL HGB CONCETRATION (test code = MCHC) 34.8 gram/dL 33.0-36. 0 N RED CELL DISTRIBUTION WIDTH (test code = RDW) 12.8 % 11.6-16. 2 N PLATELET COUNT (test code = PLT) 290 K/mm3 150-450 N MEAN PLATELET VOLUME (test code = MPV) 9.5 fL 6.7-11.0 N - XR CHEST 2 [id number] 19:28:00 FAX: Carlos Dooley Mcpherson: B St: REG Name: ASIA VICTORIA [facility] : [birth year] Age/S: 53/M [address] [facility] Unit #: [id number] Loc: [place] [address] Phys: Carlos Dooley MD Acct: [id number] Dis Date: Status: REG ER PHONE #: [phone] Exam Date: 07/26/20191913 FAX #: [phone] Reason: CHEST PAIN EXAMS: CPT CODE: [id number] XR CHEST 2 V [id number] REASON FOR EXAM: CHEST PAIN Exam Order Date: 07/26/2019 7:02 PM Ordering MLaura: Carlos Dooley MD PROCEDURE: - XR CHEST 2 V CO MPARISON: Frontal chest x-ray March 27, 2019 FINDINGS: Th e lungs are clear. There is no pleural effusion or pneumothorax. Pulmonar y vascularity is within normal limits. Cardiomediastinal silhouett e is normal in size for technique. The mediastinal contours are within nor mal limits. Musculoskeletal structures are within normal limits. The visualized upper abdomen is within normal limits. IMPRESSION: No acute cardiopulmonary process. Location: RR at 1928 Reported and signed by: Johnnie Caballero MD CC: Carlos Dooley MD Technologist: Brie CALERO RT(R) Trnscrd Date/Time/By: 07/12 (1927) : By: [email or web address] Orig Print D/T: S: 07/26/2019 (1930) PAGE 1 Signed Report CBC W/O [id number] 19:27:00* Test Item Value Reference Range Interpretation Comments WHITE BLOOD CELL (test code = WBC) K/mm3 4.5-12.5 RED BLOOD CELL (test code = RBC) mill/mm3 4.0-5.8 HEMOGLOBIN (test code = HGB) 14.9 gram/dL 13.0-17.5 N HEMATOCRIT (test code = HCT) 42.8 % 42.0-52.0 N MEAN CELL VOLUME (test code = MCV) fL 80-98 MEAN CELL HGB (test code = MCH) picogram 27.0-33.0 MEAN CELL HGB CONCETRATION (test code = MCHC) gram/dL 33.0-36. 0 RED CELL DISTRIBUTION WIDTH (test code = RDW) % 11.6-16. 2 PLATELET COUNT (test code = PLT) K/mm3 150-450 MEAN PLATELET VOLUME (test code = MPV) fL 6.7-11.0 - XR CHEST 1 [id number] 10:36:00 FAX: Swapna Gonsalez [facility] Mcpherson: B St: REG Name: ASIA VCITORIA [facility] : [birth year] Age/S: 53/M [address] Unit #: [id number] Loc: [place] [address] Phys: Swapna Gonsalez [employer] TECHNICIAN Acct: [id number] Dis Date: Status: REG ER PHONE #: [phone] Exam Date: 03/27/2019 1024 FAX #: [phone] Reason: RIB PAIN EXAMS: CPT CODE: [id number] XR CHEST 1 V [id number] REASON FOR EXAM: RIB PAIN Exam Order Date: 03/27/2019 9:38 AM Ordering MLaura: Sia Gonsalez NP PROCEDURE: - XR CHEST 1 V COMPARISON: CT of the chest and abdomen and pelvis March 25, 2019 FINDINGS: The lungs are clear. There is no pleural effusion or pneumot horax. Pulmonary vascularity is within normal limits. Cardio mediastinal silhouette is normal in size for technique. The mediastinal co ntours are within normal limits. There are degenerative changes in the spine. The visualized upper abdomen is within normal limits. IMPRESSION: No acute cardiopulmonary process. at 1036 Reported and signed by: Johnnie Caballero MD CC: Swapna Jay NP Technologist: Sveta Bell(Sharon) Trnscrd Date/Time/By: 03/27/2019 (1036) : By: Beto.RR31 Orig Print D/T: S: 03/27/2019 (7195) PAGE 1 Signed Report - CT ABD PELVIS [id number] 21:58:00 Name: ASIA MARI [facility] : 1965 Age/S: 53 / M [address] [facility] Unit #: [id number] Loc: [place] [address] Phys: Dylan Young MD Acct: [id number] Dis Date: Status: DEP ER PHONE #: [phone] Exam Date: 03/25/2019 214 FAX #: [phone] Reason: upper abd pain after fall EXAMS: CPT CODE: [id number] CT ABD PELVIS W/CONT 04027 REASON FOR EXAM: upper abd pain after fall EXAM ORDER DATE: 03/25/2019 6:47 PM Ordering Jc: Dylan Young MD PROCEDURE: - CT ABD PELVIS W/CONT COMPARISON: FINDINGS: CT images of the abdomen and pelvis were obtained with IV and without oral contrast at 5mm. Dose modulation, iterative reconstruction, and/or weight based adjustment of the MA/KV was utilized to reduce the radiation dose to as low as reasonably achievable. Intravenous contrast: 100cc of Omnipaque 370. The liver, spleen, pancreas are grossly within normal limits. The gallbladder is unremarkable by CT The kidneys are within normal limits. The urinary bladder is contracted The colon, small bowel, and stomach are within normal limits without evidence of obstruction. The appendix is unremarkable. No evidence of free air or free fluid. IMPRESSION: No acute findings in the abdomen at 2158 Reported and signed by: Ole Goldberg M.D. CC: Dylan Young MD Technologist:Jazmin Massey RT(R); FAMILIA Staton CTDI: DLP: Trnscb Date/Time: 03/25/2019 (2157) t.SDR.VTL Orig Print D/T: S: 03/26/2019 (0047) PAGE 1 Signed Report - CT CHEST W/[id number] 21:56:00 Name: ASIA MARI [facility] : 1965 Age/S: 53 / M [address] [facility] Unit #: [id number] Loc: [place] [address] Phys: Dylan Young MD Acct: [id number] Dis Date: Status: [facility] ER PHONE #: [phone] Exam Date: 03/25/20192141 FAX #: [phone] Reason: sternal pain after fall EXAMS: CPT CODE: [id number] CT CHEST W/CONTRAST 98688 REASON FOR EXAM: sternal pain after fall EXAM ORDER DATE: 03/25/2019 6:47 PM Ordering Jc: Dylan Young MD PROCEDURE: - CT CHEST W/CONTRAST FINDINGS: CT images of the chest were obtained with IV contrast. Reconstructed sagittal and coronal images of the chest were provided for interpretation. Dose modulation, iterative reconstruction, and/or weight based adjustment of the MA/KV was utilized to reduce the radiation dose to as low as reasonably achievable. Intravenous contrast: 100cc of Omnipaque 370. The heart size is within normal limits. No evidence of pericardial effusion The thoracic aorta is unremarkable. No evidence of dissection or aneurysmal dilatation. No filling defect seen within the main or lobar pulmonary arteries to suggest pulmonary embolus. No evidence of mediastinal or hilar adenopathy. The lungs are clear. No evidence of pleural effusion. The thoracic spine is unremarkable IMPRESSION: No acute findings in the chest. The sternum is intact. at 2156 Reported and signed by: Ole Goldberg M.D. CC: Dylan Young MD Technologist:Jazmin LOJA(R); FAMILIA Staton CTDI: DLP: Trnscb Date/Time: 03/25/2019 (2155) t.SDR.VTL Orig Print D/T: S: 03/26/2019 (0047) PAGE 1 Signed Report - XR L-SPINE 2/3 [id number] 19:47:00 FAX: Dylan Young MD [phone] [place]: St: REG Name: ASIA VCITORIA [facility] : [birth year] Age/S: 53/M [address] [facility] Unit #: [id number] Loc: [place] [address] Phys: Dylan Young MD Acct: [id number] Dis Date: Status: REG ER PHONE #: [phone] Exam Date: 03/25/20191933 FAX #: [phone] Reason: BACK PAIN EXAMS: CPT CODE: [id number] XR L-SPINE 2/3 VIEWS 28773 REASON FOR EXAM: BACK PAIN EXAM ORDER DATE: 03/25/2019 6:47 PM Ordering Jc: Dylan Young MD PROCEDURE: - XR L-SPINE 2/3 VIEWS FINDINGS: 3 views of the lumbar spine were obtained. There is n ormal alignment of the lumbar spine. The vertebral bodies are unremarkabl e in size and shape. Minimal narrowing of L3-4 and L4-5 disc spaces No evidence of fracture. IMPRESSION: Degenerative changes at L 3-4 and L4-5. No acute findings at 194 Reported and signed by: Ole Goldberg M.D. CC: Dylan Young MD Technologist: GENTRY HAIRSTON [facility] Date/Time/By: 03/25/2019 (1946) : By: AndraeL Orig Print D/T: S: 03/25/2019 (1949) PAGE 1 Claudia d Report - XR HAND 3 + V [id number] 19:45:00 FAX: Dylan Young MD [phone] [place]: B St: REG Name: ASIA VICTORIA [facility] : [birth year] Age/S: 53/M [address] [facility] Unit #: [id number] Loc: [place] [address] Phys: Dylan Young MD Acct: [id number] Dis Date: Status: REG ER PHONE #: [phone] Exam Date: 03/25/2019 193 FAX #: [phone] Reason: HAND PAIN EXAMS: CPT CODE: [id number] XR HAND 3 + [place] LT [address] REASON FOR EXAM: HAND PAIN EXAM ORDER DATE: 03/25/2019 6:47 PM Ordering Jc: Dylan Young MD PROCEDURE: - XR HAND 3 + V LT FINDINGS: 3 views of the left hand were obtained. The osseous structures are unremarkable in size and shape, aside from minimal deformit y of the distal tip at the left 5th digit. The joint spaces are maintained . The phalanges are intact. The carpal and metacarpal bones are unremarka ble. There is normal alignment of the radiocarpal joint space IMPRESSION: Probable chronic fracture of the distal tip of the left 5th digit. No acute osseous abnormality at 1945 Reported and signed by : Ole Goldberg M.D. CC: Dylan Young MD Technologist: GENTRY HAIRSTON Trnnyrd Date/Time/By: 03/25/2019 (1944) : By: Beto.VTL Orig Print D/T: S: 03/25/2019 (1947) PAGE 1 Signed Report - XR T-SPINE 3 [id number] 19:43:00 FAX: Dylan Young MD [phone] [place]: B St: REG Name: ASIA VICTORIA [facility] : [birth year] Age/S: 53/M [address] [facility] Unit #: [id number] Loc: [place] [address] Phys: Dylan Young MD Acct: [id number] Dis Date: Status: REG ER PHONE #: [phone] Exam Date: 03/25/2019 193 FAX #: [phone] Reason: BACK PAIN EXAMS: CPT CODE: [id number] XR T-SPINE 3 VIEWS 46387 REASON FOR EXAM: BACK PAIN EXAM ORDER DATE: 03/25/2019 6:47 PM Ordering Jc: Dylan Young MD PROCEDURE: - XR T-SPINE 3 VIEWS FINDINGS: 3 views of the thoracic spine were obtained. There is normal alignment of the thoracic spine. The vertebral bodies are unr emarkable in size and shape. The disc spaces are maintained. No evidence of fracture. IMPRESSION: Unremarkable thoracic spine at 1943 Reported and signed by: Ole Goldberg M.D. CC: Ra adeel Young MD Technologist: GENTRY HAIRSTON RT Trnscrd Date/Time/By: 03/25/2019 (1942) : By: Reginald Orig Print D/T: S: 03/25/2019 (1945) PAGE 1 Signed Report - CT MAXIFAC W/O [id number] 19:11:00 Name: ASIA MARI [facility] : 1965 Age/S: 53 / M [address] [facility] Unit #: [id number] Loc: [place] [address] Phys: Dylan Young MD Acct: [id number] Dis Date: Status: REG ER PHONE #: [phone] Exam Date: 03/25/2019 190 FAX #: [phone] Reason: L jaw pain EXAMS: CPT CODE: [id number] CT MAXIFAC W/O CNT 85705 REASON FOR EXAM: L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 Value Reference Range Interpretation Comments TROPONIN-I (test code = TROPI) <0.015 ng/mL 0-0.045 N OR REQUEST CANCEL OF HEPATIC PANEL V.LAB.NM 721- XR FINGER(S) 2+V LT 2019-02-27 17:42:00 FAX: Juliann Vallejo [phone] [place]: B St: REG Name: ASIA VICTORIA [facility] : [birth year] Age/S: 53/M [address] [facility] Unit #: [id number] Loc: [place] [address] Phys: Juliann Garcia MD Acct: [id number] Dis Date: Status: REG ER PHONE #: [phone] Exam Date: 02/27/2019 1707 FAX #: [phone] Reason: PAIN EXAMS: CPT CODE: [id number] XR FINGER(S) 2+V LT 39243 CLINICAL HISTORY: PAIN TECHNIQUE: 3 views of the left hand pinky finger COMPARISON: None FINDINGS: No acute fracture or dislocation. Bony trabecular pattern is unremarkable. No cortical destruction or periosteal reaction. There is a corticated osseous body adjacent to the tuft of the distal phalanx of the pinky which may be sequela from a remote injury. Add itionally there is deformation of the tuft. There is narrowi ng of the visualized interphalangeal joint spaces suggesting osteoarthrosi s. IMPRESSION: No acute bony injury in the left pinky. Deformity of the tuft with corticated osseous body robinson cent to the tuft likely represents sequela from a remote trauma. 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 Examination acquired within 24 hours of arrival. Automated exposure control for dose reduction. COMPARISON: None FINDINGS: No acute hemorrhage. No intracranial mass, mass effect, or midline shift. No CT evidence of acute infarct. An-white matter differentiation is preserved. No hydrocephalus. No extra-axial fluid collection. Visualized paranasal sinuses are clear. Mastoid air cells and middle ear cavities are clear. Orbital contents are unremarkable. Calvarium and skull base are intact. IMPRESSION: Negative CT head. at 1740 Reported and signed by: Johnnie Caballero MD CC: Adeel Thompson Technologist:SHANNA PELAEZ CTDI: DLP: Trnscb Date/Time: 02/27/2019 (1740) t.SDR.RR31 Orig Print D/T: S: 02/27/2019 (6116) PAGE 1 Signed Report - XR CHEST 1 [id number] 17:34:00 FAX: Adeel TravisP [phone] [place]: B St: REG Name: eJre MCCAULEYASIAAMBER KEEN [facility] : [birth year] Age/S: 53/M [address] Unit #: [id number] Loc: [place] [address] Phys: Adeel ThompsonP Acct: [id number] Dis Date: Status: REG ER PHONE #: [phone] Exam Date: 02/27/2019 7546 FAX #: [phone] Reason: WEAKNESS EXAMS: CPT CODE: [id number] XR CHEST 1 V 11282 REASON FOR EXAM: WEAKNESS Exam Order Date: 02/27/2019 4:28 PM Ordering MLaura: Adeel Thompson PROCEDURE: - XR CHEST 1 V COMPARISON: AP chest radiograph March 16, 2013 FINDINGS: The lungs are clear. There is no pleural effusion or pneumothorax. Pulmonary vascu larity is within normal limits. Cardiomediastinal silhouette is no rmal in size for technique. The mediastinal contours are within normal daniels its. Musculoskeletal structures are within normal limits. The visualized upper abdomen is within normal limits. IMPRESSION: No acute cardiopulmonary process. Electronically Sig meredith by Johnnie Caballero MD on 02/27/2019 at 4355 Reported and signed by: Johnnie Caballero MD CC: Adeel Thompson Technologist: RT ZACK(Sharon) Trnscrd Date/Time/By: 02/27/2019 (6822) : By: [email or web address] Orig Print D/T: S: 02/27/2019 (6820) PAGE 1 Signed Report BASIC METABOLIC [id number] 17:25:00* Test Item Value Reference Range Interpretation Comments SODIUM (test code = NA) 138 mmol/L 136-145 N POTASSIUM (test code = K) 3.6 mmol/L 3.5-5.1 N CHLORIDE (test code = CL) 105.0 mmol/L 98-107 N CARBON DIOXIDE (test code = CO2) mmol/L 21-32 ANION GAP (test code = GAP) 10-20 GLUCOSE (test code = GLU) mg/dL 74-106 BLOOD UREA NITROGEN (test code = BUN) mg/dL 7-18 GLOMERULAR FILTRATION RATE (test code = GFR) mL/min >=60 CREATININE (test code = CREAT) mg/dL 0.7-1.3 BUN/CREATININE RATIO (test code = BUN/CREA) 10-20 CALCIUM (test code = CA) mg/dL 8.5-10.1 OR REQUEST CANCEL OF HEPATIC PANEL V.LAB.SC [id number] FUNCTION PANEL 2019-02-27 17:25:00* Test Item Value Reference Range Interpretation Comments TOTAL PROTEIN (test code = PROT) gram/dL 6.4-8.2 ALBUMIN (test code = ALB) g/dL 3.4-5.0 GLOBULIN (test code = GLOB) gram/dL 2.7-4.2 ALBUMIN/GLOBULIN RATIO (test code = A/G) 0.75-1.50 BILIRUBIN TOTAL (test code = BILT) mg/dL 0.0-1.0 BILIRUBIN DIRECT (test code = BILD) mg/dL 0.0-0.20 SGOT/AST (test code = AST) IUnit/L 15-37 SGPT/ALT (test code = ALT) IUnit/L 12-78 ALKALINE PHOSPHATASE TOTAL (test code = ALKP) IUnit/L 45-117 OR REQUEST CANCEL OF HEPATIC PANEL V.LAB.NM [id number] 17:25:00* Test Item Value Reference Range Interpretation Comments TROPONIN-I (test code = TROPI) ng/mL 0-0.045 OR REQUEST CANCEL OF HEPATIC PANEL V.LAB.NM 861827RWW W/O [id number] 17:04:00* Test Item Value Reference Range Interpretation Comments WHITE BLOOD CELL (test code = WBC) 8.6 K/mm3 4.5-12.5 N RED BLOOD CELL (test code = RBC) 5.38 mill/mm3 4.0-5.8 N HEMOGLOBIN (test code = HGB) 14.9 gram/dL 13.0-17.5 N HEMATOCRIT (test code = HCT) 44.3 % 42.0-52.0 N MEAN CELL VOLUME (test code = MCV) 82.3 fL 80-98 N MEAN CELL HGB (test code = MCH) 27.7 picogram 27.0-33.0 N MEAN CELL HGB CONCETRATION (test code = MCHC) 33.6 gram/dL 33.0-36. 0 N RED CELL DISTRIBUTION WIDTH (test code = RDW) 12.9 % 11.6-16. 2 N PLATELET COUNT (test code = PLT) 239 K/mm3 150-450 N MEAN PLATELET VOLUME (test code = MPV) 9.3 fL 6.7-11.0 N CBC W/O [id number] 16:55:00* Test Item Value Reference Range Interpretation Comments WHITE BLOOD CELL (test code = WBC) K/mm3 4.5-12.5 RED BLOOD CELL (test code = RBC) mill/mm3 4.0-5.8 HEMOGLOBIN (test code = HGB) 14.9 gram/dL 13.0-17.5 N HEMATOCRIT (test code = HCT) 44.3 % 42.0-52.0 N MEAN CELL VOLUME (test code = MCV) fL 80-98 MEAN CELL HGB (test code = MCH) picogram 27.0-33.0 MEAN CELL HGB CONCETRATION (test code = MCHC) gram/dL 33.0-36. 0 RED CELL DISTRIBUTION WIDTH (test code = RDW) % 11.6-16. 2 PLATELET COUNT (test code = PLT) K/mm3 150-450 MEAN PLATELET VOLUME (test code = MPV) fL 6.7-11.0 CHEM [id number] 21:53:001.6[facility] HNNJH6937-14-93 20:27:00* Test Item Value Reference Range Interpretation Comments B/C Ratio (test code = B/C Ratio) 14 1 6-25 [facility] HermannCHEM [id number] 20:27:00* Test Item Value Reference Range Interpretation Comments A/G Ratio (test code = A/G Ratio) 1.0 1 0.7-1.6 [facility] VNWEC5299-12-29 20:27:003.6[facility]annCHEM PANEL 2018-04-04 20:27:0013.0[facility]ann[facility] KVBXY2584-89-09 20:27:0096[facility]annCHE[facility] ZHAFM2877-73-79 20:27:80764Adputlfl HermannCHEM PLCNH4135-29-38 20:27:000.92[facility]annCHEM WEZQL0723-99-04 20:27:0018[facility]annCHE[facility] SJGXW4559-18-51 20:27:003.7[facility]annCHE[facility] MHQKJ3502-97-34 20:27:008.6 [facility] HermannCHEM UZLDE7719-76-14 20:27:0037[facility]annCHE[facility] PANEL 2018-04-04 20:27:007.3[facility]annCHE[facility] NBKDU2906-64-74 20:27:0095[facility]annCHEM UEFQV3874-30-18 20:27:000.9[facility]annCHE[facility] RQHMA7125-89-63 20:27:37707Rapqrbju HermannCHEM BUJQN4005-22-84 20:27:004.0[facility]annCHE[facility] ZDTLM8847-26-04 20:27:20655Veziyshf HermannCHEM HEFHK4739-83-78 20:27:0027 [facility]ann[facility] TAHDL4595-18-78 20:27:0013[facility]annHEMATOLOGY 2018-04-04 20:27:0010.1[facility] RxzmannYQMWUSKVAK6766-09-97 20:27:0042.4[facility] DhkxncnNIDINXSTND6892-99-45 20:27:0081.4[facility] NxwvdrxTBOFPUDOZX2807-01-33 20:27:0014.6[facility] YctaihuHKYOTCLRAK5346-77-43 20:27:005.21[facility] VJMIICOBXW2418-79-64 20:27:00* Test Item Value Reference Range Interpretation Comments MCH (test code = MCH) 28.1 pg 27.0-31.0 [facility] DoogsnmFNKTJAMYVW7174-95-69 20:27:0034.5[facility]annHEMATOLOGY 2018-04-04 20:27:008.0[facility] RfqpnapKDKRWMPDIJ0035-13-39 20:27:26104Lwygbdwg SwsxxgxURMOKIIBTT7265-99-48 20:27:0013.4[facility] EejgbxlSVVUNJYWAR0325-26-31 20:27:005.3[facility] XjvwvfhBGMACKNNBP0304-33-63 20:27:0073.2[facility] CYCFJRSHRT6367-75-83 20:27:001.9[facility] ZhptclzZISGGHXCUT0763-29-73 20:27:00 19.3[facility] UivifgnVIEONZQXWG2165-08-33 20:27:000.3[facility]annHEMATOLOGY 2018-04-04 20:27:002.0[facility] DdifbxqAMJRMTUESE8179-29-83 20:27:000.5[facility] WgtxzdpRMTDSHDPIB3361-93-99 20:27:007.4[facility] RcqxfxsKDQVYHGARV6667-93-71 20:27:000.2[facility]ann[facility]INE AND DYFRZ1615-21-48 08:18:56043Jvxhtmgc Bill URINE AND GMYYM1173-07-75 08:18:00Negative (03/27/17 3:18 AM)[facility] URINE AND WQSZW7473-84-96 08:18:00<1[facility] AND BUIPG2340-01-84 08:18:00Clear (03/27/17 3:18 AM)[facility] HCXUG1712-46-77 08:18:001.007[facility] AND KJAQX8661-71-49 08:18:00Light Yellow *NA*(03/27/17 3:18 AM)[facility] FYQBF8825-31-35 08:18:006.0 [facility] CMHUU0124-66-50 08:18:00Negative (03/27/17 3:18 AM) [facility] CMSDO6092-10-20 08:18:00Negative (03/27/17 3:18 AM) [facility] RKNRX5569-89-88 08:18:00Negative *NA*(03/27/17 3:18 AM) [facility]annCARDIAC HQLQCWV7193-80-50 06:59:00<0.9[facility]annCARDIAC IYZMICB2543-72-98 06:59:0019[facility]annCARDIAC DDGVMSQ3689-93-07 06:59:00< 0.5[facility]annCARDIAC QRUIWMH0571-59-56 06:59:0058[facility]annCARDIAC LCINBMQ4030-59-29 06:59:00<0.02[facility]annCHEM SDVMH6824-40-63 06:59:09097 [facility]annCHE[facility] TEEFM8795-24-02 06:59:0092[facility]annCHEM PANEL 2017-03-27 06:59:000.96[facility]annCHEM BTGNM0606-46-96 06:59:0030[facility]annCHEM HIBRL7302-90-17 06:59:007.8[facility]annCHEM VSMXZ0489-38-89 06:59:0010[facility]annCHE[facility] XOBOO8871-96-06 06:59:99108Uvzlvrqj HermannCHEM UXQVK5910-48-58 06:59:000.3[facility]annCHEM JFFJT8317-81-91 06:59:27702 [facility]annCHE[facility] XYLRA1069-47-96 06:59:003.8[facility]annCHEM PANEL 2017-03-27 06:59:0016[facility]annCHEM FRROM2209-05-11 06:59:0046[facility]annCHEM HCVJN5797-42-85 06:59:001.0[facility]annCHEM MDSUR2568-50-03 06:59:0010.8[facility]annCHEM CLOGE9120-16-93 06:59:004.0[facility]annCHE[facility] PIYXN4230-14-42 06:59:0010[facility]annCHEM JRNCQ6633-19-64 06:59:009.2 [facility]annCHE[facility] DSONU8489-13-89 06:59:003.8[facility] HermannCHEM PANEL 2017-03-27 06:59:47109Mokugsdy HermannCHEM JDIBK0134-42-49 06:59:36611Akffjupb XccromtWRHPRDUJHZ5363-91-31 06:59:000.6[facility] StqphqjTNLWAEMEFG4246-89-43 06:59:000.1[facility] RrvwsjtNNZIMTCPLS0863-77-38 06:59:0020.8[facility] IKXJUNSKNU1198-44-38 06:59:0072.7[facility] TdimjdcRZLTVQCTEV2711-87-94 06:59:00 5.2[facility] UuahmljPHWXWIHPSW7843-87-25 06:59:000.8[facility] HermannHEMATOLOGY 2017-03-27 06:59:002.2[facility] GxufurdXEIAZDOAVN7998-96-87 06:59:007.8[facility] UfkvpzlIVOIFFDOYY8142-09-04 06:59:000.5[facility] PldkspbZQOQLHMZTJ6662-90-15 06:59:0013.2[facility] UzyvsxxAPMHUNYXVQ5961-28-12 06:59:007.5[facility] WWNMFKTMSI3751-57-60 06:59:21716Jzqgxfwx NhagrgqHLVMURQPBC4426-23-84 06:59:00* Test Item Value Reference Range Interpretation Comments MCH (test code = MCH) 28.2 pg 27.0-31.0 [facility] OhomujzOLAXJBAWHH6188-08-87 06:59:0035.1[facility]annHEMATOLOGY 2017-03-27 06:59:0014.5[facility] MfybvvcQCOCGKOMGC5950-15-24 06:59:005.15[facility] CbinxhfZSPQXGETID5727-83-83 06:59:0080.5[facility] RdwyxbvWFKVDIREUP4748-37-20 06:59:0041.4[facility] GsnqivrJRQUVOHIYF1642-22-90 06:59:0010.8[facility] DRUG HCSPUE6838-64-54 23:06:00Negative *NA*(01/13/17 6:06 PM)[facility] ZFRQIE2051-52-09 23:06:00Negative *NA*(01/13/17 6:06 PM)[facility] YCOLLV9624-96-89 23:06:00See Note *NA*(01/13/17 6:06 PM)[facility]DR[facility] HSETIA6319-10-82 23:06:00Negative *NA*(01/13/17 6:06 PM)[facility]DR[facility] VZHZRM3384-37-76 23:06:00Negative *NA*(01/13/17 6:06 PM)[facility] IKEWIC7950-81-48 23:06:00Negative *NA*(01/13/17 6:06 PM)[facility] IJHEHB9076-18-26 23:06:00Negative *NA*(01/13/17 6:06 PM)[facility]DR[facility] IKTMKK3760-14-96 23:06:00Negative *NA*(01/13/17 6:06 PM)[facility] QAECW0821-92-30 23:06:00<1[facility] AND TLCAU3628-27-90 23:06:00<1 [facility] FJNWF3747-09-84 23:06:96669Pjlyxjpr [facility]annUR[facility] AND XDZXC2906-11-99 23:06:00Negative (01/13/17 6:06 PM)[facility] STOOL 2017-01-13 23:06:00Negative (01/13/17 6:06 PM)[facility] STOOL 2017-01-13 23:06:00Negative *NA*(01/13/17 6:06 PM)[facility] 2017-01-13 23:06:00Negative (01/13/17 6:06 PM)[facility] 2017-01-13 23:06:005.0[facility] BPTPG7243-91-14 23:06:00Clear (01/13/17 6:06 PM)[facility] FAADZ5120-93-47 23:06:001.026[facility] IVKVI8116-36-88 23:06:00Yellow *NA*(01/13/17 6:06 PM)[facility]annCARDIAC KEVAEYN6275-63-79 23:03:00<1.0[facility] ENZYMES 2017-01-13 23:03:0051[facility] NLUWMHX5289-79-26 23:03:00<0.5 [facility] BHDPHMM6212-43-32 23:03:00<0.02[facility]annCHEM PRHNE8156-70-43 23:03:0053[facility]annCHEM XTJMX7634-58-98 23:03:000.88 [facility]annCHE[facility] CENLT3780-67-67 23:03:007.7[facility]annCHEM PANEL 2017-01-13 23:03:77664Dbwyvyat HermannCHEM UWMHK7427-04-29 23:03:000.4[facility]annCHEM OVPPM2408-33-25 23:03:0031[facility]annCHEM OLBSE7743-49-40 23:03:0015[facility]annCHE[facility] XYWDP4307-75-88 23:03:003.9[facility]annCHEM MADKJ1423-01-15 23:03:001.0[facility]annCHE[facility] TSYHF1582-72-58 23:03:96068 [facility]CHE[facility] ZXJJO1416-87-71 23:03:0030[facility]annCHE[facility] PANEL 2017-01-13 23:03:0012.2[facility]annCHEM JIKAK4082-55-79 23:03:009.3[facility]annCHEM XBSHV6555-54-19 23:03:003.8[facility]annCHEM ZURYO9798-49-11 23:03:39370Fnhkbdor HermannCHEM MNVZT1005-80-04 23:03:96548Cwgdzunf HermannCHEM WVJPM8336-17-07 23:03:0013[facility]annCHEM PTLIH5906-82-01 23:03:18134 [facility]annCHE[facility] KYHVX9097-90-45 23:03:004.2[facility]annHEMATOLOGY 2017-01-13 23:03:006.6[facility] CssqgutNPQDQVPMSA3901-55-07 23:03:002.3[facility] BryrwwvRAVSFCPPUA5023-91-62 23:03:000.9[facility] YmqknhnJUSAZRIQNS4686-29-28 23:03:000.1[facility] GkhwiwrTNKVCRODQF8656-90-19 23:03:000.2[facility] IRRBTPUDOR4226-77-30 23:03:002.4[facility] WkfjokkQVNLOJYWFR7185-06-56 23:03:000.6 [facility] WtsndkuCNJIHPIIWR9214-68-80 23:03:0066.6[facility]annHEMATOLOGY 2017-01-13 23:03:006.1[facility] SowiyxvJTEQESOYGO3086-89-61 23:03:0024.1[facility] GzyfsbdNUAYPYSHSN0882-42-16 23:03:005.30[facility] NoizfyhIVDDTWYXUH5334-71-69 23:03:009.9[facility] IhmgypnQHRLHOIEEG3287-05-23 23:03:007.5[facility] GXMPQRODFK0453-80-35 23:03:79817Oezltdwz BxxbvbpKQZLYGPSOZ8513-18-01 23:03:00 13.1[facility] CecfemnQSYGUXBQBD2235-56-19 23:03:0034.9[facility]annHEMATOLOGY 2017-01-13 23:03:00* Test Item Value Reference Range Interpretation Comments MCH (test code = MCH) 27.9 pg 27.0-31.0 [facility] RpstlujYVGCJZSGJR6838-87-78 23:03:0014.8[facility]annHEMATOLOGY 2017-01-13 23:03:0080.0[facility] AkuhsrdWAEVBBMNJD4038-27-20 23:03:0042.4[facility] PAUZR5906-42-55 00:30:00Negative (07/10/16 6:30 PM)[facility] EDAGO4977-80-55 00:30:001[facility] STOOL 2016-07-11 00:30:00Negative *NA*(07/10/16 6:30 PM)[facility] ZYXAW7840-99-98 00:30:00Negative (07/10/16 6:30 PM)[facility] SOAHZ5297-71-14 00:30:00Negative (07/10/16 6:30 PM)[facility] OKUKM1185-38-46 00:30:00Clear (07/10/16 6:30 PM)[facility] STOOL 2016-07-11 00:30:001.003[facility] VKJDH5044-71-50 00:30:007.0 [facility]annCARDIAC GNOSBBL3892-02-07 21:47:00<1.1[facility]annCARDIAC IQIVIJD7305-22-62 21:47:00<0.02[facility]annCARDIAC MCCNJGM1753-78-01 21:47:00<0.5[facility]annCARDIAC OJDXZUM7410-34-61 21:47:0045[facility] CHEM SUUXD1554-63-67 21:47:0014[facility]annCHEM ZGHGQ6122-59-12 21:47:000.4 [facility]annCHEM PZRRH3566-80-84 21:47:0090[facility]annCHEM PANEL 2015-11-13 21:47:0020[facility]annCHEM ZCZKE7524-34-22 21:47:001.0[facility]annCHEM YGJPB6028-79-64 21:47:004.0[facility]annCHEM VUALR4879-76-96 21:47:0012[facility]annCHEM JGFMN3371-70-16 21:47:001.12[facility]annCHEM WINHZ7738-04-67 21:47:0033[facility]annCHEM YEZZD4858-23-64 21:47:008.0 [facility]annCHEM EUQAT5680-11-77 21:47:0077[facility]annCHEM PANEL 2015-11-13 21:47:004.0[facility]annCHEM RUEBT8846-64-26 21:47:0013.1[facility]annCHEM FSEQM9608-45-60 21:47:009.1[facility]annCHEM FAWFG6526-44-59 21:47:0028[facility]annCHEM SIWOS0050-69-42 21:47:004.1[facility]annCHEM DBXAP9688-36-16 21:47:91517Hahjkdhc HermannCHEM LHTOP8176-77-70 21:47:96493 [facility]annCHE[facility] YUNZB3861-41-56 21:47:05374Xafgueib HermannHEMATOLOGY 2015-11-13 21:47:000.0[facility] HxoknraDLCMQZESIH2560-48-79 21:47:001.5[facility] QjjvnzxENAIFVNBUF9163-15-88 21:47:000.0[facility] GwshwiqJIJAJQVMEB2714-62-27 21:47:000.7[facility] EacvlpvYRMUVDGRYD6357-85-80 21:47:003.7[facility] SZVMYMDKON3641-71-66 21:47:000.5[facility] OvnwrjhCOFWTYHNNW8974-06-22 21:47:000.7 [facility] NbaunihNRTUKFXABZ7336-48-06 21:47:0012.3[facility] HermannHEMATOLOGY 2015-11-13 21:47:0025.4[facility] WxbkdmvIWDRIHYFMQ8612-49-02 21:47:0061.1[facility] TgtbjugGJAJJBGBDE7915-46-68 21:47:0013.4[facility] VemaygcSPPMHVMSYO1421-67-80 21:47:007.5[facility] IqugvsjCTXQMMCFTP1928-30-54 21:47:18818Jbkjlsvo Bill PWPBSZZJZL7087-21-17 21:47:0083.0[facility] VqmepuaONGVWSVLTX0270-23-67 21:47:00 32.5[facility] BwfhqlrXCQTQSDFNL9221-25-79 21:47:00* Test Item Value Reference Range Interpretation Comments MCH (test code = MCH) 26.9 pg 27.0-31.0 [facility] JhonmryMRZAEWDLUZ7037-98-16 21:47:0045.6[facility] HermannHEMATOLOGY 2015-11-13 21:47:0014.8[facility] QlyiccqBSDYINSPEA1803-92-64 21:47:005.50[facility] ZqhthvwENGQSLBFRT9063-63-10 21:47:006.0[facility]annCHEM BHHBB2964-93-40 22:12:009.3[facility]annCHEM KGCJK9288-65-46 22:12:003.8[facility]annCHEM ZXURP5487-01-54 22:12:13758Akptuzdu HermannCHEM MNMFP1871-62-42 22:12:96265 [facility]annCHE[facility] BZYAP6479-73-01 22:12:0086[facility]annCHEM PANEL 2015-09-12 22:12:001.02[facility]annCHEM DLXZY5560-48-93 22:12:0027[facility]annCHEM POYAQ1459-86-98 22:12:30742Ywsiqwes HermannCHEM KSHYM2242-04-83 22:12:0018[facility]annCHEM KQCFZ4051-01-34 22:12:0011.8[facility] KCVTJCOWVQ9196-66-88 22:12:005.55[facility] YpdhrzvPAACBJCUAV8072-12-54 22:12:00 15.1[facility] ClhxpdgBUAZXEKUQF9357-41-86 22:12:0010.5[facility] HermannHEMATOLOGY 2015-09-12 22:12:0045.8[facility] KbqthyvQCVQLTSXHI9597-13-98 22:12:0082.6[facility] QoiridjUCEFHBMPUO3362-06-07 22:12:007.8[facility] LilgvzlKYVWTPSNUP6793-61-10 22:12:0012.9[facility] EakaybfMXEIBHJIHY5598-06-53 22:12:38649[facility]ztd [place] RCDOWMKLBG3092-32-36 22:12:00* Test Item Value Reference Range Interpretation Comments MCH (test code = MCH) 27.3 pg 27.0-31.0 [facility] IhzeqbsMFYSOSWPJV9215-19-41 22:12:0033.0[facility] HermannHEMATOLOGY 2015-09-12 22:12:007.4[facility] OabvqdrLYEAQLDFSL7966-28-18 22:12:002.2[facility] McycbspWCBJPMTDHC7190-96-78 22:12:000.3[facility] CnsnzecKSEAQQRXBN3588-84-74 22:12:002.7[facility] QbmfbivAZPIVHZWSC8681-70-13 22:12:000.6[facility] ZIAZZUXVGN7866-75-58 22:12:000.3[facility] WzprfiqYAYPFURFPO8357-43-85 22:12:000.0 [facility] SicoidvVGYLKWKCVL6313-40-13 22:12:005.8[facility] HermannHEMATOLOGY 2015-09-12 22:12:0070.4[facility] OvjnaevERXMTGBVSO6768-21-32 22:12:0020.8[facility] HermannVIRAL - WFXXIJCO9215-29-65 22:12:00Negative (09/12/15 4:12 PM)[facility] HermannVIRAL - RDGUOYUD8548-87-99 22:12:00Negative (09/12/15 4:12 PM)[facility]annCHEM AOOAU0631-12-22 20:20:38901Gbdabrhz HermannCHEM HHAUW5904-53-92 20:20:001.1[facility]annCHEM MRAJJ0834-61-99 20:20:003.4[facility]annCHEM UIIET3465-06-54 20:20:0013[facility]annCHEM HQHLO2478-85-58 20:20:0012.9 [facility]annCHE[facility] TAEOG5456-17-90 20:20:003.8[facility]annCHEM PANEL 2015-06-06 20:20:007.2[facility]annCHEM ORVOK3992-23-16 20:20:0027[facility]annCHEM VLZVZ9031-89-60 20:20:10156Tejhpgko HermannCHEM YMWJH0715-90-28 20:20:0012[facility]annCHEM JLOWZ3604-17-36 20:20:0086[facility]annCHEM GMIWF8783-57-57 20:20:0044[facility]annCHEM BMQYQ5272-60-25 20:20:0019 [facility]annCHE[facility] LJIHO0876-58-07 20:20:000.5[facility]annCHEM PANEL 2015-06-06 20:20:16940Yqceecgf HermannCHEM AGOWB6879-17-81 20:20:008.9[facility]annCHEM EPRRW7058-93-30 20:20:30536Vpeseojr HermannCHEM QKBXR2691-10-08 20:20:003.9[facility]annCHEM VYDKV4283-47-06 20:20:000.9[facility]annCHEM IUCYW3097-83-87 20:20:25878Cltnrqku IbwlddgLECOOBVKST5887-78-93 20:20:005.03 [facility] JrfanaoULCYEKMDLU6519-37-85 20:20:0014.0[facility]annHEMATOLOGY 2015-06-06 20:20:0041.6[facility] UwvchkzSVPXOAFWTH8490-60-18 20:20:007.3[facility] SotefkoKEZECVNQMB2443-00-66 20:20:0082.8[facility] YyvlfjuDYTVYJURHO1884-92-78 20:20:29838Vgengliv CmmoeevTSMQOCWUKF0201-99-16 20:20:007.3[facility] XZJJZEIZAZ9741-22-44 20:20:0012.4[facility] TmkgogtSYCORKPNTI2146-67-72 20:20:00 33.6[facility] HxyegtaLAGXIJYAQI5161-39-84 20:20:00* Test Item Value Reference Range Interpretation Comments MCH (test code = MCH) 27.8 pg 27.0-31.0 [facility] SokwhysMDGPBBQDWS2049-19-88 20:20:0069.5[facility] HermannHEMATOLOGY 2015-06-06 20:20:005.4[facility] KhpvnjpGITPOPKMPR2292-00-66 20:20:0021.7[facility] AmutzudMDECXLAJOS2248-34-69 20:20:000.3[facility] ZcnyektADWDIYYKWP2517-80-17 20:20:003.1[facility] MzjcemlBEUYVDYDQC1706-96-03 20:20:005.1[facility] CCVZXGSFXS4446-51-26 20:20:001.6[facility] PaovgvkIISDCNXVGK1123-93-49 20:20:000.4 [facility] YpxpofbHUUTWOLXWP0994-96-06 20:20:000.0[facility] HermannHEMATOLOGY 2015-06-06 20:20:000.2[facility]annURINE AND EZTUW7910-90-72 21:00:00Negative (04/24/15 4:00 PM)[facility]annCARDIAC PXCSQQB7136-64-38 20:02:00<1.2[facility] HermannCARDIAC OWEVLDC4786-43-59 20:02:00<0.02[facility] HermannCARDIAC ENZYMES 2015-04-24 20:02:00<0.5[facility]annCARDIAC PUZXWIY1979-98-93 20:02:0041 [facility]annCHEM EVMKH3824-94-54 20:02:61637Ypxrnsii HermannCHEM PANEL 2015-04-24 20:02:0026[facility] HermannCHEM OGUEI2018-60-59 20:02:009.1[facility]annCHEM GYWCQ9769-92-64 20:02:40529Nkbmzbxh HermannCHEM SLLYH2911-13-28 20:02:003.9[facility]annCHEM JMVDH2216-02-75 20:02:0013.9[facility]annCHEM RVLFO7806-47-55 20:02:81088Xrggzvzp HermannCHEM BIBCH8260-93-75 20:02:16731 [facility]annCHE[facility] IRTOW2774-55-13 20:02:0014[facility] HermannCHEM PANEL 2015-04-24 20:02:000.9[facility] GhqllllNQHEINZDWO1161-57-81 20:02:000.3[facility] TjquobvJIZWPKVLTJ4623-05-38 20:02:000.1[facility] LcpbzrvAIWVUGMPYS5926-44-99 20:02:000.0[facility] SgkmrhgVSFOGDYBII7938-81-43 20:02:001.9[facility] ENDTPKUWSM5566-03-85 20:02:005.1[facility] PnabageSSWHGSLAHX6689-87-07 20:02:003.9 [facility] NmiznfhFDOETRXFAB6155-68-25 20:02:001.7[facility] HermannHEMATOLOGY 2015-04-24 20:02:000.2[facility] TnakuboOEWCLZORKD7580-28-52 20:02:0025.3[facility] HsuekngTQFIRYCDYY0262-21-22 20:02:0068.9[facility] WfqcfkdKCMSAQMFSO4708-17-78 20:02:005.18[facility] AeivhjpFXKLNVHRWI3079-40-70 20:02:00* Test Item Value Reference Range Interpretation Comments MCH (test code = MCH) 28.0 pg 27.0-31.0 [facility] LadplnaOFEKPZKVNK4114-24-91 20:02:0033.7[facility] HermannHEMATOLOGY 2015-04-24 20:02:32619Odfgqkde RivhfctSOGNBJOOGU4390-62-32 20:02:007.6[facility] GendargPKVBRDINZP9543-75-90 20:02:007.4[facility] YdiqimxOCANRZJTHF5306-14-40 20:02:0014.5[facility] OxcsvhdRDPYFNMUNV2949-62-88 20:02:0043.0[facility] TOWCXPRYRG5065-53-47 20:02:0083.0[facility] WwerkyzLHYIGEXJBB8317-26-49 20:02:00 13.4[facility] KffjuvmXYOUHEKOEM6195-87-60 20:02:00<2 (04/24/15 3:02 PM)[facility] AbgqrbeXZJGDTBQLJ9818-96-69 20:02:00<1.7[facility] HermannCARDIAC ENZYMES 2015-04-06 04:20:00<0.02[facility]annCARDIAC HBITUBM3481-43-47 01:20:00<0.02 [facility]annCARDIAC WPVITCC1618-44-70 01:20:0040[facility]annCARDIAC JKJIQHH2939-35-81 01:20:00<0.5[facility]annCARDIAC KNZFEXD3156-30-60 01:20:00 <1.2[facility] HermannCHEM STMIX1721-12-79 01:20:0017[facility]annCHEM PANEL 2015-04-06 01:20:0012.7[facility]annCHEM QPXUM1228-87-47 01:20:003.6[facility]annCHEM BQDQA3586-37-43 01:20:000.6[facility]annCHEM JXLSB8593-58-24 01:20:0069[facility]annCHEM RLNVE0503-63-98 01:20:008[facility]annCHEM VRCES1704-14-50 01:20:001.2[facility]annCHEM HSISA5121-37-42 01:20:004.2 [facility]annCHE[facility] JCFDM6727-87-04 01:20:007.8[facility]annCHEM PANEL 2015-04-06 01:20:0015[facility]annCHEM NNWBR6550-31-73 01:20:54247Doohubuc HermannCHEM LEKLF6429-48-27 01:20:0026[facility]annCHEM AKRVY8805-84-50 01:20:0026[facility]annCHEM MWKVA2412-39-28 01:20:78304Eorcbljb HermannCHEM LULKS2943-28-02 01:20:000.9[facility]annCHEM MUMXQ3535-21-76 01:20:07330 [facility]annCHEM MHPMQ1958-28-81 01:20:18037Qliumlfr HermannCHEM PANEL 2015-04-06 01:20:008.8[facility] HermannCHEM VUBKZ6917-69-41 01:20:003.7[facility] BzeeuxfXVUMGIADID9454-26-58 01:20:00<0.22[facility] SkuzwtiCRUILSQABU3393-50-62 01:20:00* Test Item Value Reference Range Interpretation Comments PTT (test code = PTT) 34.9 s 22.9-35.8 [facility] DbwybozZOPYOXVQKG7783-39-71 01:20:00* Test Item Value Reference Range Interpretation Comments PT (test code = PT) 13.5 s 12.0-14.7 [facility] KmynwhvLQRUBBPZRH9151-50-57 01:20:001.03[facility] HermannHEMATOLOGY 2015-04-06 01:20:007.9[facility] GtomamhNMBXPAZYNP7649-72-87 01:20:0013.1[facility] QfzhyniHJYBAYVDEQ6584-33-30 01:20:74813Kxkaxdfc HrznnxkVYKJVEVLFX1298-84-26 01:20:00* Test Item Value Reference Range Interpretation Comments MCH (test code = MCH) 28.0 pg 27.0-31.0 [facility] TjmhrnjHYPTHVUCYQ8709-36-27 01:20:0033.6[facility] HermannHEMATOLOGY 2015-04-06 01:20:0083.3[facility] LxczbyoBHCSUDETHM3059-78-96 01:20:0014.5[facility] VjmgtvmZZEOZDLONJ9588-48-27 01:20:0043.1[facility] HovdcntIQNIPMFDOM4234-94-98 01:20:008.7[facility] OxwufukNKSFBXZODS0849-70-03 01:20:005.17[facility] IUNYBSJVHS6497-16-06 01:20:000.0[facility] PdwmzauQAIIMGJETK9449-75-69 01:20:000.1 [facility] MwnnqhzGNJKXYGYEI1555-59-97 01:20:000.5[facility] HermannHEMATOLOGY 2015-04-06 01:20:001.1[facility] ImpisfjQCUQLXMLYE3537-79-29 01:20:005.4[facility] VaprggrGDBKEQDOGI9946-17-05 01:20:001.7[facility] NtrixryVLSMHFNZTL4494-24-48 01:20:006.4[facility] MkhwedwWTOQVBFVGY3827-59-36 01:20:000.3[facility] WZUEQOSYHI5056-89-08 01:20:0019.2[facility] DafseuvUHVELCWJAI3893-17-29 01:20:00 74.0[facility]annURINE AND FOINE4998-29-87 01:20:86733Npbnmwkf HermannURINE AND UQUAY4855-74-20 01:20:00Negative (04/05/15 8:20 PM)[facility] TGWGG7363-13-60 01:20:001.023[facility]UR[facility] AND YWIOK0998-18-29 01:20:00 Negative (04/05/15 8:20 PM)[facility] XDBDC8967-17-27 01:20:00 Negative (04/05/15 8:20 PM)[facility] QEZLY8623-63-89 01:20:00 Clear (04/05/15 8:20 PM)[facility] GERGC3244-90-00 01:20:00Yellow *NA*(04/05/15 8:20 PM)[facility] YDJLP5841-14-77 01:20:005.0 [facility] NWFRH3125-88-68 01:20:00Negative *NA*(04/05/15 8:20 PM) [facility] TRYWB2233-45-76 01:20:001[facility]UR[facility] AND CQGOW7239-09-67 01:20:00<1[facility] CdklauyRVMFCYXJGXGQ3551-09-29 20:03:009.2 [facility] MdhamhqUIOBBQRREDTU6539-59-27 20:03:26490Ptpxzpdm HermannELECTROLYTES 2014-11-10 20:03:71661Kimktygh DpkjifcDTIIVNXMSVEJ3866-04-67 20:03:000.8[facility] NpjrjwzTUBLVTUUMOTN1649-80-73 20:03:003.2[facility] ZwryvuoJGNJUCDQKZAS7132-25-09 20:03:41787Sywxwxiv ZdhzbggXPDZOLQXDIYC3367-27-91 20:03:009.0[facility] JZMOGQXSJMIG3433-66-33 20:03:0028[facility] HhiqgwhJQDDQMZLDCAI5870-01-19 20:03:00 10[facility] PqeaalwWWDWBMEGAPXK0834-38-12 20:03:06632Ipwexwwv HermannHEMATOLOGY 2014-11-10 20:03:0013.3[facility] OshynpiHVOGLGFDPZ4556-25-28 20:03:0081.1[facility] SdbybmcQHFPACWJCH7972-15-28 20:03:0037.9[facility] EnmwrpsFCKYRCOVPG8425-00-28 20:03:004.68[facility] GutxnhtDUJCRVRUHF7472-89-08 20:03:006.7[facility] WOHVRIAUTF7635-12-75 20:03:0035.0[facility] IwovebeFOUVISMTXW2387-44-92 20:03:00* Test Item Value Reference Range Interpretation Comments MCH (test code = MCH) 28.4 pg 27.0-31.0 [facility] TfyvyjpMESJEJCPHX8540-99-97 20:03:007.3[facility] HermannHEMATOLOGY 2014-11-10 20:03:89846Izlqmfag DpfdohsUHPCAHUZYB5793-15-45 20:03:0013.1[facility] PsxswgyUQYDBISWJP2393-42-01 20:03:001.6[facility] MhimsizJPVSLSHUMR8055-25-57 20:03:0069.8[facility] YgsuuvhIYYTWQBMOW6362-06-62 20:03:000.3[facility] XTIXANJLFB0965-03-85 20:03:000.1[facility] VxmehxaCDYQKZFXSL0907-47-25 20:03:000.7 [facility] OafkmxpXRDKZNLDEK3279-41-54 20:03:000.3[facility] HermannHEMATOLOGY 2014-11-10 20:03:004.7[facility] PryewleNWFUFCIRDN8254-05-04 20:03:0024.1[facility] MahfkdfNDIHLDMXZK1733-98-57 20:03:005.1[facility] HermannCARDIAC XMPSWMJ0796-40-38 23:34:00<0.5[facility]annCARDIAC MLOFAPX0719-54-24 23:34:0056[facility] CARDIAC VDHZVMP2077-44-20 23:34:00<0.02[facility]annCARDIAC NRGXDAV1629-55-70 23:34:00<0.9[facility] HermannCHEM UWEGV2882-02-57 23:34:45331Jhbbdnvr HermannCHEM DBCOL4465-86-70 23:34:93835Cfvibghw HermannCHEM EVMEE5225-58-82 23:34:06192 [facility]annCHEM VMJZU8652-95-88 23:34:003.8[facility] HermannCHEM PANEL 2014-04-09 23:34:008[facility]annCHEM LPCSR9265-41-50 23:34:0027[facility]annCHEM ZWGTJ4848-15-65 23:34:009.8[facility] HermannCHEM LAXXU4302-31-58 23:34:47226Cqdkqgxr HermannCHEM JBZUV5898-35-28 23:34:000.9[facility] HermannCHEM BYRFE4186-44-11 23:34:009.4[facility] ZoclaopDURDJNIYZX4393-58-08 23:34:0010.4 [facility] YxghbmjOVFHJOLUWH0505-36-71 23:34:0034.3[facility] HermannHEMATOLOGY 2014-04-09 23:34:00* Test Item Value Reference Range Interpretation Comments MCH (test code = MCH) 28.0 pg 27.0-31.0 [facility] LuymtnwJOVKCOOYKO8993-27-26 23:34:0081.7[facility] HermannHEMATOLOGY 2014-04-09 23:34:0042.5[facility] ZgurjksXGMIBSKLQL6682-12-82 23:34:007.7[facility] HcafzepHUJPWGJPSU8044-58-06 23:34:0014.6[facility] EemasfsTBHBEUKBGY2858-92-37 23:34:005.20[facility] WoavbygXOGKAYBUEW4744-62-55 23:34:37421Acxkeexh Bill AGIAQWTHSE1342-88-47 23:34:0012.9[facility] VlrxbqxMAVCEXYSHH9615-74-11 23:34:00 80.3[facility] KjdrqglKTTRDDTCEK9797-25-04 23:34:003.2[facility] HermannHEMATOLOGY 2014-04-09 23:34:0014.9[facility] UgphbtnXIPZRXIZKE6961-35-43 23:34:000.3[facility] LanfituXJAGIAEVJF9649-06-07 23:34:008.3[facility] JfxpoulDVYHJMFNFR6978-05-90 23:34:001.3[facility] RjrnxctFMGLBNCJQX8889-79-02 23:34:001.5[facility] ZGTSZPWGUO0154-13-96 23:34:000.3[facility] UixbhubFMZXMMVDIT1402-68-34 23:34:000.1 [facility] NfibluzCMGDYGKBDY3875-99-41 23:34:000.0[facility]annURINE AND STOOL 2013-12-30 18:30:21Negative (12/30/13 1:30 PM)[facility] AND STOOL 2013-12-30 18:30:21Negative (12/30/13 1:30 PM)[facility] STOOL 2013-12-30 18:30:21Clear (12/30/13 1:30 PM)[facility]UR[facility] AND STOOL 2013-12-30 18:30:216.0[facility]annURINE AND SYWZH3227-96-84 18:30:211.004 [facility]UR[facility] AND EPQTH0613-25-36 18:30:21Negative (12/30/13 1:30 PM) [facility] ODEVU1553-02-71 18:30:21Negative *NA*(12/30/13 1:30 PM) [facility] FUJPM1213-70-04 18:30:21Colorless *NA*(12/30/13 1:30 PM)[facility] HermannCARDIAC FPHUWUF5075-51-47 18:15:0054[facility] HermannCARDIAC RKJUHWS2341-83-85 18:15:00<0.02[facility] HermannCARDIAC TAWTYMI4016-34-95 18:15:00<0.5[facility] HermannCARDIAC BDRHFLV6045 18:15:00<0.9[facility] HermannCHEM TDOMA6233-32-02 18:15:03013Nvkyipul HermannCHEM PGPJY7923-94-63 18:15:0025[facility] HermannCHEM JAIUX6847-46-62 18:15:0012.4[facility] HermannCHEM ZOKJP6186-82-86 18:15:000.7[facility] HermannCHEM GTKIK8457-21-90 18:15:0064 [facility] HermannCHEM AFNQD7134-23-54 18:15:009[facility] HermannCHEM PANEL 2013-12-30 18:15:001.4[facility] HermannCHEM ZQCRW0817-66-55 18:15:0010[facility] HermannCHEM VLWBT3269-03-69 18:15:003.2[facility] HermannCHEM IXSJJ2008-62-06 18:15:33655Gheywrcr HermannCHEM HOGCR9768-41-38 18:15:009.2[facility] HermannCHEM GVVAD6633-23-62 18:15:65885Iasmlxsk HermannCHEM RMBOO4212-41-10 18:15:000.8 [facility] HermannCHEM EUGET6342-39-44 18:15:007[facility] HermannCHEM PANEL 2013-12-30 18:15:0028[facility] HermannCHEM KGWFD1809-81-94 18:15:50241Uqrlrtzy HermannCHEM LRAVQ9840-02-96 18:15:003.4[facility] HermannCHEM IQTUD8369-48-89 18:15:004.4[facility] HermannCHEM AZFFI1368-00-91 18:15:007.6[facility] PKSSPWEZKL5161-50-60 18:15:26445Aabsswzd RdbsfatRVYLSQPJZB6795-82-07 18:15:00 12.7[facility] IwvlqykAEFJFUYTRR9754-41-84 18:15:00* Test Item Value Reference Range Interpretation Comments MCH (test code = MCH) 28.4 pg 27.0-31.0 [facility] NxvjzgsSNLBIOKJTC5646-70-74 18:15:007.6[facility] HermannHEMATOLOGY 2013-12-30 18:15:0014.1[facility] SmguglkXXVMJTQIAI4979-01-43 18:15:0080.9[facility] EyqpzuvXYXJGFMGWY6532-45-31 18:15:0040.2[facility] CwfxiivKCOWXVITNW8300-05-00 18:15:0035.1[facility] QygloeiSXBAQZBNBJ0810-35-10 18:15:004.97[facility] OCAQFRXGUP0017-93-53 18:15:009.3[facility] CjnfxaaVYEDEWWVDG8865-32-88 18:15:000.0 [facility] CqeusilMNSAMHDSLT1937-32-94 18:15:000.0[facility] HermannHEMATOLOGY 2013-12-30 18:15:000.5[facility] EaolitlPLALXAGGMN6448-16-90 18:15:0076.0[facility] VkwhpupDWRELKFOIO4897-88-04 18:15:001.7[facility] HfqzvuiNRELCNDYVY3319-11-30 18:15:007.1[facility] VinhcycINVKKFKBEB2241-42-08 18:15:000.2[facility] PABOPAONPW7672-60-35 18:15:000.4[facility] MipvbuxBKTFXLHBKC5820-15-22 18:15:005.4 [facility] DwkzekoJCBSIEECLC2056-87-01 18:15:0018.0[facility]
== END 2020-05-08 02:48 | disposition left against medical advice (07) ==
LOC: ER 22:49
DX: S20.219A Contusion of unspecified front wall of thorax, initial encounter (principal); R09.02 Hypoxemia; V43.52XA Car driver injured in collision with other type car in traffic accident, initial encounter; Y92.488 Other paved roadways as the place of occurrence of the external cause; E11.65 Type 2 diabetes mellitus with hyperglycemia; I10 Essential (primary) hypertension; E78.5 Hyperlipidemia, unspecified; F17.210 Nicotine dependence, cigarettes, uncomplicated
CPT/HCPCS: 36415; 70450; 71260; 72125; 74177; 80053; 82948; 85025; 93005; 99284; J2270; J2405; J7030; Q9967

== ENCOUNTER 2022-01-28 21:49 | Emergency (ER) | payer OTHER ==
[~2022-01-28] VITALS: Ht 205.7 cm; Wt 99.8 kg
[2022-01-28 23:44] LABS: BASOPHILS % 0.4 % (0.0-1.0); EOSINOPHILS # (AUTO) 0.1 (0.0-0.4); EOSINOPHILS % 0.9 % (0.0-6.0); HEMATOCRIT 46.2 % (38.2-49.6); HEMOGLOBIN 15.8 g/dL (14.0-18.0); LYMPHOCYTES # (AUTO) 2.1 (1.0-3.2); LYMPHOCYTES % 21.3 % (18.0-39.1); MEAN CORPUSCULAR HEMOGLOBIN 27.7 pg (28-32); MEAN CORPUSCULAR HGB CONC 34.2 g/dL (31-35); MEAN CORPUSCULAR VOLUME 80.9 fL (81-99); MONOCYTES # (AUTO) 0.5 (0.2-0.8); MONOCYTES % 4.8 % (4.4-11.3); NEUTROPHILS # (AUTO) 7.1 (2.1-6.9); NEUTROPHILS % 71.2 % (38.7-80.0); PLATELET COUNT 319 x10e3/uL (140-360); RED BLOOD COUNT 5.71 x10e6/uL (4.3-5.7); RED CELL DISTRIBUTION WIDTH 12.8 % (11.7-14.4)
[2022-01-28 23:58] LABS: ANION GAP 20.2 mmol/L (8-16); CREATININE, SERUM 1.15 mg/dL (0.72-1.25); POTASSIUM 4.2 mmol/L (3.5-5.1)
[2022-01-28 23:59] LABS: ALBUMIN 3.7 g/dL (3.5-5.0); CALCIUM 9.1 mg/dL (8.4-10.2)
[2022-01-29] LABS: CREATINE KINASE MB 0.5 ng/mL (0-5.0)
[2022-01-29] MEDS ORDERED: SODIUM CHLORIDE 0.9% 1000ML 1,000 ML IV STA (00:01)
[2022-01-29] MEDS ORDERED: INSULIN REGULAR, HUMAN 100 UNIT/1 ML IV ONE (00:15)
[2022-01-29 00:23] LABS: INR 0.88; PARTIAL THROMBOPLASTIN TIME 26.9 seconds (23.8-35.5); PROTHROMBIN TIME 12.8 seconds (11.9-14.5)
[2022-01-29 01:27] LABS: CLARITY,URINE CLEAR (CLEAR); COLOR,URINE YELLOW (YELLOW); LEUKOCYTE ESTERASE ,URINE NEGATIVE (NEGATIVE); NITRITE,URINE NEGATIVE (NEGATIVE); PROTEIN,URINE DIPSTICK NEGATIVE (NEGATIVE)
[2022-01-29 01:28] LABS: BACTERIA,URINE FEW /HPF; EPITHELIAL CELLS,URINE FEW /LPF; KETONES,URINE NEGATIVE (NEGATIVE); RBC,URINE 0-5 /HPF (0-5); URINE UROBILINOGEN 0.2 mg/dL (0.2 - 1); WBC,URINE (MAN) 0-5 /HPF (0-5)
[2022-01-29] MEDS ORDERED: KETOROLAC TROMETHAMINE 30 MG/ML VIAL IV STA (01:51)
[2022-01-29] MEDS ORDERED: CYCLOBENZAPRINE5 MG PO (02:06)
[2022-01-29] MEDS ORDERED: IBUPROFEN400 MG PO (02:06)
[2022-01-29] MEDS ORDERED: METFORMIN HCL500 MG PO (02:06)
== END 2022-01-29 02:20 | disposition home or self-care (01) ==
LOC: ER 21:56
DX: M51.26 Other intervertebral disc displacement, lumbar region (principal); M48.061 Spinal stenosis, lumbar region without neurogenic claudication; R20.0 Anesthesia of skin; I10 Essential (primary) hypertension; E11.9 Type 2 diabetes mellitus without complications; V89.2XXA Person injured in unspecified motor-vehicle accident, traffic, initial encounter; Z79.84 Long term (current) use of oral hypoglycemic drugs
CPT/HCPCS: 36415; 71250; 72131; 73562; 73590; 74176; 80053; 81001; 82550; 82553; 83690; 83880; 84484; 85025; 85610; 85730; 99284; J1885; J7030

== ENCOUNTER 2022-08-26 15:12 | Emergency (ER) | payer OTHER ==
[~2022-08-26] VITALS: Ht 205.7 cm; Wt 99.8 kg
[~2022-08-26 15:12] MED LIST: CYCLOBENZAPRINE5 MG PO; IBUPROFEN400 MG PO; METFORMIN HCL500 MG PO
[2022-08-26] MEDS ORDERED: AMOXICILLIN500 MG PO (17:36)
== END 2022-08-26 17:41 | disposition home or self-care (01) ==
LOC: ER 15:35
DX: S00.83XA Contusion of other part of head, initial encounter (principal); R51.9 Headache, unspecified; R07.89 Other chest pain; M54.2 Cervicalgia; W01.198A Fall on same level from slipping, tripping and stumbling with subsequent striking against other object, initial encounter; Y92.89 Other specified places as the place of occurrence of the external cause; I10 Essential (primary) hypertension; E11.9 Type 2 diabetes mellitus without complications; E78.5 Hyperlipidemia, unspecified; F17.210 Nicotine dependence, cigarettes, uncomplicated
CPT/HCPCS: 70450; 71046; 72125; 99283